=== PATIENT | male | born 1945 | race Caucasian/White ===

== ENCOUNTER → 2016-02-16 | Outpatient (CLI) | payer MEDICARE, OTHER | LOC: VM.DI 08:39 | PROVIDERS: ATTEND Internal Medicine | DX: T38.0X1A Poisoning by glucocorticoids and synthetic analogues, accidental (unintentional), initial encounter (principal); M81.8 Other osteoporosis without current pathological fracture; M81.0 Age-related osteoporosis without current pathological fracture | CPT/HCPCS: 77080 ==

== ENCOUNTER 2019-08-15 06:32 | Day surgery (SDC) | payer MEDICARE, OTHER ==
[2019-08-15] MEDS ORDERED: Lactated Ringers 1,000 ML IV SCH (07:00)
[2019-08-15] MEDS ORDERED: Propofol 200 MG/20 ML SDV ONE ×2 (07:59→09:21)
[2019-08-15] MEDS ORDERED: fentaNYL 100 MCG/2 ML SDV ONE (07:59)
[2019-08-15 10:02] VITALS: BP 132/72; PULSE 65
--- NOTE | 2019-08-15 14:11 | OR ---
DATE OF SURGERY: 08/15/2019. REFERRING PROVIDER: Brenna Monge DO PRE-OPERATIVE DIAGNOSES: History of ulcerative colitis, which sounds to be just proctitis before. Last colonoscopy was 07/2013. Does not look like there is any history of dysplasia. Last flare up of colitis was fall 2018. He is on chronic oral prednisone for this, as well as his ankylosing spondylitis. POST-OPERATIVE DIAGNOSES: 1. Four small polyps removed all using cold forceps. a. 2 mm polyp x3 at 45 cm. b. 2 mm rectal polyp. 2. Normal-appearing colonic mucosa. Random biopsies taken from: a. Four bites from the right colon. b. Four bites from transverse colon. c. Six bites from left colon. d. Two bites from rectal mucosa. 3. Mild left-sided diverticulosis. 4. Floppy redundant colon. PROCEDURE: Colonoscopy with polypectomy x4 using cold forceps. Random biopsies taken from each of the colonic segments as noted above. SURGEON: Brando Chong M.D. ANESTHESIA: Monitored anesthesia care. BOWEL PREP: Fair to good. Otoniel is a 74-year-old male who was brought to the endoscopy suite after discussing risks and benefits of the procedure. Informed consent was obtained for conscious sedation and colonoscopy with or without biopsy and/or polypectomy. We also discussed possibility of missed lesions. Pre-procedure exam was unremarkable. IV, oxygen, and monitors were placed. The patient was placed in the left lateral decubitus position. Sedation was administered and a digital rectal exam was performed and unremarkable, except for weak anal sphincter. Colonoscope was passed into the rectum and slowly advanced all the way to the cecum. The patient did have floppy redundant colon. Cecum was viewed and photographed. Colonoscope was slowly withdrawn and mucosa was closely observed in direct circumferential manner. Colonic mucosa was normal in appearance without any evidence for gross colitis. Random biopsies were taken from each segment as noted above. Otherwise, the ascending colon was unremarkable. The transverse colon was unremarkable. The descending colon and sigmoid colon revealed some mild diverticulosis. The sigmoid colon revealed 2 mm polyp x3 at 45 cm, all removed using cold forceps. Rectal mucosa did reveal 2 mm polyp at 10 to 12 cm. Retroflexion was performed. Rectal mucosa unremarkable. Scope was removed. The patient tolerated the procedure well. The patient was monitored until that baseline status. Discharge instructions were reviewed and the patient was discharged in good condition. COMPLICATIONS: None. TOTAL TIME: 30 minutes. ESTIMATED BLOOD LOSS: About 2 mL. RECOMMENDATIONS/FOLLOW-UP: We will await results of path report to determine ideal followup interval. I would like to kindly thank Brenna Monge for this referral. DMB: 08/15/2019 10:18:01 MODL: 08/15/2019 13:36:08 /[id number]
== END 2019-08-15 13:00 | disposition home or self-care (01) ==
LOC: VM.SDS 06:32
PROVIDERS: ATTEND Family Medicine
DX: Z12.11 Encounter for screening for malignant neoplasm of colon (principal); K62.1 Rectal polyp; K63.5 Polyp of colon; K57.30 Diverticulosis of large intestine without perforation or abscess without bleeding; M45.9 Ankylosing spondylitis of unspecified sites in spine; E78.5 Hyperlipidemia, unspecified; I10 Essential (primary) hypertension; D50.9 Iron deficiency anemia, unspecified; M81.0 Age-related osteoporosis without current pathological fracture; E09.9 Drug or chemical induced diabetes mellitus without complications; N40.0 Benign prostatic hyperplasia without lower urinary tract symptoms; T38.0X5A Adverse effect of glucocorticoids and synthetic analogues, initial encounter; Z11.59 Encounter for screening for other viral diseases; Z79.899 Other long term (current) drug therapy; Z79.52 Long term (current) use of systemic steroids; Z88.1 Allergy status to other antibiotic agents; Z88.8 Allergy status to other drugs, medicaments and biological substances; Z87.81 Personal history of (healed) traumatic fracture; Z87.19 Personal history of other diseases of the digestive system; Z86.718 Personal history of other venous thrombosis and embolism; Z98.890 Other specified postprocedural states
CPT/HCPCS: 00811; 88305; J2704; J3010; J7120; U0002

== ENCOUNTER 2020-07-23 13:39 | Inpatient (IN) | payer MEDICARE, OTHER ==
[2020-07-23] MEDS ORDERED: Polyethylene Glycol 3350 Powder 17 GM Packet PO PRN (15:27)
[2020-07-23] MEDS ORDERED: Non-Formulary Medication 1 Each (Naloxone Hcl [Narcan] 4 MG Spray) NAS PRN (15:27)
[2020-07-23] MEDS ORDERED: oxyCODONE 5 MG Tab PO PRN (15:27)
[2020-07-23] MEDS ORDERED: Acetaminophen 325 MG Tab PO SCH (15:30)
[2020-07-23] MEDS: Acetaminophen 325 MG Tab PO SCH (18:11)
[2020-07-23] MEDS: traMADol 50 MG Tab PO SCH (18:12)
[2020-07-23] MEDS: INDOMETHACIN 75 MG PO SCH (18:15)
--- NOTE | 2020-07-23 19:28 | HP ---
CHIEF COMPLAINT: Bilateral knee replacements on 07/20/2020. HISTORY OF PRESENT ILLNESS: This is a 75-year-old male with known underlying steroid-dependent ankylosing spondylitis and ulcerative colitis who had pain in his knees and legs for many months. He began walking more in February. He had been working hard on preoperative exercises and he had an excellent postoperative course. He had a lot of leg pain and muscle aches, but it is finally better today. He has been on scheduled tramadol 4 times a day and it is working. He does not think he has taken any p.r.n. oxycodone. He has used narcotics in the past for some of his back surgeries. The patient did have to use a suppository for bowel movement today, but attributes that to not eating much before surgery. He has not had any cough. No shortness of breath. No chest pain. Postoperative discharging hemoglobin was 11.5. His white count was up to 15.5. He was supposed to get some Solu-Medrol for stress doses of steroids at surgery. Otherwise, the patient has not been vaccinated for COVID, but does not believe he has been ill with it. ALLERGIES: Levaquin, tendon rupture. Statins, muscle aches. MEDICATIONS: Medication list is reviewed. He is on Eliquis 2.5 mg twice daily for DVT prophylaxis with a stop date of 08/01/2020. He is on the tramadol 50 mg every 6 hours for 30 doses, stop date 07/31/2020, but discussed will likely wean down to 3 times a day and twice a day. He is on oxycodone 5 to 10 mg every 4 hours as needed for pain, Prilosec 20 mg daily, Narcan if needed. Tylenol 650 every 6 hours for 5 days, stop date 07/28/2020, will likely change it to p.r.n. then. MiraLAX as needed for constipation. Prednisone 12.5 mg daily, recently discharged from prior to surgery. Lotensin 10 mg daily, Indocin 75 mg twice daily, Prolia every 6 months, vitamin D, calcium carbonate, and magnesium oxide 500 daily. At one point, Celebrex was ordered, but I suspect due to him being on Indocin, this was discontinued. PAST MEDICAL HISTORY: Includes: 1. Ankylosing spondylitis. He took immunosuppressive medications, but had recurrent infections and Arava causes diarrhea. 2. He has history of kidney stones. 3. He has had chronic back pain, but previous lumbar fusions needed for burst fractures with chronic pain syndrome and prolonged opioid use, but weaned off. At one point was on Cymbalta. 4. DVT associated with PICC line in the past for IV antibiotics. 5. Hyperlipidemia. 6. Essential hypertension. 7. Hypertriglyceridemia. 8. Prediabetes. 9. 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 10.Osteoporosis. 11.Obesity. 12.Osteoarthritis. 13.Sleep disorder. 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 PAST SURGICAL HISTORY: He has had those multiple back surgeries. He has had cataract surgery, wrist fusion, TURP, tendon repairs in his left hand, Achilles tendon surgery bilaterally for tendon rupture, kidney stone surgeries, shoulder repair, right clavicle partial resection for infections in 2012, mass excision in the axillary area, left nephrostomy tube placement with extracorporeal shockwave lithotripsy, even thoracic spine fusions, colonoscopies. SOCIAL HISTORY: The patient is . He lives independently at home. He does have a daughter traveling back to help him with his recovery. He spent time traveling the country in his RV this winter. He is a nonsmoker, nondrinker. FAMILY HISTORY: Both parents are . Dad had a heart attack. REVIEW OF SYSTEMS: General: No weight changes. HEENT: No trouble swallowing. Cardiac: No chest pain. No palpitations. Respiratory: No cough, no shortness of breath. Abdomen: No nausea, vomiting, or diarrhea. Did take some medications to get bowels moving, but attributes this to recent surgery. Otherwise, all systems reviewed and found to be negative unless otherwise stated. PHYSICAL EXAMINATION: Vital Signs: His weight 82.3 kg, temp 98.3, pulse 84, blood pressure 136/59, respiratory rate 16, O2 of 97% on room air. General: He is in no acute distress. Heart: Regular rate and rhythm. S1, S2 without murmur. Lungs: Lung sounds are clear to auscultation bilaterally without crackles or wheezes. Abdomen: Mildly distended, but positive bowel sounds. Soft, nontender. Extremities: Warm and dry. No edema. He has significant bruising on his shins and calves, but no calf tenderness. Knee excisions, I did not fully take down his wounds, but you could see that he has good range of motion for his stage of recovery and no joint effusion. Mental Status: Alert and orientated x3. ASSESSMENT: 1. Postoperative from bilateral knee replacement, 07/20/2020. 2. Underlying ankylosing spondylitis and ulcerative colitis, steroid- dependent. 3. Steroid-induced osteoporosis. 4. History of benign prostatic hyperplasia with previous TURP. 5. Essential hypertension. 6. Hyperlipidemia. 7. Steroid-induced diabetes, but now more prediabetes. We will check lab work tomorrow. No routine blood sugars planned. 8. Obesity. PLAN: The patient will be admitted for swing bed cares. He is code level 1. We will continue pain medications and reassess in the next 1 to 2 days for further tapering. We will get lab work tomorrow. We will finish the 9 more days of Eliquis. We will get him up and working with therapies and staple removal in 2 weeks postop. However, the patient will likely be discharged home by then. MKA: 07/23/2020 15:38:05 MODL: 07/23/2020 19:18:44 /[id number]
[2020-07-23] MEDS: Apixaban 2.5 MG Tab PO SCH (19:31)
[2020-07-23] MEDS ORDERED: Non-Formulary Medication 1 Each (Celecoxib [Celecoxib] 200 MG Capsule) PO SCH (20:00)
[2020-07-24] MEDS: traMADol 50 MG Tab PO SCH ×4 (00:14→19:51)
[2020-07-24] MEDS: Acetaminophen 325 MG Tab PO SCH ×5 (00:18→23:19)
[2020-07-24] MEDS: Omeprazole 20 MG Cap.CR PO SCH (06:32)
[2020-07-24 07:25] LABS: ANION GAP 7.3 mmol/L (5-15); CHLORIDE,CL 104 mmol/L (98-107); SODIUM,NA 140 mmol/L (136-145)
--- OUTSIDE RECORDS SUMMARY | 2020-07-24 08:06 | XMSREPORT ---
:1945 Author Organization [facility] s Address [address] [place] [address] Care Team Providers Name Role Phone DO Saleem Primary Care Provider DO Saleem Attributed Provider Reason for Visit Reason Comments Auth/Cert (Routine) Status Reason Specialty Diagnoses / Referred By Referred To Procedures Contact Contact Continuity of Diagnoses Bilateral primary osteoarthritis of knee [place], [facility] Procedures ARTHROPLASTY KNEE [facility] COMPARTMENTS WWO EZEQUIEL Aguilar MD [address] [place] [address] Encounter Details Date Type Department Care Team Description 07/20/2020 - [facility] Jeff Sutherland Ankylosin g 07/23/[address] spondylitis ([facility]) [address] [place] [address] [place] [address] [place] [address] [phone] Allergies Active Allergy Reactions Severity Noted Date Comments Levaquin Rash, Unknown/Not Verified 02/13/2012 R uptured tendons per patient. Hmg-Coa-R Inhibitors Statin Contraindication - 017 Intolerance Simvastatin Statin Contraindication - 04/02/2014 Intolerance documented as of this encounter (statuses as of 07/23/2020) Medications Medication Sig Dispensed Refills Start Date End Date Status magnesium oxide Take 500 mg by mouth 0 Active 500 MG TABS tablet 1 time per day. vitamin D3, Take 2,000 Units by 0 Active cholecalciferol, mouth 1 time per 1000 UNITS tablet day. calcium carbonate Take 1,200 mg by 0 Active 600 mg tablet mouth 1 time per day. denosumab (PROLIA) Inject 1 mL (60 mg) 1 mL 1 07/30/2019 Active 60 MG/ML subcutaneously Every 1 subcutaneous 6 months solutionIndication s: Senile osteoporosis predniSONE 2.5 mg Take 1 tablet (2.5 90 tablet 4 07/13/2020 Active tabletIndications: mg) by mouth 1 time Ulcerative colitis per day Take in with complication, addition to the 10 unspecified mg dose to equal location (HCC) 12.5 mg benazepril Take 1 tablet (10 90 tablet 3 07/13/2020 Active (LOTENSIN) 10 mg mg) by mouth 1 time tabletIndications: per day Essential hypertension indomethacin cr TAKE 1 CAPSULE BY 180 capsule 3 07/13/2020 Active (INDOCIN CR) 75 MG MOUTH TWICE A DAY capsuleIndications WITH MEALS : Ankylosing spondylitis, unspecified site of spine (HCC) Additional Information Patient taking differently: 75 mg Oral Two times a day with meals, TAKE 1 CAPSULE BY MOUTH TWICE A DAY WITH MEALS, Reported on 07/20/2020 predniSONE 10 mg TAKE 1 TABLET BY 90 tablet 3 07/13/2020 Active tabletIndications: MOUTH ONCE DAILY Spondyloarthropathy EVERY MORNING WITH FOOD Additional Information Patient taking differently: 10 mg Oral DAILY, TAKE 1 TABLET BY MOUTH ONCE DAILY EVERY MORNING WITH FOOD, Reported on 07/20/2020 oxyCODONE (OXY-IR) 5 mg Take 1-2 tablets 30 tablet 0 1 Active tablet (immediate (5-10 mg) by mouth release)Indications: Status Every 4 hours as post total bilateral knee needed for moderate replacement pain or severe pain for up to 30 doses traMADol (ULTRAM) 50 mg Take 1 tablet (50 30 tablet 0 07/24/19 21 Active tabletIndications: Status mg) by mouth Every 021 post total bilateral knee 6 hours for 30 replacement doses celecoxib (CELEBREX) 200 mg Take 1 capsule (200 20 capsule 0 0 07/23/2020 Active capsuleIndications: Status mg) by mouth 2 021 post total bilateral knee times a day for 20 replacement doses nalOXone (NARCAN) 4 MG/0.1ML [place] 1 spray (4 0.2 mL 0 07/07 Active nasal sprayIndications: mg) into one 022 Status post total bilateral nostril 1 time; may knee replacement repeat in opposite nostril in 2 to 3 minutes if person does not respond. omeprazole (PRILOSEC) 20 mg Take 1 capsule (20 35 capsule 0 Active capsuleIndications: Status mg) by mouth 1 time 021 post total bilateral knee a day in the replacement morning apixaban (ELIQUIS) 2.5 MG Take 1 tablet (2.5 18 tablet 0 07/23 Active tabletIndications: mg) by mouth 2 021 Prophylaxis of DVT in times a day for 9 Orthopedic Surgery days Indications: Prophylaxis of Deep Vein Thrombosis in Orthopedic Surgery acetaminophen (TYLENOL) 325 Take 2 tablets (650 40 tablet 0 Active mg tabletIndications: Status mg) by mouth Every 021 post total bilateral knee 6 hours for 5 days replacement polyethylene glycol Take 1 packet by 30 packet 0 07/23/2020 Active (MIRALAX) 17 g mouth 1 time a day 021 packetIndications: Status as needed for post total bilateral knee constipation replacement Dissolve in 4 to 8 ounces of water, juice, soda, coffee, tea. 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 Encounter for long-term (current) use of other high-ri sk medications 12/22/2014 Bilateral knee pain 12/22/2014 Overview: R knee drained x 2 osteoarthritis presen t, synvisc helps last given in 09/07/15, R knee 60 ml removed 10/23 and got synvisc again Primary osteoarthritis involving multiple joints 12/22 Chronic pain syndrome 12/22/2014 Thoracic spine fracture 09/16/2014 Hypertriglyceridemia 08/07/2014 Post-traumatic arthritis of left wrist 04/10/2014 Obesity 01/07/2014 Overview: Trial of phentermine 01/19, no help so s topped 03/23 Sleep disorder 01/07/2014 Overview: saw sleep clinic, intrinsic disorder wit h frequent arousals and snoring 12/20. Trial of Ativan at . Iron deficiency anemia 08/19/2013 Overview: egd normal 07/20, c-scope quiescent IBD Senile osteoporosis 05/06/2013 Overview: T -2.5 at the hip and 0.8 at the wrist, spine can't be assessed due to surgery. He is on prolia for Osteoporosis since 05/19 2. Improvement in bone density compared to the 2007 baseline. Stable bone density compared to the most recent prior study from 2014. Dexa 05/25 showed T -1.3 at the hips but -1.9 at the femoral neck. Increased left and stable right hip densities. 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 Stopped Januvia due to cost 10/22 Hyperlipemia 01/31/2013 Overview: mild and could not tolerate statins due to myalgia. Will try Zocor again in 01/19, still myalgia pt prefers not to take meds for cholesterol Hypertension 01/31/2013 Chronic back pain 01/31/2013 Overview: S/p lumbar fusion in 10/19 on a pain cont ract signed 01/18, lumbar surgery again for fracture in 03/22. Tried cymbalta for mood disorder but stopped in 04/19. 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 Off immunosuppressants for Ankylosing spondylitis other than prednisone during that time. DVT of upper extremity (deep vein thrombosis) 11/10/19 12 Overview: Probably Picc lines related completed co umadin Closed fracture of clavicle 12/02/2010 Right arm pain 09/08/2010 Localized osteoarthritis of hand 11/25/2008 Ankylosing spondylitis 04/01/2002 Overview: Took mtx in the past caused mental probl ems chronically on steroids like above 10 mg per day. 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 Flare increased steroids 06/23, last scop e 08/25 biopsies no diagnostic abnormalities, hyperplastic polyp Calculus of kidney Overview: Never had a gout attack but on allopurin ol to prevent kidney stones although states stones were calcium stones but was drinking more pop at that time Steroid-induced osteoporosis Overview: 1. Osteoporosis. T -2.8 in the hip, sta rted prolia 2011, took fosamax prior 2. Improvement in bone density compared to the 2007 baseline. Stable bone density compared to the 2009 exam. Had a clavicle fracture, and spinal frac tures, rib fractures (fractures starting in ) T -2.7 in 05/21 improved density continue prolia T9 fracture and thoracic fusion surgery in 09/20 discussed forteo but he declines prefers to stay with prolia documented as of this encounter (statuses as of 07/23/2020) Resolved Problems Problem Noted Date Resolved Date Hematoma of neck 03/07/2012 12/24/2014 care home current use of anticoagulant therapy 11/10/2011 04/04/2012 Osteoarthritis of spine 09/15/2010 04/04/2012 BPH w/o urinary obs/LUTS 11/16/2009 04/04/2012 Pure hypercholesterolemia 07/13/2007 02/03/2013 Backache 02/10/2003 02/03/2013 Arthropathy 04/01/2002 02/03/2013 Essential hypertension, benign 04/01/2002 3 Hypertrophy (benign) of prostate 04/01/2002 013 documented as of this encounter (statuses as of 07/23/2020) Immunizations Name Administration Dates Next Due Pneumococcal Conj PCV13 08/07/2014 Pneumococcal Polysaccharide PPSV23 12/30/2009 Td(adult)preservative free 12/30/2009 Zoster Live(Zostavax) 01/12/2010 documented as of this encounter Social History Tobacco Use Types Packs/Day Years Used Date Never Smoker Smokeless Tobacco: Never Used Alcohol Use Standard Drinks/Week Comments No 0 (1 standard drink = 0.6 oz pure alcoho l) Alcohol Habits Answer Date Recorded How often do you have a drink containing alcohol? Never 07/20/2020 How many drinks containing alcohol do you have on a typical Not asked day when you are drinking? How often do you have six or more drinks on one occasion? [place] 07/20/2020 Sex Assigned at Date Recorded Male 06/11/2020 3:17 PM CDT documented as of this encounter Last Filed Vital Signs Vital Sign Reading Time Taken Comments Blood Pressure 122/55 07/23/2020 7:50 AM CDT Pulse 82 07/23/2020 7:50 AM CDT Temperature 36.8 C (98.2 F) 07/23/2020 7:50 AM CDT Respiratory Rate 16 07/23/2020 7:50 AM CDT Oxygen Saturation 96% 07/23/2020 7:50 AM CDT Inhaled Oxygen Concentration - - Weight 82.3 kg (181 lb 7 oz) 07/20/2020 5:54 AM CDT Height 166.4 cm (5' 5.51") 07/20/2020 5:54 AM CDT Body Mass Index 29.72 07/20/2020 5:54 AM CDT documented in this encounter Functional Status Functional Status Response Date of Assessment Is the person deaf or does he/she have serious difficulty No 07/31/2017 hearing? Is this person blind or does he/she have difficulty No 07/31/2017 seeing even when wearing glasses? Do you have difficulty with walking, balance, climbing No 10/29/2018 stairs, or had a fall in the last 3 months? Does the patient have difficulty dressing or bathing? No 07/31/2017 Because of a physical, mental, or emotional condition; No 07/31/2017 does this person have difficulty doing errands alone such as visiting a doctor's office or shopping? Cognitive Status Response Date of Assessment Because of a physical, mental, or emotional condition; No 07/31/2017 does this person have serious difficulty concentrating, remembering, or making decisions? documented as of this encounter Discharge Summaries Not on filedocumented in this encounter Medications at Time of Discharge Medication Sig Dispensed Refills Start Date End Date oxyCODONE (OXY-IR) 5 mg Take 1-2 tablets 30 tablet 0 2020 tablet (immediate (5-10 mg) by mouth release)Indications: Every 4 hours as Status post total needed for moderate bilateral knee pain or severe pain replacement for up to 30 doses traMADol (ULTRAM) 50 mg Take 1 tablet (50 30 tablet 0 07/23 tabletIndications: Status mg) by mouth Every 6 1 post total bilateral knee hours for 30 doses replacement celecoxib (CELEBREX) 200 Take 1 capsule (200 20 capsule 0 mg capsuleIndications: mg) by mouth 2 times 1 Status post total a day for 20 doses bilateral knee replacement apixaban (ELIQUIS) 2.5 MG Take 1 tablet (2.5 18 tablet 0 tabletIndications: mg) by mouth 2 times 1 Prophylaxis of DVT in a day for 9 days Orthopedic Surgery Indications: Prophylaxis of Deep Vein Thrombosis in Orthopedic Surgery acetaminophen (TYLENOL) Take 2 tablets (650 40 tablet 0 325 mg tabletIndications: mg) by mouth Every 6 1 Status post total hours for 5 days bilateral knee replacement polyethylene glycol Take 1 packet by 30 packet 0 07/23/2020 (MIRALAX) 17 g mouth 1 time a day 1 packetIndications: Status as needed for post total bilateral knee constipation replacement Dissolve in 4 to 8 ounces of water, juice, soda, coffee, tea. predniSONE 2.5 mg Take 1 tablet (2.5 90 tablet 4 07/13/2020 tabletIndications: mg) by mouth 1 time Ulcerative colitis with per day Take in complication, unspecified addition to the 10 location (HCC) mg dose to equal 12.5 mg benazepril (LOTENSIN) 10 Take 1 tablet (10 90 tablet 3 08/2020 mg tabletIndications: mg) by mouth 1 time Essential hypertension per day indomethacin cr (INDOCIN TAKE 1 CAPSULE BY 180 capsule 3 08/2020 CR) 75 MG MOUTH TWICE A DAY capsuleIndications: WITH MEALS Ankylosing spondylitis, unspecified site of spine (HCC) predniSONE 10 mg TAKE 1 TABLET BY 90 tablet 3 07/13/2020 tabletIndications: MOUTH ONCE DAILY Spondyloarthropathy EVERY MORNING WITH FOOD denosumab (PROLIA) 60 Inject 1 mL (60 mg) 1 mL 1 07/29 MG/ML subcutaneous subcutaneously Every 1 solutionIndications: 6 months Senile osteoporosis vitamin D3, Take 2,000 Units by 0 cholecalciferol, 1000 mouth 1 time per UNITS tablet day. calcium carbonate 600 mg Take 1,200 mg by 0 tablet mouth 1 time per day. magnesium oxide 500 MG Take 500 mg by mouth 0 TABS tablet 1 time per day. nalOXone (NARCAN) 4 [place] 1 spray (4 mg) 0.2 mL 0 2020 MG/0.1ML nasal into one nostril 1 2 sprayIndications: Status time; may repeat in post total bilateral knee opposite nostril in replacement 2 to 3 minutes if person does not respond. omeprazole (PRILOSEC) 20 Take 1 capsule (20 35 capsule 0 mg capsuleIndications: mg) by mouth 1 time 1 Status post total a day in the morning bilateral knee replacement documented as of this encounter Progress Notes Jojo Dc PA - 07/23/2020 10:49 AM CDT Ortho Progress Note Otoniel Moncada is a 75yr male here for 3 Days Post-Op, Procedure(s): BILATERAL TOTAL KNEE REPLACEMENT. Patient of BP 122/55 | Pulse 82 | Temp 98.2 F (36.8 C) | Resp 16 | Ht 1.664 m (5' 5.51") | Wt 82.3 kg (181 lb 7 oz) | SpO2 96% | BMI 29.72 kg/m Maximum Temperatures (last 24 hours) Temperature Maximum Max Temp 98.7 F (37.1 C) { Lab Results Component Value Date HEMOGLOBIN 11.8 (L) 07/21/2020 Patient doing ok, complains of mild pain. The patient denies nausea. The wound has No drainage. Compartments soft and non-tender. Distal NV intact. Impression: Procedure(s): BILATERAL TOTAL KNEE REPLACEMENT Past Medical History: Diagnosis Date Ankylosing spondylitis (HCC) Arthritis degenerative Back pain BPH (benign prostatic hypertrophy) without obstruction Chronic back pain Dermatitis RT upper chest DVT (deep venous thrombosis) (HCC) upper extremity, under arm Fracture, clavicle right, nonunion Hematoma of neck Hyperlipidemia Hypertension benign essential Iron deficiency anemia Kidney stones L5 vertebral fracture (HCC) Leg pain, bilateral Osteoporosis steroid induced S/P lumbar fusion S/P TURP Spondyloarthropathy Steroid-induced diabetes (HCC) patient denies Ulcerative proctitis (HCC) chronic Plan: Doing well with Physical and Occupational Therapy today. Continue with Care Plan. Plan swing bed in [place] today. Jojo reynoso PA - 07/22/2020 8:58 AM CDT Ortho Progress Note Otoniel Moncada is a 75yr male here for 2 Days Post-Op, Procedure(s): BILATERAL TOTAL KNEE REPLACEMENT. Patient of BP 124/63 | Pulse 77 | Temp 98.5 F (36.9 C) | Resp 16 | Ht 1.664 m (5' 5.51") | Wt 82.3 kg (181 lb 7 oz) | SpO2 93% | BMI 29.72 kg/m Maximum Temperatures (last 24 hours) Temperature Maximum Max Temp 99 F (37.2 C) { Lab Results Component Value Date HEMOGLOBIN 11.8 (L) 07/21/2020 Patient doing ok, complains of mild pain. The patient denies nausea. The wound has No drainage. Compartments soft and non-tender. Distal NV intact. Impression: Procedure(s): BILATERAL TOTAL KNEE REPLACEMENT Past Medical History: Diagnosis Date Ankylosing spondylitis (HCC) Arthritis degenerative Back pain BPH (benign prostatic hypertrophy) without obstruction Chronic back pain Dermatitis RT upper chest DVT (deep venous thrombosis) (HCC) upper extremity, under arm Fracture, clavicle right, nonunion Hematoma of neck Hyperlipidemia Hypertension benign essential Iron deficiency anemia Kidney stones L5 vertebral fracture (HCC) Leg pain, bilateral Osteoporosis steroid induced S/P lumbar fusion S/P TURP Spondyloarthropathy Steroid-induced diabetes (HCC) patient denies Ulcerative proctitis (HCC) chronic Plan: Will continue with Physical and Occupational Therapy today. Continue with Care Plan. Davide Mueller MD - 07/22/2020 8:35 AM CDT Hospitalist Consult Note Assessment / Plan Active Problems: Ankylosing spondylitis (HCC) Ulcerative (chronic) proctitis (HCC Steroid-induced osteoporosis Closed fracture of clavicle DVT of upper extremity (deep vein thrombosis) (HCC) S/P TURP Arthritis of knee, left S/P lumbar fusion Hyperlipemia Hypertension Chronic back pain Steroid-induced diabetes (HCC) Senile osteoporosis Iron deficiency anemia Obesity Sleep disorder Hypertriglyceridemia Spondyloarthropathy Bilateral knee pain Chronic pain syndrome #SP bilateral total knee arthroplasty - Pain control, scheudled tylenol, tramadol, and prn's - Bowel reg prn - Continue home Prednisone - IS #Ankylosing spondylitis (HCC)- Continue scheduled NSAID #Ulcerative (chronic) proctitis (HCC)- Resume home prednisone dosing Chronic medical conditions: #Hyperlipemia- Stable #Hypertension- Continue home benazapril #Chronic back pain- Stable #Prediabetes- last A1c 6.0. Stable #BPH- Monitor UOP #Obesity Code status: Full DVT ppx: Eliquis per Ortho, SCD's Diet: ADAT Disposition: Will keep today for pain control and therapy. DC tomorrow to [place] swing bed. Hisdaughter will pick him up. Reason for Consult Post operative medical management HPI / History / ROS Patient is a 75 yo male with a PMH of UC on chronic prednisone, ankylosing spondylitis, OA, HTN, HLD, UE dvt secondary to trauma of right clavicle 10 years ago, not on anticoags. He was admitted on 07/20 for bilateral TKA due to pain and OA. Doing well today. No new complains. Pain manageable and doing well with therapy. History Patient Active Problem List Diagnosis Ankylosing spondylitis (HCC) Ulcerative (chronic) proctitis (HCC) Calculus of kidney Localized osteoarthritis of hand Right arm pain Steroid-induced osteoporosis Closed fracture of clavicle DVT of upper extremity (deep vein thrombosis) (HCC) Nonunion of clavicle fracture S/P TURP Arthritis of knee, left S/P lumbar fusion Hyperlipemia Hypertension Chronic back pain Steroid-induced diabetes (HCC) L5 vertebral fracture (HCC) Senile osteoporosis Iron deficiency anemia Obesity Sleep disorder Post-traumatic arthritis of left wrist Hypertriglyceridemia Thoracic spine fracture (HCC) Spondyloarthropathy Encounter for long-term (current) use of other high-risk medications Bilateral knee pain Primary osteoarthritis involving multiple joints Chronic pain syndrome Ulnar neuropathy at elbow, right Rupture of extensor tendon of left hand Cubital tunnel syndrome, right Current Facility-Administered Medications Medication Dose Route Frequency apixaban (ELIQUIS) tablet 2.5 mg 2.5 mg Oral 2 times a day sodium chloride 0.9% flush (adult) 10 mL 10 mL IV 2 times a day and prn acetaminophen (TYLENOL) tablet 650 mg 650 mg Oral Every 6 hours traMADol (ULTRAM) tablet 50 mg 50 mg Oral Every 6 hours oxyCODONE (OXY-IR) tablet 5-10 mg 5-10 mg Oral Every 4 hours prn fentaNYL 100 mcg/2 mL preservative free injection solution 50 mcg 50 mcg IV Every 30 minutes prn ketorolac (TORADOL) intravenous injection 15 mg 15 mg IV Every 6 hours prn celecoxib (celeBREX) capsule 200 mg 200 mg Oral 2 times a day nalOXone (NARCAN) injection solution (vial) 0.4 mg 0.4 mg Injection Every 2 minutes prn nalOXone (NARCAN) injection solution (vial) 0.2 mg 0.2 mg Injection Every 2 minutes prn senna-docusate sodium (SENOKOT-S;PERICOLACE) tablet 1 tablet 1 tablet Oral 2 times a day polyethylene glycol (MIRALAX) packet 1 packet 1 packet Oral Daily magnesium hydroxide (MILK OF MAGNESIA) oral suspension 30 mL 30 mL Oral 2 times a day prn bisacodyl (DULCOLAX) enteric coated tablet 5 mg 5 mg Oral 2 times a day prn bisacodyl (DULCOLAX) suppository 10 mg 10 mg Rectal 1 time a day prn ondansetron (ZOFRAN) injection solution 4 mg 4 mg IV Every 4 hours prn benzocaine-menthol (CEPACOL w/ BENZOCAINE) lozenge 1 lozenge 1 lozenge Mouth/Throat Every 4 hours prn benazepril (LOTENSIN) tablet 10 mg 10 mg Oral daily magnesium oxide tablet 500 mg 500 mg Oral daily predniSONE tablet 12.5 mg 12.5 mg Oral Daily Allergies Allergen Reactions Levaquin Rash and Unknown/Not Verified Ruptured tendons per patient. Statins [Hmg-Coa-R Inhibitors] Statin Contraindication - Intolerance Zocor [Simvastatin] Statin Contraindication - Intolerance Past Medical History: Diagnosis Date Ankylosing spondylitis (HCC) Arthritis degenerative Back pain BPH (benign prostatic hypertrophy) without obstruction Chronic back pain Dermatitis RT upper chest DVT (deep venous thrombosis) (HCC) upper extremity, under arm Fracture, clavicle right, nonunion Hematoma of neck Hyperlipidemia Hypertension benign essential Iron deficiency anemia Kidney stones L5 vertebral fracture ([facility]) Leg pain, bilateral Osteoporosis steroid induced S/P lumbar fusion S/P TURP 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 Past Surgical History: Procedure Laterality Date BACK SURGERY CARPAL TUNNEL Left 05/06/2016 Procedure: LEFT CARPAL TUNNEL RELEASE, LEFT ULNAR TUNNEL RELEASE;; Surgeon: Herberth Woody MD CATARACT EXTRACTION Bilateral COLONOSCOPY couple of them CYSTOSCOPY WITH STENT Left 2003 ureteroscopy, lithotripsy and left stent, ESWL DEBRIDEMENT PROCEDURE 02/17/2012 LEFT FOOT I&D W/FOREIGN BODY EXCISION; Surgeon: Luis Monge DPM DEBRIDEMENT PROCEDURE 04/26/2012 RIGHT SHOULDER INCISION &DRAINAGE ; Surgeon: Benji Ellison MD DEBRIDEMENT PROCEDURE Right 12/06/2012 Procedure: RIGHT SHOULDER IRRIGATION & DEBRIDEMENT,;; Surgeon: Benji Ellison MD EXTRACORPOREAL SHOCK WAVE LITHOTRIPSY Right with nephrostomy tube placement EXTRACORPOREAL SHOCK WAVE LITHOTRIPSY Right , FUSION LUMBAR THORACIC SPINE N/A 10/18/2012 Procedure: L1-L2, L3-L4 TRANSFORAMINAL LUMBAR INTERBODY FUSION W/ T12-L5 PEDICLE SCREW FIXATION;; Surgeon: Brennan Cash MD FUSION LUMBAR THORACIC SPINE N/A 03/11/2013 Procedure: OPEN L5 TO ILEUM STABILIZATION ;; Surgeon: Brennan Cash MD FUSION LUMBAR THORACIC SPINE N/A 09/17/2014 Procedure: T6-T12 THORACIC FUSION WITH O ARM;; Surgeon: Brennan Cash MD IR NEPHROSTOMY TUBE PLACEMENT RIGHT Right 2003 x 2 nephrostolithotomy MASS EXCISION Left 09/30/2013 Procedure: LEFT AXILLARY MASS EXCISION;; Surgeon: Rogelio Chan MD SHOULDER REPAIR 04/19/2012 RIGHT CLAVICLE PARTIAL RESECTION ; Surgeon: Benji Ellison MD SHOULDER REPAIR Right 01/11/2013 Procedure: RIGHT SHOULDER ANTIBIOTIC BEADS REMOVAL;; Surgeon: Benji Ellison MD SPINE SURGERY 10/19 lumbar fusion SURGERY 1969 spine and tailbone fusion SURGERY 09/2010 bilateral primary repair of achilles tendon with flexor tendons with flexor hallucis longus tendon transfer and tenodesis of the flexor digitorum longus SURGERY 1975 kidney stones TENDON REPAIR TRANSFER Left 08/01/2017 Procedure: I;; Surgeon: Herberth Woody MD TOTAL KNEE BILATERAL Bilateral 07/20/2020 Procedure: BILATERAL TOTAL KNEE REPLACEMENT;; Surgeon: Jeff Sutherland MD TURP LASER ASSISTED 2005 WRIST FUSION Left 08/01/2017 Procedure: LEFT WRIST FUSION W/ PROXIMAL ROW CARPECTOMY AND AUTOLOGOUS BONE GRAFT; RECONSTRUCTION OF LEFT HAND EXTENSOR TENDONS USING GRACILIS TENDON ALLOGRAFT;; Surgeon: Herberth Woody MD YAG CAPSULOTOMY - OS - LEFT EYE Left 10/25/2018 Dr Shamar Monge Family History Problem Relation Age of Onset Other Mother brain tumor Arthritis Mother Not otherwise listed - Cancer Mother Heart Attack Father Arthritis Father Heart Disease Father Hypertension Father Cataracts Neg Hx Glaucoma Neg Hx Macular Degeneration Neg Hx Anesth Problems Neg Hx Social History Socioeconomic History Marital status: Spouse name: Not on file Number of children: Not on file Years of education: Not on file Highest education level: Not on file Tobacco Use Smoking status: Never Smoker Smokeless tobacco: Never Used Substance and Sexual Activity Alcohol use: No Alcohol/week: 0.0 standard drinks Drug use: No Social Determinants of Health Physical Activity: Days of Exercise per Week: Minutes of Exercise per Session: Stress: Feeling of Stress : Social Connections: Frequency of Communication with Friends and Family: Frequency of Social Gatherings with Friends and Family: Attends Congregational Services: Active Member of Clubs or Organizations: Attends Club or Organization Meetings: Marital Status: Intimate Partner Violence: Fear of Current or Ex-Partner: Emotionally Abused: Physically Abused: Sexually Abused: Financial Resource Strain: Difficulty of Paying Living Expenses: Food Insecurity: Worried About Running Out of Food in the Last Year: Ran Out of Food in the Last Year: Transportation Needs: Lack of Transportation (Medical): Lack of Transportation (Non-Medical): Alcohol Use: Not At Risk Frequency of Alcohol Consumption: Never Average Number of Drinks: Not on file Frequency of Binge Drinking: Never Review of Systems Review of Systems Respiratory: Negative for apnea. Cardiovascular: Negative for chest pain. Gastrointestinal: Negative for abdominal pain. Physical / Results Current Vital Signs Vitals: 07/22/20 0714 BP: 124/63 Pulse: 77 Resp: 16 Temp: 98.5 F (36.9 C) SpO2: 93% Pain Ratin Physical Exam Constitutional: General: He is not in acute distress. HENT: Head: Normocephalic. Eyes: Pupils: Pupils are equal, round, and reactive to light. Cardiovascular: Rate and Rhythm: Normal rate and regular rhythm. Pulmonary: Effort: Pulmonary effort is normal. Breath sounds: Normal breath sounds. Abdominal: General: There is distension. Palpations: Abdomen is soft. Hernia: A hernia is present. Musculoskeletal: Comments: Bilateral césar wraps in place Neurological: General: No focal deficit present. Mental Status: He is alert. Psychiatric: Mood and Affect: Mood normal. Labs: Results for OTONIEL MONCADA ( ) as of 07/21/2020 11:18 Ref. Range 07/21/2020 05:31 WBC Latest Ref Range: 4.0 - 11.0 K/uL 15.5 (H) RBC Latest Ref Range: 4.40 - 5.80 M/uL 3.54 (L) Hemoglobin Latest Ref Range: 13.5 - 17.5 g/dL 11.8 (L) Hematocrit Latest Ref Range: 40.0 - 50.0 % 36.4 (L) MCV Latest Ref Range: 80.0 - 98.0 fL 102.8 (H) MCH Latest Ref Range: 25.5 - 34.0 pg 33.3 MCHC Latest Ref Range: 31.5 - 36.5 g/dL 32.4 RDW-CV Latest Ref Range: 11.5 - 15.5 % 13.8 RDW-SD Latest Ref Range: 35.5 - 50.0 fl 50.2 (H) Platelet Count Latest Ref Range: 140 - 400 K/uL 266 MPV Latest Ref Range: 8.5 - 12.0 fL 10.0 Seg Neut Absolute Latest Ref Range: 1.8 - 8.0 K/uL 12.3 (H) Lymphocytes Absolute Latest Ref Range: 0.8 - 4.1 K/uL 2.0 Monocytes Absolute Latest Ref Range: 0.0 - 1.0 K/uL 1.2 (H) Eosinophils Absolute Latest Ref Range: 0.0 - 0.7 K/uL 0.0 Basophil Absolute Latest Ref Range: 0.0 - 0.2 K/uL 0.0 Neutrophils Percent Latest Units: % 78.8 Neutrophils Abs. (Segs and Bands) Latest Units: /uL 12,300 Lymphocytes Percent Latest Units: % 12.6 Monocytes Percent Latest Units: % 8.0 Eosinophils Percent Latest Units: % 0.0 Basophil Percent Latest Units: % 0.1 Glucose Latest Ref Range: 70 - 100 mg/dL 145 (H) Sodium Latest Ref Range: 135 - 145 meq/L 135 Potassium Latest Ref Range: 3.5 - 5.3 meq/L 3.8 Chloride Latest Ref Range: 99 - 110 meq/L 103 CO2 Latest Ref Range: 20 - 29 meq/L 24 Anion Gap with K Latest Ref Range: 6 - 20 meq/L 12 BUN Latest Ref Range: 6 - 22 mg/dL 15 Creatinine Latest Ref Range: 0.80 - 1.30 mg/dL 0.79 (L) BUN/Creatinine Ratio Latest Ref Range: 10.0 - 25.0 19.0 Calcium Latest Ref Range: 8.5 - 10.5 mg/dL 8.2 (L) Corrected Calcium Latest Ref Range: 8.5 - 10.5 mg/dL 8.8 Phosphorus Latest Ref Range: 2.5 - 4.5 mg/dL 2.6 Albumin Latest Ref Range: 3.5 - 5.0 g/dL 3.3 (L) eGFR Latest Ref Range: >=60 mL/min/1.73m2 >90 eGFR Non- Latest Ref Range: >=60 mL/min/1.73m2 >90 Davide Medrano DO Orthopedic Surgery PGY1 Associated attestation - Ricardo Singh MD - 07/22/2020 12:41 PM CDT I discussed the patient with the resident and personally interviewed and examined the patient. 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 Closed fracture of clavicle DVT of upper extremity (deep vein thrombosis) (HCC) S/P TURP Arthritis of knee, left S/P lumbar fusion Hyperlipemia Hypertension Chronic back pain Steroid-induced diabetes (HCC) Senile osteoporosis Iron deficiency anemia Obesity Sleep disorder Hypertriglyceridemia Spondyloarthropathy Bilateral knee pain Chronic pain syndrome #POD1 bilateral total knee arthroplasty - Pain control, scheudled tylenol, tramadol, and prn's - Bowel reg - Continue home Prednisone - IS #Ankylosing spondylitis (HCC)- Continue scheduled NSAID #Ulcerative (chronic) proctitis (HCC)- Extra dose of steroid today and then resume home dosing Chronic medical conditions: #Hyperlipemia- Stable #Hypertension- Resume home benazapril #Chronic back pain- Stable #Prediabetes- last A1c 6.0. Stable #BPH- Monitor UOP #Obesity Code status: Full DVT ppx: Eliquis per Ortho, SCD's Diet: ADAT Disposition: PT/OT today. Will DC once ready to [place] [facility]. Reason for Consult Post operative medical management HPI / History / ROS Patient is a 75 yo male with a PMH of UC on chronic prednisone, ankylosing spondylitis, OA, HTN, HLD, UE dvt secondary to trauma of right clavicle 10 years ago, not on anticoags. He was admitted on 07/20 for bilateral TKA due to pain and OA. Doing well today. No new complains. Pain well controlled. History Patient Active Problem List Diagnosis Ankylosing spondylitis (HCC) Ulcerative (chronic) proctitis (HCC) Calculus of kidney Localized osteoarthritis of hand Right arm pain Steroid-induced osteoporosis Closed fracture of clavicle DVT of upper extremity (deep vein thrombosis) (HCC) Nonunion of clavicle fracture S/P TURP Arthritis of knee, left S/P lumbar fusion Hyperlipemia Hypertension Chronic back pain Steroid-induced diabetes (HCC) L5 vertebral fracture (HCC) Senile osteoporosis Iron deficiency anemia Obesity Sleep disorder Post-traumatic arthritis of left wrist Hypertriglyceridemia Thoracic spine fracture (HCC) Spondyloarthropathy Encounter for long-term (current) use of other high-risk medications Bilateral knee pain Primary osteoarthritis involving multiple joints Chronic pain syndrome Ulnar neuropathy at elbow, right Rupture of extensor tendon of left hand Cubital tunnel syndrome, right Current Facility-Administered Medications Medication Dose Route Frequency apixaban (ELIQUIS) tablet 2.5 mg 2.5 mg Oral 2 times a day sodium chloride 0.9% flush (adult) 10 mL 10 mL IV 2 times a day and prn acetaminophen (TYLENOL) tablet 650 mg 650 mg Oral Every 6 hours traMADol (ULTRAM) tablet 50 mg 50 mg Oral Every 6 hours oxyCODONE (OXY-IR) tablet 5-10 mg 5-10 mg Oral Every 4 hours prn fentaNYL 100 mcg/2 mL preservative free injection solution 50 mcg 50 mcg IV Every 30 minutes prn ketorolac (TORADOL) intravenous injection 15 mg 15 mg IV Every 6 hours prn celecoxib (celeBREX) capsule 200 mg 200 mg Oral 2 times a day nalOXone (NARCAN) injection solution (vial) 0.4 mg 0.4 mg Injection Every 2 minutes prn nalOXone (NARCAN) injection solution (vial) 0.2 mg 0.2 mg Injection Every 2 minutes prn senna-docusate sodium (SENOKOT-S;PERICOLACE) tablet 1 tablet 1 tablet Oral 2 times a day polyethylene glycol (MIRALAX) packet 1 packet 1 packet Oral Daily magnesium hydroxide (MILK OF MAGNESIA) oral suspension 30 mL 30 mL Oral 2 times a day prn bisacodyl (DULCOLAX) enteric coated tablet 5 mg 5 mg Oral 2 times a day prn bisacodyl (DULCOLAX) suppository 10 mg 10 mg Rectal 1 time a day prn ondansetron (ZOFRAN) injection solution 4 mg 4 mg IV Every 4 hours prn benzocaine-menthol (CEPACOL w/ BENZOCAINE) lozenge 1 lozenge 1 lozenge Mouth/Throat Every 4 hours prn benazepril (LOTENSIN) tablet 10 mg 10 mg Oral daily magnesium oxide tablet 500 mg 500 mg Oral daily predniSONE tablet 12.5 mg 12.5 mg Oral Daily Allergies Allergen Reactions Levaquin Rash and Unknown/Not Verified Ruptured tendons per patient. Statins [Hmg-Coa-R Inhibitors] Statin Contraindication - Intolerance Zocor [Simvastatin] Statin Contraindication - Intolerance Past Medical History: Diagnosis Date Ankylosing spondylitis (HCC) Arthritis degenerative Back pain BPH (benign prostatic hypertrophy) without obstruction Chronic back pain Dermatitis RT upper chest DVT (deep venous thrombosis) (HCC) upper extremity, under arm Fracture, clavicle right, nonunion Hematoma of neck Hyperlipidemia Hypertension benign essential Iron deficiency anemia Kidney stones L5 vertebral fracture (HCC) Leg pain, bilateral Osteoporosis steroid induced S/P lumbar fusion S/P TURP Spondyloarthropathy Steroid-induced diabetes (HCC) patient denies Ulcerative proctitis (HCC) chronic Past Surgical History: Procedure Laterality Date BACK SURGERY CARPAL TUNNEL Left 05/06/2016 Procedure: LEFT CARPAL TUNNEL RELEASE, LEFT ULNAR TUNNEL RELEASE;; Surgeon: Herberth Woody MD CATARACT EXTRACTION Bilateral COLONOSCOPY couple of them CYSTOSCOPY WITH STENT Left 2003 ureteroscopy, lithotripsy and left stent, ESWL DEBRIDEMENT PROCEDURE 02/17/2012 LEFT FOOT I&D W/FOREIGN BODY EXCISION; Surgeon: Luis Monge DPM DEBRIDEMENT PROCEDURE 04/26/2012 RIGHT SHOULDER INCISION &DRAINAGE ; Surgeon: Benji Ellison MD DEBRIDEMENT PROCEDURE Right 12/06/2012 Procedure: RIGHT SHOULDER IRRIGATION & DEBRIDEMENT,;; Surgeon: Benji Ellison MD EXTRACORPOREAL SHOCK WAVE LITHOTRIPSY Right -2005 with nephrostomy tube placement EXTRACORPOREAL SHOCK WAVE LITHOTRIPSY Right , FUSION LUMBAR THORACIC SPINE N/A 10/18/2012 Procedure: L1-L2, L3-L4 TRANSFORAMINAL LUMBAR INTERBODY FUSION W/ T12-L5 PEDICLE SCREW FIXATION;; Surgeon: Brennan Cash MD FUSION LUMBAR THORACIC SPINE N/A 03/11/2013 Procedure: OPEN L5 TO ILEUM STABILIZATION ;; Surgeon: Brennan Cash MD FUSION LUMBAR THORACIC SPINE N/A 09/17/2014 Procedure: T6-T12 THORACIC FUSION WITH O ARM;; Surgeon: Brennan Cash MD IR NEPHROSTOMY TUBE PLACEMENT RIGHT Right 2003 x 2 nephrostolithotomy MASS EXCISION Left 09/30/2013 Procedure: LEFT AXILLARY MASS EXCISION;; Surgeon: Rogelio Chan MD SHOULDER REPAIR 04/19/2012 RIGHT CLAVICLE PARTIAL RESECTION ; Surgeon: Benji Ellison MD SHOULDER REPAIR Right 01/11/2013 Procedure: RIGHT SHOULDER ANTIBIOTIC BEADS REMOVAL;; Surgeon: Benji Ellison MD SPINE SURGERY 10/19 lumbar fusion SURGERY 1970 spine and tailbone fusion SURGERY 09/2010 bilateral primary repair of achilles tendon with flexor tendons with flexor hallucis longus tendon transfer and tenodesis of the flexor digitorum longus SURGERY 1975 kidney stones TENDON REPAIR TRANSFER Left 08/01/2017 Procedure: I;; Surgeon: Herberth Woody MD TOTAL KNEE BILATERAL Bilateral 07/20/2020 Procedure: BILATERAL TOTAL KNEE REPLACEMENT;; Surgeon: Jeff Sutherland MD TURP LASER ASSISTED 2005 WRIST FUSION Left 08/01/2017 Procedure: LEFT WRIST FUSION W/ PROXIMAL ROW CARPECTOMY AND AUTOLOGOUS BONE GRAFT; RECONSTRUCTION OF LEFT HAND EXTENSOR TENDONS USING GRACILIS TENDON ALLOGRAFT;; Surgeon: Herberth Woody MD YAG CAPSULOTOMY - OS - LEFT EYE Left 10/25/2018 Dr Shamar Monge Family History Problem Relation Age of Onset Other Mother brain tumor Arthritis Mother Not otherwise listed - Cancer Mother Heart Attack Father Arthritis Father Heart Disease Father Hypertension Father Cataracts Neg Hx Glaucoma Neg Hx Macular Degeneration Neg Hx Anesth Problems Neg Hx Social History Socioeconomic History Marital status: Spouse name: Not on file Number of children: Not on file Years of education: Not on file Highest education level: Not on file Tobacco Use Smoking status: Never Smoker Smokeless tobacco: Never Used Substance and Sexual Activity Alcohol use: No Alcohol/week: 0.0 standard drinks Drug use: No Social Determinants of Health Physical Activity: Days of Exercise per Week: Minutes of Exercise per Session: Stress: Feeling of Stress : Social Connections: Frequency of Communication with Friends and Family: Frequency of Social Gatherings with Friends and Family: Attends Congregational Services: Active Member of Clubs or Organizations: Attends Club or Organization Meetings: Marital Status: Intimate Partner Violence: Fear of Current or Ex-Partner: Emotionally Abused: Physically Abused: Sexually Abused: Financial Resource Strain: Difficulty of Paying Living Expenses: Food Insecurity: Worried About Running Out of Food in the Last Year: Ran Out of Food in the Last Year: Transportation Needs: Lack of Transportation (Medical): Lack of Transportation (Non-Medical): Alcohol Use: Not At Risk Frequency of Alcohol Consumption: Never Average Number of Drinks: Not on file Frequency of Binge Drinking: Never Review of Systems Review of Systems Respiratory: Negative for apnea. Cardiovascular: Negative for chest pain. Gastrointestinal: Negative for abdominal pain. Physical / Results Current Vital Signs Temp: 97.3 F (36.3 C) BP: 159/96 Weight: 82.3 kg (181 lb 7 oz) SpO2: 97 % Resp: 14 Pulse: 79 Current BMI (>50 = increased risk): 29.72 O2 Device: NC - no humidity O2 Flow Rate (L/min): 2 l/min Pain Ratin Physical Exam Constitutional: General: He is not in acute distress. HENT: Head: Normocephalic. Eyes: Pupils: Pupils are equal, round, and reactive to light. Cardiovascular: Rate and Rhythm: Normal rate and regular rhythm. Pulmonary: Effort: Pulmonary effort is normal. Breath sounds: Normal breath sounds. Abdominal: General: There is distension. Palpations: Abdomen is soft. Hernia: A hernia is present. Musculoskeletal: Comments: Bilateral césar wraps in place Neurological: General: No focal deficit present. Mental Status: He is alert. Psychiatric: Mood and Affect: Mood normal. Labs: Results for OTONIEL MONCADA ( ) as of 07/21/2020 11:18 Ref. Range 07/21/2020 05:31 WBC Latest Ref Range: 4.0 - 11.0 K/uL 15.5 (H) RBC Latest Ref Range: 4.40 - 5.80 M/uL 3.54 (L) Hemoglobin Latest Ref Range: 13.5 - 17.5 g/dL 11.8 (L) Hematocrit Latest Ref Range: 40.0 - 50.0 % 36.4 (L) MCV Latest Ref Range: 80.0 - 98.0 fL 102.8 (H) MCH Latest Ref Range: 25.5 - 34.0 pg 33.3 MCHC Latest Ref Range: 31.5 - 36.5 g/dL 32.4 RDW-CV Latest Ref Range: 11.5 - 15.5 % 13.8 RDW-SD Latest Ref Range: 35.5 - 50.0 fl 50.2 (H) Platelet Count Latest Ref Range: 140 - 400 K/uL 266 MPV Latest Ref Range: 8.5 - 12.0 fL 10.0 Seg Neut Absolute Latest Ref Range: 1.8 - 8.0 K/uL 12.3 (H) Lymphocytes Absolute Latest Ref Range: 0.8 - 4.1 K/uL 2.0 Monocytes Absolute Latest Ref Range: 0.0 - 1.0 K/uL 1.2 (H) Eosinophils Absolute Latest Ref Range: 0.0 - 0.7 K/uL 0.0 Basophil Absolute Latest Ref Range: 0.0 - 0.2 K/uL 0.0 Neutrophils Percent Latest Units: % 78.8 Neutrophils Abs. (Segs and Bands) Latest Units: /uL 12,300 Lymphocytes Percent Latest Units: % 12.6 Monocytes Percent Latest Units: % 8.0 Eosinophils Percent Latest Units: % 0.0 Basophil Percent Latest Units: % 0.1 Glucose Latest Ref Range: 70 - 100 mg/dL 145 (H) Sodium Latest Ref Range: 135 - 145 meq/L 135 Potassium Latest Ref Range: 3.5 - 5.3 meq/L 3.8 Chloride Latest Ref Range: 99 - 110 meq/L 103 CO2 Latest Ref Range: 20 - 29 meq/L 24 Anion Gap with K Latest Ref Range: 6 - 20 meq/L 12 BUN Latest Ref Range: 6 - 22 mg/dL 15 Creatinine Latest Ref Range: 0.80 - 1.30 mg/dL 0.79 (L) BUN/Creatinine Ratio Latest Ref Range: 10.0 - 25.0 19.0 Calcium Latest Ref Range: 8.5 - 10.5 mg/dL 8.2 (L) Corrected Calcium Latest Ref Range: 8.5 - 10.5 mg/dL 8.8 Phosphorus Latest Ref Range: 2.5 - 4.5 mg/dL 2.6 Albumin Latest Ref Range: 3.5 - 5.0 g/dL 3.3 (L) eGFR Latest Ref Range: >=60 mL/min/1.73m2 >90 eGFR Non- Latest Ref Range: >=60 mL/min/1.73m2 >90 Davide Medrano DO Orthopedic Surgery PGY1 Associated attestation - Ricardo Singh MD - 07/22/2020 12:42 PM CDT I discussed the patient with the resident and personally interviewed and examined the patient. I verified in the medical record all resident documentation/findings, including history, physical exam, and medical decision making, and I agree with the resident's documentation.Jojo cD PA - 07/21/2020 7:50 AM CDT Ortho Progress Note Otoniel Moncada is a 75yr male here for 1 Day Post-Op, Procedure(s): BILATERAL TOTAL KNEE REPLACEMENT. Patient of BP 129/75 | Pulse 67 | Temp 98.3 F (36.8 C) | Resp 16 | Ht 1.664 m (5' 5.51") | Wt 82.3 kg (181 lb 7 oz) | SpO2 95% | BMI 29.72 kg/m Maximum Temperatures (last 24 hours) Temperature Maximum Max Temp 98.7 F (37.1 C) { Lab Results Component Value Date HEMOGLOBIN 11.8 (L) 07/21/2020 Patient doing ok, complains of mild pain. The patient denies nausea. The wound has No drainage. Compartments soft and non-tender. Distal NV intact. Impression: Procedure(s): BILATERAL TOTAL KNEE REPLACEMENT Past Medical History: Diagnosis Date Ankylosing spondylitis (HCC) Arthritis degenerative Back pain BPH (benign prostatic hypertrophy) without obstruction Chronic back pain Dermatitis RT upper chest DVT (deep venous thrombosis) (HCC) upper extremity, under arm Fracture, clavicle right, nonunion Hematoma of neck Hyperlipidemia Hypertension benign essential Iron deficiency anemia Kidney stones L5 vertebral fracture (HCC) Leg pain, bilateral Osteoporosis steroid induced S/P lumbar fusion S/P TURP Spondyloarthropathy Steroid-induced diabetes (HCC) patient denies Ulcerative proctitis (HCC) chronic Plan: Will continue with Physical and Occupational Therapy today. Continue with Care Plan. [facility] bed at discharge. Jeff Wells MD - 07/20/2020 6:45 AM CDT H&P Updates and Indication for Care/Procedure: I have examined the patient, reviewed the H&P and no changes to the patient's condition. I have explained the risks, including risk of COVID-19 exposure, benefits, indications, and alternatives for the procedure, answered questions and obtained the appropriate consent to proceed. Varinder Grossman RPh - 07/20/2020 6:06 AM CDT 07/20/2020 6:06 AM CDT - Patient was seen by pharmacy. HOME MEDICATIONS have been reconciled and updated to match the patient's home usage. Medications added: None Medications removed: None Medications changed: None Prior to Admission Medications Prescriptions Last Dose Informant Patient Reported? Taking? benazepril (LOTENSIN) 10 mg tablet 07/19/2020 at 0600 No Yes Sig: Take 1 tablet (10 mg) by mouth 1 time per day calcium carbonate 600 mg tablet 07/10/2020 Self Yes Yes Sig: Take 1,200 mg by mouth 1 time per day. denosumab (PROLIA) 60 MG/ML subcutaneous solution 03/09/2020 No Yes Sig: Inject 1 mL (60 mg) subcutaneously Every 6 months indomethacin cr (INDOCIN CR) 75 MG capsule 07/13/2020 No Yes Sig: TAKE 1 CAPSULE BY MOUTH TWICE A DAY WITH MEALS Patient taking differently: Take 75 mg by mouth 2 times a day with meals TAKE 1 CAPSULE BY MOUTH TWICE A DAY WITH MEALS magnesium oxide 500 MG TABS tablet 07/10/2020 Self Yes Yes Sig: Take 500 mg by mouth 1 time per day. predniSONE 10 mg tablet 07/20/2020 at am No Yes Sig: TAKE 1 TABLET BY MOUTH ONCE DAILY EVERY MORNING WITH FOOD Patient taking differently: Take 10 mg by mouth 1 time per day TAKE 1 TABLET BY MOUTH ONCE DAILY EVERY MORNING WITH FOOD predniSONE 2.5 mg tablet 07/20/2020 at am No Yes Sig: Take 1 tablet (2.5 mg) by mouth 1 time per day Take in addition to the 10 mg dose to equal 12.5mg vitamin D3, cholecalciferol, 1000 UNITS tablet 07/10/2020 Self Yes Yes Sig: Take 2,000 Units by mouth 1 time per day. 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 Closed fracture of clavicle DVT of upper extremity (deep vein thrombosis) (HCC) S/P TURP Arthritis of knee, left S/P lumbar fusion Hyperlipemia Hypertension Chronic back pain Steroid-induced diabetes (HCC) Senile osteoporosis Iron deficiency anemia Obesity Sleep disorder Hypertriglyceridemia Spondyloarthropathy Bilateral knee pain Chronic pain syndrome #POD1 bilateral total knee arthroplasty - Pain control, scheudled tylenol, tramadol, and prn's - Bowel reg - Dose of prednisone tonight, then resume regular dosing - IS #Ankylosing spondylitis (HCC)- Continue scheduled NSAID #Ulcerative (chronic) proctitis (HCC)- Extra dose of steroid today and then resume home dosing Chronic medical conditions: #Hyperlipemia- Stable #Hypertension- Resume home benazapril #Chronic back pain- Stable #Prediabetes- last A1c 6.0. Stable #BPH- Monitor UOP #Obesity Code status: Full DVT ppx: Eliquis per Ortho, SCD's Diet: ADAT Disposition: PT/OT today. Reason for Consult Post operative medical management HPI / History / ROS Patient is a 75 yo male with a PMH of UC on chronic prednisone, ankylosing spondylitis, OA, HTN, HLD, UE dvt secondary to trauma of right clavicle 10 years ago, not on anticoags. He was admitted on 07/20 for bilateral TKA due to pain and OA. History Patient Active Problem List Diagnosis Ankylosing spondylitis (HCC) Ulcerative (chronic) proctitis (HCC) Calculus of kidney Localized osteoarthritis of hand Right arm pain Steroid-induced osteoporosis Closed fracture of clavicle DVT of upper extremity (deep vein thrombosis) (HCC) Nonunion of clavicle fracture S/P TURP Arthritis of knee, left S/P lumbar fusion Hyperlipemia Hypertension Chronic back pain Steroid-induced diabetes (HCC) L5 vertebral fracture (HCC) Senile osteoporosis Iron deficiency anemia Obesity Sleep disorder Post-traumatic arthritis of left wrist Hypertriglyceridemia Thoracic spine fracture (HCC) Spondyloarthropathy Encounter for long-term (current) use of other high-risk medications Bilateral knee pain Primary osteoarthritis involving multiple joints Chronic pain syndrome Ulnar neuropathy at elbow, right Rupture of extensor tendon of left hand Cubital tunnel syndrome, right Current Facility-Administered Medications Medication Dose Route Frequency [START ON 07/21/2020] apixaban (ELIQUIS) tablet 2.5 mg 2.5 mg Oral 2 times a day sodium chloride 0.9% flush (adult) 10 mL 10 mL IV 2 times a day and prn sodium chloride 0.9% IV solution IV Continuous acetaminophen (TYLENOL) tablet 650 mg 650 mg Oral Every 6 hours traMADol (ULTRAM) tablet 50 mg 50 mg Oral Every 6 hours oxyCODONE (OXY-IR) tablet 5-10 mg 5-10 mg Oral Every 4 hours prn fentaNYL 100 mcg/2 mL preservative free injection solution 50 mcg 50 mcg IV Every 30 minutes prn ketorolac (TORADOL) intravenous injection 15 mg 15 mg IV Every 6 hours prn [START ON 07/21/2020] celecoxib (celeBREX) capsule 200 mg 200 mg Oral 2 times a day nalOXone (NARCAN) injection solution (vial) 0.4 mg 0.4 mg Injection Every 2 minutes prn nalOXone (NARCAN) injection solution (vial) 0.2 mg 0.2 mg Injection Every 2 minutes prn senna-docusate sodium (SENOKOT-S;PERICOLACE) tablet 1 tablet 1 tablet Oral 2 times a day [START ON 07/21/2020] polyethylene glycol (MIRALAX) packet 1 packet 1 packet Oral Daily magnesium hydroxide (MILK OF MAGNESIA) oral suspension 30 mL 30 mL Oral 2 times a day prn bisacodyl (DULCOLAX) enteric coated tablet 5 mg 5 mg Oral 2 times a day prn bisacodyl (DULCOLAX) suppository 10 mg 10 mg Rectal 1 time a day prn ondansetron (ZOFRAN) injection solution 4 mg 4 mg IV Every 4 hours prn benzocaine-menthol (CEPACOL w/ BENZOCAINE) lozenge 1 lozenge 1 lozenge Mouth/Throat Every 4 hours prn ceFAZolin (ANCEF) 2000 mg/20 mL sterile water IV syringe 2,000 mg IV Every 8 hours [START ON 07/21/2020] benazepril (LOTENSIN) tablet 10 mg 10 mg Oral daily [START ON 07/21/2020] magnesium oxide tablet 500 mg 500 mg Oral daily predniSONE tablet 12.5 mg 12.5 mg Oral Daily Allergies Allergen Reactions Levaquin Rash and Unknown/Not Verified Ruptured tendons per patient. Statins [Hmg-Coa-R Inhibitors] Statin Contraindication - Intolerance Zocor [Simvastatin] Statin Contraindication - Intolerance Past Medical History: Diagnosis Date Ankylosing spondylitis (HCC) Arthritis degenerative Back pain BPH (benign prostatic hypertrophy) without obstruction Chronic back pain Dermatitis RT upper chest DVT (deep venous thrombosis) (HCC) upper extremity, under arm Fracture, clavicle right, nonunion Hematoma of neck Hyperlipidemia Hypertension benign essential Iron deficiency anemia Kidney stones L5 vertebral fracture ([facility]) Leg pain, bilateral Osteoporosis steroid induced S/P lumbar fusion S/P TURP 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 Past Surgical History: Procedure Laterality Date BACK SURGERY CARPAL TUNNEL Left 05/06/2016 Procedure: LEFT CARPAL TUNNEL RELEASE, LEFT ULNAR TUNNEL RELEASE;; Surgeon: Herberth Woody MD CATARACT EXTRACTION Bilateral COLONOSCOPY couple of them CYSTOSCOPY WITH STENT Left 2003 ureteroscopy, lithotripsy and left stent, ESWL DEBRIDEMENT PROCEDURE 02/17/2012 LEFT FOOT I&D W/FOREIGN BODY EXCISION; Surgeon: Luis Monge DPM DEBRIDEMENT PROCEDURE 04/26/2012 RIGHT SHOULDER INCISION &DRAINAGE ; Surgeon: Benji Ellison MD DEBRIDEMENT PROCEDURE Right 12/06/2012 Procedure: RIGHT SHOULDER IRRIGATION & DEBRIDEMENT,;; Surgeon: Benji Ellison MD EXTRACORPOREAL SHOCK WAVE LITHOTRIPSY Right with nephrostomy tube placement EXTRACORPOREAL SHOCK WAVE LITHOTRIPSY Right , FUSION LUMBAR THORACIC SPINE N/A 10/18/2012 Procedure: L1-L2, L3-L4 TRANSFORAMINAL LUMBAR INTERBODY FUSION W/ T12-L5 PEDICLE SCREW FIXATION;; Surgeon: Brennan Cash MD FUSION LUMBAR THORACIC SPINE N/A 03/11/2013 Procedure: OPEN L5 TO ILEUM STABILIZATION ;; Surgeon: Brennan Cash MD FUSION LUMBAR THORACIC SPINE N/A 09/17/2014 Procedure: T6-T12 THORACIC FUSION WITH O ARM;; Surgeon: Brennan Cash MD IR NEPHROSTOMY TUBE PLACEMENT RIGHT Right 2004 x 2 nephrostolithotomy MASS EXCISION Left 09/30/2013 Procedure: LEFT AXILLARY MASS EXCISION;; Surgeon: Rogelio Chan MD SHOULDER REPAIR 04/19/2012 RIGHT CLAVICLE PARTIAL RESECTION ; Surgeon: Benji Ellison MD SHOULDER REPAIR Right 01/11/2013 Procedure: RIGHT SHOULDER ANTIBIOTIC BEADS REMOVAL;; Surgeon: Benji Ellison MD SPINE SURGERY 10/19 lumbar fusion SURGERY 1969 spine and tailbone fusion SURGERY 09/2010 bilateral primary repair of achilles tendon with flexor tendons with flexor hallucis longus tendon transfer and tenodesis of the flexor digitorum longus SURGERY 1975 kidney stones TENDON REPAIR TRANSFER Left 08/01/2017 Procedure: I;; Surgeon: Herberth Woody MD TURP LASER ASSISTED 2004 WRIST FUSION Left 08/01/2017 Procedure: LEFT WRIST FUSION W/ PROXIMAL ROW CARPECTOMY AND AUTOLOGOUS BONE GRAFT; RECONSTRUCTION OF LEFT HAND EXTENSOR TENDONS USING GRACILIS TENDON ALLOGRAFT;; Surgeon: Herberth Woody MD YAG CAPSULOTOMY - OS - LEFT EYE Left 10/25/2018 Dr Shamar Monge Family History Problem Relation Age of Onset Other Mother brain tumor Arthritis Mother Not otherwise listed - Cancer Mother Heart Attack Father Arthritis Father Heart Disease Father Hypertension Father Cataracts Neg Hx Glaucoma Neg Hx Macular Degeneration Neg Hx Anesth Problems Neg Hx Social History Socioeconomic History Marital status: Spouse name: Not on file Number of children: Not on file Years of education: Not on file Highest education level: Not on file Tobacco Use Smoking status: Never Smoker Smokeless tobacco: Never Used Substance and Sexual Activity Alcohol use: No Alcohol/week: 0.0 standard drinks Drug use: No Social Determinants of Health Physical Activity: Days of Exercise per Week: Minutes of Exercise per Session: Stress: Feeling of Stress : Social Connections: Frequency of Communication with Friends and Family: Frequency of Social Gatherings with Friends and Family: Attends Congregational Services: Active Member of Clubs or Organizations: Attends Club or Organization Meetings: Marital Status: Intimate Partner Violence: Fear of Current or Ex-Partner: Emotionally Abused: Physically Abused: Sexually Abused: Financial Resource Strain: Difficulty of Paying Living Expenses: Food Insecurity: Worried About Running Out of Food in the Last Year: Ran Out of Food in the Last Year: Transportation Needs: Lack of Transportation (Medical): Lack of Transportation (Non-Medical): Alcohol Use: Not At Risk Frequency of Alcohol Consumption: Never Average Number of Drinks: Not on file Frequency of Binge Drinking: Never Review of Systems Review of Systems Respiratory: Negative for apnea. Cardiovascular: Negative for chest pain. Gastrointestinal: Negative for abdominal pain. Physical / Results Current Vital Signs Temp: 97.3 F (36.3 C) BP: 159/96 Weight: 82.3 kg (181 lb 7 oz) SpO2: 97 % Resp: 14 Pulse: 79 Current BMI (>50 = increased risk): 29.72 O2 Device: NC - no humidity O2 Flow Rate (L/min): 2 l/min Pain Ratin Physical Exam Constitutional: General: He is not in acute distress. HENT: Head: Normocephalic. Eyes: Pupils: Pupils are equal, round, and reactive to light. Cardiovascular: Rate and Rhythm: Normal rate and regular rhythm. Pulmonary: Effort: Pulmonary effort is normal. Breath sounds: Normal breath sounds. Abdominal: General: There is distension. Palpations: Abdomen is soft. Hernia: A hernia is present. Musculoskeletal: Comments: Bilateral césar wraps in place Neurological: General: No focal deficit present. Mental Status: He is alert. Psychiatric: Mood and Affect: Mood normal. Davide Medrano DO Orthopedic Surgery PGY1 Associated attestation - Ricardo Singh MD - 07/20/2020 1:28 PM CDT I discussed the patient with the resident and personally interviewed and examined the patient. I verified in the medical record all resident documentation/findings, including history, physical exam, and medical decision making, and I agree with the resident's documentation.documented in this encounter Miscellaneous Notes Clinical Team - Jazmyn Negron RN - 07/23/2020 12:26 PM CDT Patient discharged to [place] swing bed this morning via private vehicle. IV removed; catheter intact and no complications. Dressing changed to bilateral knees per AVS order. Discharge instructionsand summary sent with patient and daughter with instructions to give to nurses at [facility]. Glasses and other personal items sent home with pt. Report given to SHAWN Gaona, at [place]; all questions answered and call back number given if any questions arise. hysical Therapy - Yuliana Minaya, PT - 07/23/2020 8:42 AM CDT Physical Therapy Orthopedic TKA Treatment Note Date: 07/22/2020 Assessment/Recommendations: Patient tolerated exercise and ambulation well. He is going sit to standand stand to sit on raised bed with fww and contact to stand by assist. Patient walked 250 ft with fww and contact guard to standby assist with a steady, emerging reciprocating gait pattern and recliner follow. Patient lives alone and would benefit from continues therapies prior to discharge home independently. Subjective: Alert and Oriented. Objective: Gait belt donned for all out of bed activities. Lab Results Component Value Date HEMOGLOBIN 11.8 (L) 07/21/2020 Supine to/from sit: Patient goes supine to sit and sit to supine with stand by assist. Sit to/from stand: Patient is going sit to stand and stand to sit on raised bed with fww and contact to stand by assist. Sitting Balance: Good. Standing Balance: Good. Gait: Patient walked 250 ft x 2 with fww and contact guard to standby assist with a steady, emerging reciprocating gait pattern and recliner follow. Upon completion of treatment, patient returned to bed with cold packs applied to anterior-posterior aspect of bilateral knees. Stairs: Up/down 3 four inch and 2 six inch stairs with 1 handrail and body turned toward rail, contact guard assist. ROM: AAROM right knee 4-100 degrees, left knee 0-95 degrees Exercises: Completes seated heelslides (polishing the floor), LAQ independent, knee flexion and extension stretching both seated and supine. Patient reports completing other supine exercises independently priorto PT session. Pain: (0-10 scale) At rest: 3 With Activity: 6 Equipment: Patient indicates all needed assistive devices obtained prior to hospitalization or will obtain on their own. Assessment: Patient demonstrates safety with mobility, applying precautions as indicated. Goals: Acute PT goals met. Plan is swing bed in [place] for continued therapies prior to discharge home independently. Plan: Patient will be discharged to swing bed in [place] for continued therapies. . Time Treatment Occurred: 804 Gait: 15 minutes Therapeutic Exercise: 15 minutes Therapeutic Activity: 0 minutes TOTAL TIMED CODES: 30 minutes TREATMENT TOTAL TIME: 30 minutes are Planning - Gissell Garcia RN - 07/23/2020 3:59 AM CDT Problem: ACUTE PAIN Goal: CLIENT SATISFACTION: PAIN MANAGEMENT Description: DEFINITION: Extent of positive perception of nursing care to relieve pain. 1=Not at all satisfied, 2=Somewhat satisfied, 3=Moderately satisfied, 4=Very satisfied, 5=Completely satisfied. Outcome: NOC Rating 5 Flowsheets (Taken 07/23/2020 861) Initial Score: 4 Target Score: 5 Plan of care reviewed with: Patient Patient specific goal for the day: Pain will be well controlled with PO pain medications. Patient specific goal for the stay: Patient will rate pain less than 5/10 with oral analgesics Achieve goal for stay: By discharge Note: Pain was well controlled with scheduled Tylenol and Tramadol. Ice pack over both knees. CMS intact. Dressing CDI. Still on césar wraps. Problem: IMPAIRED PHYSICAL MOBILITY Goal: MOBILITY Description: DEFINITION: Ability to move purposefully in own environment independently with or without assistive device. 1=Severely compromised / Total assistance: Performs less than 25% of activity; 2=Substantially compromised / Maximal assistance: Performs 25-49% of activity; 3=Moderately compromised / Moderate assistance: Performs 50-74% of activity; 4=Mildly compromised / Modified independence: Needs assistive device, supervision, minimal contact,or safety is a concern; 5=Not compromised / Complete independence. Outcome: NOC Rating 4 Flowsheets (Taken 07/23/2020 0358) Initial Score: 4 Target Score: 4 Plan of care reviewed with: Patient Patient specific goal for the day: Patient will transfer safely with staff this shift Patient specific goal for the stay: Meet criteria for safe discharge Achieve goal for stay: By discharge Note: Patient is up with walker, SBA and GB. Tolerated bed mobility and ambulated well. For discharge to swing bed in noon. PT / OT on board. linical Team - Gissell Garcia RN - 07/23/2020 1:36 AM CDT Patient is AOx4, VSS, on RA. Rated pain as 3/10 dull aches on bilateral knee and was given scheduledTylenol. César wraps on BLE, noted to have swelling. Ice pack on. Dressing - CDI, CMS intact. Re education regarding knee precautions done. Fall precautions in place, instructed to call for help if needsto get up / assistance. Still waiting for BM, plan to have more BM meds if unable to move his bowel before 7am. Plan to be discharge to swing bed [place] afternoon. Will continue to monitor him. ase Josseline Cook (Teena), SHAWN - 07/22/2020 2:47 PM CDT CASE MANAGEMENT / SOCIAL SERVICE FINAL TRANSITION PLAN TRANSITION DATE: 07/23/20 TRANSITION TIME: 1200 INTENDED PAYER SOURCE FOR AGENCY: Medicare TRANSITION DESTINATION: [facility] Swing Bed [address] [facility],[id number] MD please complete orders per discharge to SNF protocol TELEPHONE SERVICE ADVISER please fax orders/meds/transfer forms per discharge to SNF protocol Nursing please call for nurse to nurse report Nurse # [phone] DOES ACCEPTING FACILITY REQUIRE COVID TESTING BEFORE DISCHARGE: Needs negative test 24-48 hr prior to admit TRANSITION TRANSPORTATION: Family Car TRANSPORTATION PAYMENT: Not applicable TRANSITION CHOICES OFFERED: Home Health: Bath Aid, Home Safety Evaluation, Nurse, Occupational Therapy and Physical Therapy Home: Family/Friend Support Half-Way Facility Swing Bed DOES THE PATIENT HAVE A PRIMARY CARE PHYSICIAN? Yes Brenna Monge DO PATIENT / SUBSTITUTE DECISION MAKER GOAL UPON TRANSITION: First Choice: Swing Bed PATIENT CHOICE EDUCATION: Not applicable MEDICARE 3 IP MIDNIGHT CRITERIA MET: Yes: admit 07/20 RESOURCE(S) PROVIDED: NA DOES PATIENT HAVE CLOTHING TO WEAR AT DISCHARGE? Yes ANTICIPATED MODE OF TRANSPORT TO AND FROM FOLLOW UP APPOINTMENTS: Family Car VERIFIED CORRECT PHARMACY IS ENTERED FOR DISCHARGE: Yes - Pharmacy: Hospital has own pharmacy METHOD OF PRESCRIBING MEDICATIONS: Reconcile medications as Patient Transfer ("65 button") TRANSITION ROUNDING COMPLETED WITH THE FOLLOWING: dumper operatoragile developer Pharmacist Physical Therapist COMMENTS / PATIENT AND FAMILY RESPONSE TO PLAN: Patient is feeling ready for discharge tomorrow. Assistive devices will be supplied by [facility] Specialist appointments are made and will be reviewed with patient and family prior to discharge. SPECIAL TRANSITION DAY INSTRUCTIONS TO NURSE / MD: [facility] Swing Bed [address] [id number] please complete orders per discharge to SNF protocol TELEPHONE SERVICE ADVISER please fax orders/meds/transfer forms per discharge to SNF protocol Nursing please call for nurse to nurse report Nurse # [phone] CURRENT READMISSION RISK SCORE / HANDOFF: Predictive Risk Score Risk of Unplanned Readmission: 10 Handoff given: N/A SIGNED: Teena Duval RN (Dorea) [facility] [id number] [email or web address] Physical Therapy - Yuliana Minaya PT - 07/22/2020 2:45 PM CDT Physical Therapy Orthopedic TKA Treatment Note Date: 07/22/2020 Assessment/Recommendations: Patient tolerated exercise and ambulation well. He is going sit to standand stand to sit on raised bed with fww and contact to stand by assist. Patient walked 250 ft with fww and contact guard assist with a steady, emerging reciprocating gait pattern and recliner follow. Patient lives alone and would benefit from continues therapies prior to discharge home independently. Subjective: Alert and Oriented. Objective: Gait belt donned for all out of bed activities. Lab Results Component Value Date HEMOGLOBIN 11.8 (L) 07/21/2020 Supine to/from sit: Patient goes supine to sit and sit to supine with stand by assist. Sit to/from stand: Patient is going sit to stand and stand to sit on raised bed with fww and contact to stand by assist. Sitting Balance: Good. Standing Balance: Good. Gait: Patient walked 350 ft with fww and contact guard assist with a steady, emerging reciprocatinggait pattern and recliner follow. Upon completion of treatment, patient returned to bed with cold packs applied to anterior-posterior aspect of bilateral knees. Stairs: Completed in AM session ROM: AAROM right knee 5-108 degrees, left knee 2-98 degrees Exercises: Completes 10 reps of exercise on surgical LE which includes ankle pumps, quad sets and hamstring sets with good quality strength, and supine heel slides, SAQ, and SLR with no assistance. Knee flexion and extension stretching. Pain: (0-10 scale) At rest: 3 With Activity: 7 Education: Reviewed precautions, exercise progression, transfer techniques, gait and mobility progression. Assessment: Patient tolerated treatment well. Anticipate that patient will be ready to go to [facility] when medically ready. Plan: Continue with plan of care. Time Treatment Occurred: 1310 Gait: 15 minutes Therapeutic Exercise: 15 minutes Therapeutic Activity: 0 minutes TOTAL TIMED CODES: 30 minutes TREATMENT TOTAL TIME: 30 minutes hysical Therapy - Yuliana Minaya PT - 07/22/2020 12:30 PM CDT Physical Therapy Orthopedic TKA Treatment Note Date: 07/22/2020 Assessment/Recommendations: Patient tolerated exercise and ambulation well. He is going sit to standand stand to sit on raised bed with fww and contact to stand by assist. Patient walked 250 ft with fww and contact guard assist with a steady, emerging reciprocating gait pattern and recliner follow. Patient lives alone and would benefit from continues therapies prior to discharge home independently. Subjective: Alert and Oriented. Objective: Gait belt donned for all out of bed activities. Lab Results Component Value Date HEMOGLOBIN 11.8 (L) 07/21/2020 Supine to/from sit: Patient goes supine to sit and sit to supine with stand by assist. Sit to/from stand: Patient is going sit to stand and stand to sit on raised bed with fww and contact to stand by assist. Sitting Balance: Good. Standing Balance: Good. Gait: Patient walked 250 ft with fww and contact guard assist with a steady, emerging reciprocatinggait pattern and recliner follow. Upon completion of treatment, patient returned to bed with cold packs applied to anterior-posterior aspect of bilateral knees. Stairs: Up/down 3 four inch and 2 six inch stairs with right handrail and body turned slightly toward rail, minimal/contact guard assist. ROM: Will measure in PM session Exercises: Completes 10 reps of exercise on surgical LE which includes ankle pumps, quad sets and hamstring sets with good quality strength, and supine heel slides, SAQ, and SLR with no assistance. Knee flexion and extension stretching. Pain: (0-10 scale) At rest: 3 With Activity: 8 Education: Reviewed precautions, exercise progression, transfer techniques, gait and mobility progression. Assessment: Patient tolerated treatment well. Anticipate that patient will be ready to go to [facility] when medically ready. Plan: Continue with plan of care. Time Treatment Occurred: 1035 Gait: 15 minutes Therapeutic Exercise: 20 minutes Therapeutic Activity: 0 minutes TOTAL TIMED CODES: 35 minutes TREATMENT TOTAL TIME: 35 minutes Occupational Therapy - Tish Monge OTR/Aleksandra - 07/22/2020 12:05 PM CDT Occupational Therapy Orthopedic Progress Note Treatment Today's Treatment Self care/home management: 30 minutes Start Time: 1115 Total for time-based codes: 30 minutes Total treatment time: 30 minutes Impression/Plan: See daily M-F for ADL/transfer training/education, assess adpative equipment needs. Recommend: Short term SNF Pain: Pain at rest: 1/10 Pain during activity: 5/10 Location: B knees Treatment provided: Pt provided with education to don stiffer/more sore LE first/doff last for LB dressing. Pt instructed in use of computer software engineer and sock aide to complete LB dressing tasks. Pt completed LB dressing from EOB with SBA after education provided. Patient was brought to the OT department via w/c. Demonstration and education provided and all transfers were set up to simulate pt's home setting. Patient completed toilet transfer using toilet riser w/arms with CGA using FWW, needing extra time/effort for sit<>stand from the toilet riser. Patient then completed tub/shower transfer using grabbar and shower stool with CGA-Min A for balance. Intermittently throughout the session, patient needing Min for sit<>stand from lower chair using FWW. At this time, patient would not be safe to return home alone. Recommend for patient to continue with skilled therapies at a low intensity settingupon medical stability. Adaptive Equipment Recommended: Sock aide Plan to obtain adaptive equipment: To further assess. Assessment: Patient showing a decrease in ADL/transfer performance and will benefit from continued OT. Goals by discharge: Patient will be SBA with bed, chair, toilet, car transfers with adaptive equipment as needed. Patient will be SBA with tub/shower transfer with adaptive equipment as needed. Patient will be SBA with self care skills with adaptive equipment as needed. Patient will be SBA for kitchen/home safety. Pt progressing towards goals Therapist pager #: [phone] are Planning - Carlo Nicole RN - 07/22/2020 10:18 AM CDT Problem: ACUTE PAIN Goal: CLIENT SATISFACTION: PAIN MANAGEMENT Description: DEFINITION: Extent of positive perception of nursing care to relieve pain. 1=Not at all satisfied, 2=Somewhat satisfied, 3=Moderately satisfied, 4=Very satisfied, 5=Completely satisfied. Outcome: NOC Rating 4 Flowsheets (Taken 07/22/2020 1015) Plan of care reviewed with: Patient Patient specific goal for the day: Goal established with RN at beginning of shift to maintain pain levels less than 5/10 utilizing scheduled and PRN PO analgesics, ice packs, elevation, rest, and repositioning Patient Progress: Pain increases with activities, ranging from 2-7/10. Scheduled MAPAP and Tramadol administered, along with 1x dose of PO Oxycodone for severe pain following PT. Pt states that currentanalgesic regimen is very effective at pain control. Using ice packs and Polar Care with elevation of knees when resting. Problem: IMPAIRED SKIN INTEGRITY Goal: WOUND HEALING: PRIMARY INTENTION Description: DEFINITION: Extent of regeneration of cells and tissues following intentional closure. 1=None, 2=Limited, 3=Moderate, 4=Substantial, 5=Extensive (rate granulation, scar formation, decreased wound size). Outcome: NOC Rating 3 Flowsheets (Taken 07/22/2020 1015) Plan of care reviewed with: Patient Patient specific goal for the day: Bilateral knee dressings to remain CDI with no signs or symptoms of infection Patient Progress: Dressings to bilateral knees remain CDI and are covered with césar wraps. No signs or symptoms of infection noted or expressed. 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 Nutrition screening revealed no difficulty eating or significant unintentional weight loss prior to admission. Past medical history noted and is not currently placing pt at increased nutrition risk. Height: 166.4 cm (5' 5.51") Weight: 82.3 kg (181 lb 7 oz) BMI: Body mass index is 29.72 kg/m. Nutrition (From admission, onward) Start Ordered 07/20/20 1700 Supplement [facility]; Boost Breeze BID BID Comments: Give supplement cold with medications twice a day. The supplement is an intervention for identified nutrition risk factors. * Do not give if patient is NPO (unless the orders specify NPO with supplement) or if medication should not be given with food. Question Answer Comment Location [facility] Dietary Supplement Boost Breeze 07/20/20 1328 07/20/20 1400 Diet - Regular Now Question: Standard Diets Answer: Regular 07/20/20 1400 07/20/20 1145 ADVANCE DIET TOLERATED ONCE 07/20/20 1144 Plan to monitor po intake adequacy during admission. If provider feels pt has nutritional concerns,please send Inpatient Dietitian consult with indication for referral. ANABELLA Mendez Pager #[phone] Vick Montgomery RN - 07/22/2020 7:49 AM CDT Problem: ACUTE PAIN Goal: CLIENT SATISFACTION: PAIN MANAGEMENT Description: DEFINITION: Extent of positive perception of nursing care to relieve pain. 1=Not at all satisfied, 2=Somewhat satisfied, 3=Moderately satisfied, 4=Very satisfied, 5=Completely satisfied. Outcome: NOC Rating 3 Flowsheets (Taken 07/22/2020 7386) Patient Progress: Patient has reported pain this shift a 2 at rest, and 7/10 with movement. scheduled tylenol and prn 10 mg of oxycodone administered per order. Ice applied to bilateral knees, effective relief with interventions. Stuart Funes - Jazmyn Negron RN - 07/21/2020 7:52 PM CDT Problem: ACUTE PAIN Goal: CLIENT SATISFACTION: PAIN MANAGEMENT Description: DEFINITION: Extent of positive perception of nursing care to relieve pain. 1=Not at all satisfied, 2=Somewhat satisfied, 3=Moderately satisfied, 4=Very satisfied, 5=Completely satisfied. Flowsheets (Taken 07/21/2020 1950) Initial Score: 3 Target Score: 4 Plan of care reviewed with: Patient Patient specific goal for the day: Patient's pain will be controlled well enough to complete therapies and ADLs this shift Patient specific goal for the stay: Patient will rate pain less than 5/10 with oral analgesics Achieve goal for stay: By discharge Patient Progress: Patient has reported pain this shift a 2 at rest, and 7/10 with movement. scheduled tylenol and prn 10 mg of oxycodone administered per order. Ice applied to bilateral knees, effective relief with interventions. Problem: IMPAIRED PHYSICAL MOBILITY Goal: MOBILITY Description: DEFINITION: Ability to move purposefully in own environment independently with or without assistive device. 1=Severely compromised / Total assistance: Performs less than 25% of activity; 2=Substantially compromised / Maximal assistance: Performs 25-49% of activity; 3=Moderately compromised / Moderate assistance: Performs 50-74% of activity; 4=Mildly compromised / Modified independence: Needs assistive device, supervision, minimal contact,or safety is a concern; 5=Not compromised / Complete independence. Flowsheets (Taken 07/21/2020 1950) Initial Score: 3 Target Score: 4 Plan of care reviewed with: Patient Patient specific goal for the day: Patient will transfer safely with staff this shift Patient specific goal for the stay: Meet criteria for safe discharge Achieve goal for stay: By discharge Patient Progress: Patient is up with assist of one, FWW, and gait belt. tolerates well. hopeful to discharge to [facility] at the end of the week. hysical Therapy - Radha Biswas SPT - 07/21/2020 2:01 PM CDT Physical Therapy Orthopedic TKA Treatment Note Date: 07/21/2020 Assessment/Recommendations: Patient tolerated exercise and ambulation well. He is going sit to standand stand to sit on raised bed with fww and contact to stand by assist. Patient walked 350 ft with fww and contact guard assist with a steady, emerging reciprocating gait pattern and recliner follow. Patient would like to discharge to [facility] when medically ready. Subjective: Alert and Oriented. Objective: Gait belt donned for all out of bed activities. Lab Results Component Value Date HEMOGLOBIN 11.8 (L) 07/21/2020 Supine to/from sit: Patient goes supine to sit and sit to supine with stand by assist. Sit to/from stand: Patient is going sit to stand and stand to sit on raised bed with fww and contact to stand by assist. Sitting Balance: Good. Standing Balance: Good. Gait: Patient walked 350 ft with fww and contact guard assist with a steady, emerging reciprocatinggait pattern and recliner follow. Upon completion of treatment, patient returned to bed with cold packs applied to anterior-posterior aspect of bilateral knees. Stairs: N/t. ROM: N/t. Exercises: Completes 10 reps of exercise on surgical LE which includes ankle pumps, quad sets and hamstring sets with good quality strength, and supine heel slides, SAQ, and SLR with no assistance. Pain: (0-10 scale) At rest: 0 With Activity: 5 Comments: Patient mentioned worst pain he felt so far occurred with walking but as he walked more the pain decreased. Education: Reviewed precautions, exercise progression, transfer techniques, gait and mobility progression. Assessment: Patient tolerated treatment well. Anticipate that patient will be ready to go to [facility] when medically ready. Plan: Continue with plan of care. Time Treatment Occurred: 1:02 Gait: 13 minutes Therapeutic Exercise: 15 minutes Therapeutic Activity: 0 minutes TOTAL TIMED CODES: 28 minutes TREATMENT TOTAL TIME: 28 minutes Associated attestation - Yuliana Minaya PT - 07/21/2020 2:27 PM CDT This practitioner supervised and/or directed the student in service delivery. Documentation was edited and reviewed by this practitioner prior to signature application. Case Mgmt - Josseline Duval), RN - 07/21/2020 1:56 PM CDT CASE MANAGEMENT / SOCIAL SERVICE TRANSITION PLAN - PROGRESS NOTE PLAN: Awaiting Medical Doctor Recommendations for Transition Will Continue to Follow for Support and Progression Towards Final Transition Plan Case Management will continue to collaborate with the patient, family, and care team to ensure a safe, timely, and effective transition plan BARRIERS TO TRANSITION: Awaiting Therapy Recommendations Discharge Needs to be Determined Medical observation of lab work and vital signs Potential SWB DOES ACCEPTING FACILITY REQUIRE COVID TESTING BEFORE DISCHARGE: Unsure at this time COMMENTS / PATIENT AND FAMILY RESPONSE TO PLAN: Patient's chart reviewed. Patient reviewed in transition rounds today with PAAzeem, Charge Nurse, Bedside Nurse, and RN/SR. MEDIA MANAGER Security Screener. IS PATIENT'S ADMISSION ASSOCIATED WITH TIA, ISCHEMIC, OR HEMORRHAGIC STROKE?: No PATIENT / SUBSTITUTE DECISION MAKER GOAL UPON TRANSITION: First Choice: Swing Bed ANTICIPATED NEEDS UPON TRANSITION: Swing Bed RESOURCE(S) PROVIDED: NA ANTICIPATED MODE OF TRANSPORT UPON TRANSITION: Family Car ANTICIPATED MODE OF TRANSPORT TO AND FROM FOLLOW UP APPOINTMENTS: Family Car VERIFIED CORRECT PHARMACY IS ENTERED FOR DISCHARGE: No TRANSITION ROUNDING COMPLETED WITH THE FOLLOWING: dumper operatoragile developer Pharmacist Physical Therapist SIGNED: Teena Duval RN ([place]) [facility] [id number] [email or web address] Occupational Therapy - Kevyn Stone, OTR/L - 07/21/2020 12:44 PM CDT Occupational Therapy Orthopedic Evaluation Date: 07/21/20 Start Time: 1130 Total for time-based codes: 30 minutes Total treatment time: 35 minutes Admitting Diagnosis: S/p BTKA PMH: Past Medical History: Diagnosis Date Ankylosing spondylitis ([facility]) Arthritis degenerative Back pain BPH (benign prostatic hypertrophy) without obstruction Chronic back pain Dermatitis RT upper chest DVT (deep venous thrombosis) ([facility]) upper extremity, under arm Fracture, clavicle right, nonunion Hematoma of neck Hyperlipidemia Hypertension benign essential Iron deficiency anemia Kidney stones L5 vertebral fracture ([facility]) Leg pain, bilateral Osteoporosis steroid induced S/P lumbar fusion S/P TURP Spondyloarthropathy Steroid-induced diabetes ([facility]) patient denies 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 Shower chair, tub bar Prior Level of Functioning: Independent Adaptive Equipment Available: Shower chair, riser w/ grab bars, tub rail, computer software engineer ADLs TBA, Pt educated on LE dressing technique will benefit from continued education/practice. TRANSFERS Chair: standby assistance with walker, Min A at end of session when fatigued, slightly dizzy. Bed: CGA up to higher bed Car: Practiced both standard car in which pt able to complete w/ CGA, simulated higher truck transfer stepping up w/ LLE onto step stool w/ Min A. Total Knee precautions were reviewed with the patient. Patient demonstrates understanding of precautions. UE FUNCTION: WFL COGNITION: Alert and orientated Pain Level at Rest: 6/10 Pain Level with Activity: 6/10 PATIENT/FAMILY EDUCATION: TKA precautions Transfers Self Care Role of OT Family present during evaluation: none Adaptive Equipment Recommended: TBA Plan to obtain adaptive equipment: To further assess. Assessment: Patient showing a decrease in ADL/transfer performance and will benefit from continued OT. Plan: See daily M-F for ADL/transfer training/education, assess adpative equipment needs. Recommend: Short term SNF Goals by discharge: Patient will be SBA with bed, chair, toilet, car transfers with adaptive equipment as needed. Patient will be SBA with tub/shower transfer with adaptive equipment as needed. Patient will be SBA with self care skills with adaptive equipment as needed. Patient will be SBA for kitchen/home safety. Occupational Therapy Orthopedic Progress Note Treatment Today's Treatment Evaluation Self care/home management: 30 minutes Treatment provided: Evaluation; self cares; transfers with attn to safety; AE education/demonstration; pt wore a gait belt throughout transfers this session to increase safety; education provided on TKA precautions with pt verbal understanding and compliance observed during treatment; education and de monstration provided prior to each transfer performed. See note above for transfer details. After sit<>stand when coming out of car pt reported feeling lightheaded, sat on EOB, water given. Pt started to feel a bit better. Simulated higher truck transfer w/ running board, pt again became a little light headed and requested to sit down. Pt required Min A for last Sit<>stand d/t fatigue, able to get into bed w/ SBA. Gait belt donned for all OOB activity and pt left laying in bed with call light and tray table within reach. Pt would benefit from ST SNF/TCU prior to return home alone for continued therapies. OT will continue to follow acutely. Evaluation Complexity PMH/Comorbidities that affect Occupational Performance: See PMH above Occupational Profile/Medical and Therapy History: LOW - Brief history relating to presenting problem Patient Assessment: LOW - 1-3 performance deficits relating to physical, cognitive, psychosocial limitations/restrictions Clinical Decision Making: LOW - Low complexity, limited amount of treatment options, no assessment modification, no comorbidities Evaluation Complexity: Low Therapist pager #: [phone] I certify the need for these services furnished under this plan of treatment while under my care. [phone] Physical Therapy - Radha Biswas SPT - 07/21/2020 11:39 AM CDT Physical Therapy Orthopedic Bilateral TKA Treatment Note Date: 07/21/2020 Assessment/Recommendations: Patient tolerated ambulation and exercise well. Patient goes sit to stand from recliner and stand to sit in recliner with fww and stand by assist. Patient ambulated 175 ft with fww and contact assist with a semi-reciprocating gait pattern and recliner follow. Patient's planupon discharge is to go to [facility] when therapy goals met and medically stable. Subjective: Alert and Oriented. Objective: Gait belt donned for all out of bed activities. Lab Results Component Value Date HEMOGLOBIN 11.8 (L) 07/21/2020 Supine to/from sit: N/t. Sit to/from stand: Patient goes sit to stand from recliner and stand to sit in recliner with fww and stand by assist. Sitting Balance: Good. Standing Balance: Good with fww. Gait: Patient ambulated 175 ft with fww and contact assist with a semi- reciprocating gait pattern and recliner follow. Upon completion of treatment, patient returned to recliner with cold packs applied to anterior-posterior aspects of bilateral knees. Stairs: N/t. ROM: AROM - Right knee - 2 - 88 degrees; Left Knee - 0 - 85 degrees Exercises: Completes 10 reps of exercise on surgical LE which includes ankle pumps, quad sets and hamstring sets with good quality strength, and supine heel slides, SAQ, and SLR with no assistance. Pain: (0-10 scale) At rest: None With Activity: 5 Education: Reviewed precautions, exercise progression, transfer techniques, gait and mobility progression. Assessment: Patient tolerated treatment well. Anticipate that patient will be ready to go to [facility] when therapy goals met and medically stable. Plan: Continue with plan of care. Time Treatment Occurred: 10:40 am Gait: 15 minutes Therapeutic Exercise: 20 minutes Therapeutic Activity: 0 minutes TOTAL TIMED CODES: 35 minutes TREATMENT TOTAL TIME: 35 minutes Associated attestation - Yuliana Minaya PT - 07/21/2020 12:59 PM CDT This practitioner supervised and/or directed the student in service delivery. Documentation was edited and reviewed by this practitioner prior to signature application. Care Planning - Carlo Nicole RN - 07/21/2020 9:53 AM CDT Problem: ACUTE PAIN Goal: CLIENT SATISFACTION: PAIN MANAGEMENT Description: DEFINITION: Extent of positive perception of nursing care to relieve pain. 1=Not at all satisfied, 2=Somewhat satisfied, 3=Moderately satisfied, 4=Very satisfied, 5=Completely satisfied. Outcome: NOC Rating 3 Flowsheets (Taken 07/21/2020 0951) Plan of care reviewed with: Patient Patient specific goal for the day: Patient established goal with RN at start of shift to maintain his pain levels less than 5/10 Patient Progress: Rating pain 3-5/10 in bilateral knees, describing as a dull ache. Scheduled MAPAP and Tramadol administered, with PRN Oxycodone available when needed Problem: IMPAIRED SKIN INTEGRITY Goal: WOUND HEALING: PRIMARY INTENTION Description: DEFINITION: Extent of regeneration of cells and tissues following intentional closure. 1=None, 2=Limited, 3=Moderate, 4=Substantial, 5=Extensive (rate granulation, scar formation, decreased wound size). Outcome: NOC Rating 2 Flowsheets (Taken 07/21/2020 0951) Plan of care reviewed with: Patient Patient specific goal for the day: Bilateral knee dressings to remain CDI with no signs or symptoms of infection Patient Progress: Dressings to bilateral knees remain CDI and are covered with césar wraps. No signs or symptoms of infection noted or expressed. Ice packs/Polar Care utilized for scant edema bilaterallyto knees are Planning - Vick Monroy RN - 07/21/2020 7:55 AM CDT Problem: ACUTE PAIN Goal: CLIENT SATISFACTION: PAIN MANAGEMENT Description: DEFINITION: Extent of positive perception of nursing care to relieve pain. 1=Not at all satisfied, 2=Somewhat satisfied, 3=Moderately satisfied, 4=Very satisfied, 5=Completely satisfied. Outcome: NOC Rating 3 Flowsheets (Taken 07/21/2020 3724) Patient Progress: rates pain minimal. see mar Problem: IMPAIRED SKIN INTEGRITY Goal: WOUND HEALING: PRIMARY INTENTION Description: DEFINITION: Extent of regeneration of cells and tissues following intentional closure. 1=None, 2=Limited, 3=Moderate, 4=Substantial, 5=Extensive (rate granulation, scar formation, decreased wound size). Flowsheets (Taken 07/21/2020 3533) Patient Progress: Dressings to bilateral knees remain CDI and are covered with césar wraps. No signs or symptoms of infection noted or expressed. Respiratory Therapy - Delphine Robertson RRT - 07/20/2020 3:15 PM CDT Incentive Spirometry Acknowledged order for Incentive Spirometry. Patient was instructed on use and goals of IS. Patient's inspiratory capacity is 2250 mL on IS. The IS goal is 750 mL. Patient is able to meet goal and RT will discontinue following. Care Planning - Carlo Nicole RN - 07/20/2020 1:59 PM CDT Problem: ACUTE PAIN Goal: CLIENT SATISFACTION: PAIN MANAGEMENT Description: DEFINITION: Extent of positive perception of nursing care to relieve pain. 1=Not at all satisfied, 2=Somewhat satisfied, 3=Moderately satisfied, 4=Very satisfied, 5=Completely satisfied. Outcome: NOC Rating 3 Flowsheets (Taken 07/20/2020 4636) Plan of care reviewed with: Patient Son/Daughter Patient specific goal for the day: Patient established goal with RN on admission to maintain his pain levels less than 5/10 Patient specific goal for the stay: Pain less than 5/10 utilizing PRN PO analgesics, ice, elevation,rest, and relaxation techniques Achieve goal for stay: By discharge Patient Progress: Rating pain 3/10 since admission in bilateral knees, with only scheduled MAPAP andTramadol administered. Polar Care and elevation utilized per MD order Problem: IMPAIRED SKIN INTEGRITY Goal: WOUND HEALING: PRIMARY INTENTION Description: DEFINITION: Extent of regeneration of cells and tissues following intentional closure. 1=None, 2=Limited, 3=Moderate, 4=Substantial, 5=Extensive (rate granulation, scar formation, decreased wound size). Outcome: NOC Rating 2 Flowsheets (Taken 07/20/2020 1353) Initial Score: 2 Target Score: 3 Plan of care reviewed with: Patient Son/Daughter Patient specific goal for the day: Bilateral knee dressings to remain CDI with no signs or symptoms of infection Patient specific goal for the stay: Incisions to bilateral knees well approximated with tissues showing signs of healing started and dressings CDI Achieve goal for stay: By discharge Patient Progress: Dressings to bilateral knees remain CDI and are covered with césar wraps. No signs or symptoms of infection noted or expressed. hysical Therapy - Candelaria Beard PT - 07/20/2020 12:44 PM CDT Physical Therapy Orthopedic Evaluation Date: 07/20/2020 Assessment/Recommendations: Patient presents with impaired functional mobility post surgical procedure and will benefit with continued PT. Patient has the potential to return home within 1-2 days vs may require post acute inpatient recovery at low intensity setting. [facility] bed. Ambulated 120 feet using front wheeled walker contact guard assist of 2 and chair follow. He was lightheaded initially when up, but improved with time. Family/success coach present for PT session: daughter (see flowsheet) Referring Physician: Jeff Sutherland MD Diagnosis/Surgical Procedure: Bilateral total knee arthroplasty on 07/20/20 Significant PMH: Past Medical History: Diagnosis Date Ankylosing spondylitis ([facility]) Arthritis degenerative Back pain BPH (benign prostatic hypertrophy) without obstruction Chronic back pain Dermatitis RT upper chest DVT (deep venous thrombosis) ([facility]) upper extremity, under arm Fracture, clavicle right, nonunion Hematoma of neck Hyperlipidemia Hypertension benign essential Iron deficiency anemia Kidney stones L5 vertebral fracture ([facility]) Leg pain, bilateral Osteoporosis steroid induced S/P lumbar fusion S/P TURP 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 Past Surgical History: Procedure Laterality Date BACK SURGERY CARPAL TUNNEL Left 05/06/2016 Procedure: LEFT CARPAL TUNNEL RELEASE, LEFT ULNAR TUNNEL RELEASE;; Surgeon: Herberth Woody MD CATARACT EXTRACTION Bilateral COLONOSCOPY couple of them CYSTOSCOPY WITH STENT Left 2003 ureteroscopy, lithotripsy and left stent, ESWL DEBRIDEMENT PROCEDURE 02/17/2012 LEFT FOOT I&D W/FOREIGN BODY EXCISION; Surgeon: Luis Monge DPM DEBRIDEMENT PROCEDURE 04/26/2012 RIGHT SHOULDER INCISION &DRAINAGE ; Surgeon: Benji Ellison MD DEBRIDEMENT PROCEDURE Right 12/06/2012 Procedure: RIGHT SHOULDER IRRIGATION & DEBRIDEMENT,;; Surgeon: Benji Ellison MD EXTRACORPOREAL SHOCK WAVE LITHOTRIPSY Right -2005 with nephrostomy tube placement EXTRACORPOREAL SHOCK WAVE LITHOTRIPSY Right , FUSION LUMBAR THORACIC SPINE N/A 10/18/2012 Procedure: L1-L2, L3-L4 TRANSFORAMINAL LUMBAR INTERBODY FUSION W/ T12-L5 PEDICLE SCREW FIXATION;; Surgeon: Brennan Cash MD FUSION LUMBAR THORACIC SPINE N/A 03/11/2013 Procedure: OPEN L5 TO ILEUM STABILIZATION ;; Surgeon: Brennan Cash MD FUSION LUMBAR THORACIC SPINE N/A 09/17/2014 Procedure: T6-T12 THORACIC FUSION WITH O ARM;; Surgeon: Brennan Cash MD IR NEPHROSTOMY TUBE PLACEMENT RIGHT Right 2004 x 2 nephrostolithotomy MASS EXCISION Left 09/30/2013 Procedure: LEFT AXILLARY MASS EXCISION;; Surgeon: Rogelio Chan MD SHOULDER REPAIR 04/19/2012 RIGHT CLAVICLE PARTIAL RESECTION ; Surgeon: Benji Ellison MD SHOULDER REPAIR Right 01/11/2013 Procedure: RIGHT SHOULDER ANTIBIOTIC BEADS REMOVAL;; Surgeon: Benji Ellison MD SPINE SURGERY 10/19 lumbar fusion SURGERY 1970 spine and tailbone fusion SURGERY 09/2010 bilateral primary repair of achilles tendon with flexor tendons with flexor hallucis longus tendon transfer and tenodesis of the flexor digitorum longus SURGERY 1975 kidney stones TENDON REPAIR TRANSFER Left 08/01/2017 Procedure: I;; Surgeon: Herberth Woody MD TURP LASER ASSISTED 2004 WRIST FUSION Left 08/01/2017 Procedure: LEFT WRIST FUSION W/ PROXIMAL ROW CARPECTOMY AND AUTOLOGOUS BONE GRAFT; RECONSTRUCTION OF LEFT HAND EXTENSOR TENDONS USING GRACILIS TENDON ALLOGRAFT;; Surgeon: Herberth Woody MD YAG CAPSULOTOMY - OS - LEFT EYE Left 10/25/2018 Dr Shamar Monge Physician Orders: Evaluation and treatment Weight Bearing Status: As tolerated Precautions: TKA precautions (no twisting, no kneeling) Lab Results Component Value Date HEMOGLOBIN 14.4 07/13/2020 Status Prior to Hospitalization/Surgical Procedure: Current Living Environment: lives alone in 1 story house with basement. Washer and dryer in basement. Daughter from [place] will come on Monday for a couple weeks. Stairs to Enter Home: 2 Railin Ambulation Status: Independent using 1 hiking stick Equipment Owned: hiking stick, front wheeled walker, shower stool, toilet riser, grab bar on side oftub, will be getting a lift chair Patient Goals: [facility]. Current Status: Cognition: Alert and oriented ROM: R knee 3-112, L knee 0-101 degrees Transfers: Supine to/from Sit: Supine to sit stand by assist. Sit to/from Stand: Contact guard assist of 2 up to front wheeled walker with cues. Patient lightheaded initially, but improved with time. Balance: Sitting: good Standing: fair with front wheeled walker Gait: Ambulated 120 feet using front wheeled walker contact guard assist of 2 and chair follow. PTpushing IV pole. Patient has a history of R clavicle fracture and so his R UE hangs lower than his L. The height of his front wheeled walker was set just right for his L hand, but it was too tall for his R. Exercises: Bilateral active ankle pumps. On surgical LE, 10 reps of quad sets and hamstring sets of good quality, ROM supine heel slides, SAQ and SLR with no assist. Pt following along with written handout and then was issued it. Pain Level: (0-10 scale) At rest: 4 With Activity: 7 Education: Patient and family were educated on precautions, exercise progression, transfer techniques, gait andmobility progression today through explanation and handout. They accepted teaching, verbalized understanding, and demonstrated understanding. Other: Patient up in chair at end of session. Treatment: Time Treatment Occurred: 13:50 Evaluation: X Gait: 10 minutes Exercise: 15 minutes TOTAL TIMED CODES: 25 minutes TREATMENT TOTAL TIME: 35 minutes Plan: Follow daily for gait traning, therapeutic exercise, therapeutic activity, and education. Goals: By hospital discharge or within 1-2 days. Patient involved in developing/progressing goals and treatment plan. Supine to sit with no assist. Sit to stand with stand by assist. Ambulate 200 feet on level surfaces with stand by assist and appropriate assistive device. Up/down 2 steps with contact guard assist and appropriate assistive device. Follow precautions during functional mobility. Independent or able to instruct caregiver in home exercise program. Certification dates: 07/20/2020 to: 08/03/20 CERTIFICATION I certify that the services as described in the above note are furnished while the patient is under my care; a plan for furnishing these services has been established and will be periodically reviewed;the services are required for the patient; and the services are subject to established guidelines. Referring Provider: Jeff Sutherland MD ase Josseline Cook (Teena) RN - 07/20/2020 11:45 AM CDT CASE MANAGEMENT / SOCIAL SERVICE TRANSITION PLAN - INITIAL ASSESSMENT TRANSITION PLAN: goal is transition to the [facility] in [place] when stable. BARRIERS TO TRANSITION: Awaiting Therapy Recommendations / progress towards goals for safety Medical barriers: pain control COMMENTS / PATIENT AND FAMILY RESPONSE TO PLAN: Discussed with interdisciplinary team. Met with patient and daughter at the patient's bedside. Introduced Case Management and role in patient care. daughter leda [phone] Patient lives alone in [place], [place]. Patient was independent with ADLs prior to this admissions.Patient's goal upon discharge is [facility] with family support. Education provided in regards to anticipated plan of care. Encouraged patient to voice any concerns. Patient voiced understanding. Questions answered. Would like tr trasnition to [facility]. Will continue to follow providers and therapy recommendations for safe discharge planning. Will continue to reassess any discharge needs. ADMISSION DX: Primary osteoarthritis of both knees [M17.0] BILATERAL TOTAL KNEE REPLACEMENT PATIENT STATUS: Ambulatory Surgery RELEASE OF INFORMATION: Yes -- verbal for: discharge planning SOURCES OF INFORMATION (See demographics for contact information): Medical Doctor Medical Record Nurse: Bedside Nurse Practitioner/Physician's Wind Plant Manager Occupational Therapy Patient Physical Therapy CURRENT LIVING SITUATION / LEVEL OF ASSISTANCE: Lives alone Lives in a single home with 2 stairs to enter. Has no stairs to bedroom/bathroom. COMMUNITY SERVICES: None HEALTHCARE DIRECTIVE: No POWER OF HISTORICAL RECORDS ADMINISTRATOR: None FINANCIAL CONCERNS: No Concerns PRIMARY CARE PHYSICIAN: Yes Brenna Monge DO [phone] [facility] [address] : No IS PATIENT'S ADMISSION ASSOCIATED WITH TIA, ISCHEMIC, OR HEMORRHAGIC STROKE?: No LANGUAGE / COMMUNICATION BARRIERS: No PATIENT / SUBSTITUTE DECISION MAKER GOAL UPON TRANSITION: First Choice: [facility] at [facility] ANTICIPATED NEEDS, TRANSITION CHOICES OFFERED: [facility] REFERRAL(S) MADE: No RESOURCE(S) PROVIDED: [facility] at [facility] DOES PATIENT HAVE CLOTHING TO WEAR AT DISCHARGE? Yes ANTICIPATED MODE OF TRANSPORT UPON DISCHARGE: Family Car - daughter to drive VERIFIED CORRECT PHARMACY IS ENTERED FOR DISCHARGE: Yes - Pharmacy: [facility] [place] [facility] [place] [address] [id number] CURRENT READMISSION RISK SCORE Predictive Risk Score Risk of Unplanned Readmission: 5.6 Please refer to readmission risk assessment flowsheet for further details. SIGNED: Teena Duval RN ([place]) [facility] [address] [email or web address] Clinical Team - Carlo Nicole RN - 07/20/2020 11:45 AM CDT Patient arrived to room # 469 at 1123 from PACU. Report received from PACU nurse. Oriented patientto room, call light system, ordering food and diet advancements based on GI tolerance to fluid and food intake following surgery. Reviewed [facility] Stay at [place] admit folder: CARE Rounds, DVT prevention, pain control, IV fluids, anticipated discharge date, and activity goals, including asking for assistance before getting out of bed or chair. Patient stable and resting comfortably with family at bedside. See graphics for VS. Skin assessment completed with SHAWN Mathews. Upon skin assessment, including pressure points, findings include: Reddened areas to arms patient states from excisions at clinic for biopsies Plan/Intervention: monitor surgical site ostOp Progress Note - Jeff Sutherland MD - 07/20/2020 9:19 AM CDT Immediate Post-Operative / Post Procedure Progress Note Att. Phys: Jeff Sutherland MD Pt. Type: Ambulatory Surgery Operative Date: 07/20/2020 Surgeon: Surgeon(s) and Role: * Jeff Sutherland MD - Primary Wind Plant Manager: Building Construction Inspector : Zakiya Chamorro RN; Lata Lynn RN Scrub Person : Chantell Ibrahim, MOBILE MARKETING SPECIALIST; Chante Cazares, ; Forrest Blanco, MOBILE MARKETING SPECIALIST Museum Security Chief: Jojo Dc PA The skilled assistance of my surgical clinical reviewer, Jojo LEAL was necessary because he participated in assistance with the procedure. Pre-Operative Diagnosis: Pre-Op Diagnosis Codes: * Primary osteoarthritis of both knees [M17.0] non-applicable Post-Operative Diagnosis: Bilateral knee arthritis Anesthesia Type: general Operative Procedure: Procedure(s): BILATERAL TOTAL KNEE REPLACEMENT - Wound Class: Clean ID Type Source Tests Collected by Time A : bilateral knee bone et tissue Tissue Knee TISSUE EXAM Jeff Sutherland MD 07/20/2020 0642 Implant Name Type Inv. Item Serial No. Tax Audit Manager Lot No. LRB No. Used Action CMNT BONE SIMPLEX P STRY N 6191--010 BX10/EA1 - [id number] Tissue Synthetic CMNT BONE SIMPLEX P STRY N 6191-- BX10/EA1 [id number] Left 1 Implanted CMNT BONE SIMPLEX P STRY N 6191- BX10/EA1 - [id number] Tissue Synthetic CMNT BONE SIMPLEX P STRY N 6191--010 BX10/EA1 [id number] Right 1 Implanted KNEE FEM CR CMNT ATTUNE LFTSZ6 N 150 EA1 - [id number] Total Jt Knee KNEE FEM CR CMNT ATTUNE LFTSZ6 N 1504 EA1 [employer] [id number] Left 1 Implanted KNEE PTLA DOME CMNT ATTUNE 38 N 151 EA1 - [id number] Total Jt Knee KNEE PTLA DOME CMNT ATTUNE 38 N 151 EA1 [employer] [id number] Left 1 Implanted KNEE TIB BASE FB CMNT S+ SZ7 N 1506-70-007 EA1 - [id number] Total Jt Knee KNEE TIB BASE FB CMNT S+ SZ7 N 150670-007 EA1 [employer] [id number] Right 1 Implanted KNEE TIB INSRT CR ATTUNE SZ7 5 N 1516705 EA1 - [id number] Total Jt Knee KNEE TIB INSRT CR ATTUNESZ7 5 N 1516705 EA1 [employer] [id number] Right 1 Implanted KNEE FEM CR CMNT ATTUNE RT SZ7 N 150 EA1 - [id number] Total Jt Knee KNEE FEM CR CMNT ATTUNE RT SZ7 N 1504 EA1 [employer] [id number] Right 1 Implanted KNEE PTLA DOME CMNT ATTUNE 38 N 1518038 EA1 - [id number] Total Jt Knee KNEE PTLA DOME CMNT ATTUNE 38 N 1518038 EA1 [employer] [id number] Right 1 Implanted KNEE TIB BASE FB CMNT S+ SZ7 N 150670-007 EA1 - [id number] Total Jt Knee KNEE TIB BASE FB CMNT S+ SZ7 N 150670-007 EA1 [employer] [id number] Left 1 Implanted KNEE TIB INSRT CR ATTUNE SZ6 5 N 1516605 EA1 - [id number] Total Jt Knee KNEE TIB INSRT CR ATTUNESZ6 5 N 1516605 EA1 [employer] [id number] Left 1 Implanted Fluids Given: See Anesthesia Record Urine Output: See Anesthesia Record Estimated Blood Loss:10 mL Drains: none Findings: Bilateral knee arthritis Complications: none Postoperative Condition: stable Operative Note - Jeff Sutherland MD - 07/20/2020 1:00 AM CDT [facility] PATIENT NAME: OTONIEL MONCADA DATE OF SERVICE: 07/20/2020 LLOYD: [id number] DATE OF OPERATION: 07/20/2020. PREOPERATIVE DIAGNOSIS: Bilateral knee osteoarthritis. POSTOPERATIVE DIAGNOSIS: Bilateral knee osteoarthritis. PROCEDURE: Bilateral total knee arthroplasty. SURGEON: Jeff Sutherland MD. SUPPORT ARCHITECT: ELVIS Roldan, who served as the skilled assistant front desk manager during the operation assisting withpositioning the patient, holding instrumentation, and closure. It should be noted that no orthopedic resident was available. ANESTHESIA: Spinal. ESTIMATED BLOOD LOSS: Minimal. COMPLICATIONS: None. OPERATIVE SUMMARY: The patient was brought to the operating room and was given a good spinal anesthetic. He was in the supine position. Pressure points were appropriately padded. Both lower extremities were prepped and draped in the normal sterile, orthopedic fashion. We began with the right, which was elevated and exsanguinated using Esmarch. Tourniquet was brought up to 300 mmHg. Anterior incision was made, carried down to a medial arthrotomy where the patella was retracted laterally and the knee was flexed. He had a large effusion, which was nonpurulent. He had severe patellofemoral arthrosis with grooves and ridges in the patella and trochlear groove. Medial meniscus, lateral meniscus, and ACL were excised. Central drill hole was made in the distal femur. Using intramedullary guide, a 3-degree valgus cut was accomplished. This was sized to a #7 femoral component where we made our anterior, posterior, and anteroposterior chamfer cuts. Trial #7 femoral component was placed, which fit nicely, and lug holes were drilled. Our attention was brought to the proximal tibia where it was exposed and, using an external tibial plateau guide, made our tibial plateau cut. This was sized to a #7 tibial tray, and this with a 5-mm curved trial insert and #7 trial femoral component providedgood trial reduction, allowing full extension, near complete full flexion with good mediolateral stability. We then removed the trial components, made the appropriate punch cuts in the proximal tibia,and a freehand undersurface cut was made in the patella, sizing this to a 38-mm patella where a trial was placed and closely reapproximated the original height of the patella. Following this, then we removed the trial components. We thoroughly irrigated, lavaged, and dried the exposed bony surfaces.We mixed our polymethylmethacrylate and then injected 50 mL of the pain cocktail about the soft tissues of the knee for postoperative analgesia. We then sequentially cemented a size 7 tibial tray followed then by cementing of a size 7 femoral component followed then by the placement of a 5-mm curved tibial insert, which was snapped into position, followed then by the cementing of a 38-mm all-polyethylene patellar component, which was held with a patellar clamp. The knee was brought into full extension. Longitudinal compression was applied until the cement had thoroughly hardened, and excess cement was removed. Following this, then the clamp was removed. The patella was reduced and found to track centrally. The patient had full extension, near complete full flexion with good mediolateral stability. We then thoroughly and copiously irrigated our area of dissection. We then removed the clamp after the cement had thoroughly hardened. The patella was reduced and brought through range of mell on. He had full extension, near complete full flexion with good mediolateral stability. We then again thoroughly and copiously irrigated our area of dissection after using a dilute Betadine bath, which was used to soak the knee and soft tissues, which was then irrigated free with copious pulsatile lavage. The medial arthrotomy was closed with a combination of interrupted #1 Vicryl suture followed by running #2 Quill suture. Subcutaneous tissue was closed with 2-0 Vicryl, and the skin was closed with conor. A sterile dressing was applied followed by an César wrap, and the tourniquet was broughtdown. A similar procedure was performed for the left knee, which was elevated and exsanguinated using Esmarch. Tourniquet was brought up to 300 mmHg. An anterior incision was made, carried down to a medialarthrotomy where the patella was retracted laterally and the knee was flexed. It showed evidence of tricompartmental osteoarthritis in this knee with a significant effusion with grade 4 change. Medial meniscus, lateral meniscus, and ACL were excised with evidence of grade 4 change. Medial meniscus and lateral meniscus were excised. There was no ACL present. The PCL was present. Central drill hole was made in the distal femur. Using intramedullary guide, a 3-degree valgus cut was accomplished. This was sized to a #6 femoral component where we then made our anterior, posterior, and anteroposterior chamfer cuts. Trial #6 femoral component was placed, which fit nicely, and lug holes were drilled. Our attention was brought to the proximal tibia where it was exposed and, using an external tibial plateau guide, made our tibial plateau cut. This was sized to a #7 tibial tray, and this with a 5-mm curved trial insert and #6 trial femoral component provided good trial reduction, allowing full extension, near complete full flexion with good mediolateral stability. We then removed the trial com ponents, made the appropriate punch cuts in the proximal tibia, and a freehand undersurface cut was made of the patella, sizing this to a 38-mm patella where a trial was placed and closely reapproximated the original height of the patella. Following this, then we removed the trial components. We thoroughly irrigated, lavaged, and dried the exposed bony surfaces. We mixed our polymethylmethacrylate and injected 50 mL of the pain cocktail about the soft tissues of the knee for postoperative analgesia. We then sequentially cemented a size 7 tibial tray followed then by cementing of a size 6 femoralcomponent followed then by placement of a 5-mm curved tibial insert, which was snapped into position, followed then by the cementing of a 38-mm all-polyethylene patellar component, which was held with a patellar clamp. The knee was brought into full extension. Longitudinal compression was applied until the cement had thoroughly hardened, and excess cement was removed. Following this, then the clamp was removed. The patella was reduced and found to track centrally. The patient had full extension, near complete full flexion with good mediolateral stability. We then again thoroughly and copiously irrigated our area of dissection after using a dilute Betadine bath, which was used to soak the knee and soft tissues, which was then irrigated free with copious pulsatile lavage. The medial arthrotomy was closed with a combination of interrupted #1 Vicryl suture followed by running #2 Quill suture. Subcutaneous tissue was closed with 2-0 Vicryl, and the skin was closed with conor. Sterile dressing was applied followed by an César wrap, and the tourniquet was brought down. The patient was then awakened and taken to the recovery room, having tolerated the procedure well. Jeff Sutherland MD Receipt: [id number] Trans ID: [id number] MOBILE MARKETING SPECIALIST CST documented in this encounter Plan of Treatment Date Type Specialty Care Team Description 08/03/2020 Office Visit Orthopedics Jojo Dc PA [address] [place] [address] [place] [address] [phone] 08/17/2020 Office Visit Orthopedics Jeff Sutherland MD [address] [place] [address] [place] [address] [phone] 09/11/2020 Office Visit Rheumatology Bob Arreola PA-C [address] [place] [address] [phone] Name Type Priority Associated Diagnoses Date/Ti me TISSUE EXAM PATH Routine Primary osteoarthritis of mavis th 07/20/2020 6:42 AM CDT knees Name Type Priority Associated Diagnoses Order S chedule TISSUE EXAM PATH Routine Primary osteoarthritis of mavis th Release Upon Ordering for 1 knees Occurrences sta rting 07/20/2020, 1 c ompleted documented as of this encounter Implants Implanted Type Area Tax Audit Manager Device Shelf Model / Serial / Identifier Expiration Lot Date Allo Putty Dbx Mtf 10ml N 636367 Ea - [id number] Bone/T N/A: SPINE MUSCULOSKELETAL 06/22/2014 655315 / Implanted: Qty: 1 on 10/18/2012 by Brennan Valencia MD at [facility] issue/ LUMBAR [id number] / Allogr aft Allo Cncls Chips Mtf 30cc N 903523 Ea - [id number] Bone/T N/A: SPINE MUSCULOSKELETAL 05/31/2015 450351 / Implanted: Qty: 1 on 10/18/2012 by Brennan Valencia MD at [facility] issue/ LUMBAR [id number] / Allogr aft Putty Dbm Xemplifi Gm Gel 10cc N 8103.0110s Ea - [id number] Bone/ T N/A: [employer] 12/21/2015 8103.0110S / Implanted: Qty: 1 on 03/11/2013 by Brennan Valencia MD at [facility] issue/ LUMBAR / Allogr [id number] aft Allo Cncls Chips Mtf 30cc N 037544 Ea - [id number] Bone/T N/A: MUSCULOSKELETAL 09/02/2015 064453 / Implanted: Qty: 1 on 03/11/2013 by Brennan Valencia MD at [facility] issue/ LUMBAR [id number] / Allogr aft Allo Cncls Chips Mtf 30cc N 697071 Ea - [id number] Bone/T N/A: MUSCULOSKELETAL 08/31/2015 230647 / Implanted: Qty: 1 on 03/11/2013 by Brennan Valencia MD at [facility] issue/ LUMBAR [id number] / Allogr aft Allo Magnifuse Pl 1x20cm N [id number] Ea - [id number] Bone/T N/ A: SPINE MEDTRONIC 04/20/2016 [id number] / Implanted: Qty: 1 on 09/17/2014 by Brennan Valencia MD at [facility] issue/ THORACIC [id number] / Allogr aft Description:verbally ordered and verifie d by Dr. Cash Cage Cncrd Depu 5w6u18ca N Ea - [id number] Neurology N/A: SPINE [employer] / Implanted: Qty: 1 on 10/18/2012 by Brennan Valencia MD at [facility] LUMBAR / Cage Cncrd Depu 23s9g75cf N Ea - [id number] Neurology N/A: SPINE [employer] / Implanted: Qty: 1 on 10/18/2012 by Brennan Valencia MD at [facility] LUMBAR / Screw Pa 5.5mm Olkbbbml8m44ue N Ea - [id number] Neuro logy Bilateral: [employer] / Implanted: Qty: 4 on 10/18/2012 by Brennan Valencia MD at [facility] SPINE LUMBAR / Screw Pa 5.5mm Lllzxbrb2i43ct N Ea - [id number] Neuro logy N/A: SPINE [employer] / Implanted: Qty: 5 on 10/18/2012 by Brennan Valencia MD at [facility] LUMBAR / Screw Pa 5.5mm [id number] N Ea - [id number] Neuro logy N/A: SPINE [employer] / Implanted: Qty: 3 on 10/18/2012 by Brennan Valencia MD at [facility] LUMBAR / Screw Set Inner Depu Sgl N Ea - [id number] Neurology Bilateral: J[employer] / Implanted: Qty: 12 on 10/18/2012 by Brennan Boo MD at [facility] SPINE LUMBAR / Foreign St Ti Expd Depu 5.5a061fd N Ea - [id number] Neuro logy N/A: SPINE [employer] / Implanted: Qty: 1 on 10/18/2012 by Brennan Valencia MD at [facility] LUMBAR / Conn Expd Depu 6.35 20mm N Ea - [id number] Neurology N/A: SPINE [employer] / Implanted: Qty: 2 on 03/11/2013 by Brennan Valencia MD at [facility] LUMBAR / Screw Pa 5.2oxycqpnuli8c41ho N Ea - [id number] Neurol ogy N/A: SPINE [employer] / Implanted: Qty: 2 on 03/11/2013 by Brennan Valencia MD at [facility] LUMBAR / Screw Pa 5.5mm Sqlswvbl8p30jh N Ea - [id number] Neuro logy N/A: SPINE [employer] / Implanted: Qty: 2 on 03/11/2013 by Brennan Valencia MD at [facility] LUMBAR / Screw Set Inner Depu Sgl N Ea - [id number] Neurology N/A: SPINE [employer] / Implanted: Qty: 6 on 03/11/2013 by Brennan Valencia MD at [facility] LUMBAR / Screw Pa 5.5nssjtgotul6w36ki N Ea - [id number] Neurol ogy N/A: SPINE [employer] / Implanted: Qty: 4 on 09/17/2014 by Brennan Valencia MD at [facility] THORACIC 2016 / Screw Pa 5.5mm Kmhsaxas1f60du N Ea - [id number] Neuro logy N/A: SPINE [employer] / Implanted: Qty: 4 on 09/17/2014 by Brennan Valencia MD at [facility] THORACIC 2016 / Screw Pa 5.5mm Ncnmaabt7b40th N Ea - [id number] Neuro logy N/A: SPINE [employer] / Implanted: Qty: 1 on 09/17/2014 by Brennan Valencia MD at [facility] THORACIC 2015 / Conn Top Notch Depu 5.5x5.5mm N Ea - [id number] Neuro logy N/A: SPINE [employer] / Implanted: Qty: 4 on 09/17/2014 by Brennan Valencia MD at [facility] THORACIC 2015 / Foreign Z Expd Depu Ti 300mm N Ea - [id number] Neurology N/A: SPINE [employer] / Implanted: Qty: 1 on 09/17/2014 by Brennan Valencia MD at [facility] THORACIC 2015 / Foreign St Ti Expd Depu 5.4p632ko N Ea - [id number] Neuro logy N/A: SPINE [employer] / Implanted: Qty: 1 on 09/17/2014 by Brennan Valencia MD at [facility] THORACIC 2016 / Screw Set Inner Depu Sgl N Ea - [id number] Neurology N/A: SPINE [employer] / Implanted: Qty: 13 on 09/17/2014 by Brennan Boo MD at [facility] THORACIC 2016 / Conn Cross 5.5mm Ti Depu A3 N Ea - [id number] Neurolo gy N/A: SPINE [employer] / Implanted: Qty: 1 on 09/17/2014 by Brennan Valencia MD at [facility] THORACIC 2015 / Cmnt Bone Simplex P Stry N 61 Bx10/Ea1 - [id number] Tissue Synthetic Left: KNEE VIJAYA / Implanted: Qty: 1 on 07/20/2020 by Jeff Espana MD at [facility] 2021 / [id number] Cmnt Bone Simplex P Stry N 6191 Bx10/Ea1 - [id number] Tissue Synthetic Right: KNEE VIJAYA / Implanted: Qty: 1 on 07/20/2020 by Jeff Espana MD at [facility] 2021 / [id number] Knee Fem Cr Cmnt Attune Lftsz6 N 150 Ea1 - [id number] Total Jt Knee Left: KNEE J[employer] INC 150 / Implanted: Qty: 1 on 07/20/2020 by Jeff Espana MD at [facility] 2030 / [id number] Knee Ptla Dome Cmnt Attune 38 N 151 Ea1 - [id number] Total Jt Knee Left: KNEE J[employer] INC 151 / Implanted: Qty: 1 on 07/20/2020 by Jeff Espana MD at [facility] 2025 / [id number] Knee Tib Base Fb Cmnt S+ Sz7 N Ea1 - [id number] Total Jt Knee Right: KNEE [employer] INC 11/05/ / Implanted: Qty: 1 on 07/20/2020 by Jeff Espana MD at [facility] 2029 / [id number] Knee Tib Insrt Cr Attune Sz7 5 N Ea1 - [id number] Total Jt Knee Right: KNEE J[employer] INC 04/05/ / Implanted: Qty: 1 on 07/20/2020 by Jeff Espana MD at [facility] 2024 / [id number] Knee Fem Cr Cmnt Attune Rt Sz7 N Ea1 - [id number] Total Jt Knee Right: KNEE [employer] INC 04/05/ / Implanted: Qty: 1 on 07/20/2020 by Jeff Espana MD at [facility] 2030 / [id number] Knee Ptla Dome Cmnt Attune 38 N Ea1 - [id number] Total Jt Knee Right: KNEE [employer] / Implanted: Qty: 1 on 07/20/2020 by Jeff Espana MD at [facility] 2025 / [id number] Knee Tib Base Fb Cmnt S+ Sz7 N Ea1 - [id number] Total Jt Knee Left: KNEE [employer] INC 05/06/ / Implanted: Qty: 1 on 07/20/2020 by Jeff Espana MD at [facility] 2030 / [id number] Knee Tib Insrt Cr Attune Sz6 5 N 8- Ea1 - [id number] Total Jt Knee Left: KNEE [employer] / Implanted: Qty: 1 on 07/20/2020 by Jeff Espana MD at [facility] 2024 / [id number] Plate Wrist Shrt Bend Ster N .110.151s Ea1 - Sn/A Left: WRIST J&J DEPUY .110.151S / Implanted: Qty: 1 on 08/01/2017 by Herberth Hoang MD at [facility] SYNTHES 2019 N/A / [id number] Description:verified with Dr. Annalise Harrisp Hex 2.7x12mm N 202.812 Ea1 - Sn/A Left: WRIST J&J DEPUY SYNTHES 202.812 / Implanted: Qty: 1 on 08/01/2017 by Herberth Hoang MD at [facility] N/A / N/A Description:verified with Dr. Annalise Miramontesftp Hex 2.7x14mm N 202.814 Ea1 - Sn/A Left: WRIST J&J DEPUY SYNTHES 202.814 / Implanted: Qty: 1 on 08/01/2017 by Herberth Hoang MD at [facility] N/A / N/A Screw Lk Synt 2.7x14mm N 202.214 Ea1 - Sn/A Left: WRIST J&J DEPUY SYNTHES 202.214 / Implanted: Qty: 1 on 08/01/2017 by Herberth Hoang MD at [facility] N/A / N/A Description:verified with Dr. Annalise Webb 3.5x18mm N 204.818 Ea1 - Sn/A Left: WRIST J &J DEPUY SYNTHES 204.818 / Implanted: Qty: 1 on 08/01/2017 by Herberth Hoang MD at [facility] N/A / N/A Description:verified with Dr. Annalise Stone T15 Stardr 3.5x16mm N 212.104 Ea1 - Sn/A Left: WRIST J&J DEPUY SYNTHES 212.104 / Implanted: Qty: 1 on 08/01/2017 by Herberth Hoang MD at [facility] N/A / N/A Description:verified with Dr. Annalise Miramontesftp 3.5x14mm N 204.814 Ea1 - Sn/A Left: WRIST J &J DEPUY SYNTHES 204.814 / Implanted: Qty: 1 on 08/01/2017 by Herberth Hoang MD at [facility] N/A / N/A Description:verified with Dr. Annalise Stone T15 Stardr 3.5x20mm N 212.106 Ea1 - Sn/A Left: WRIST J&J DEPUY SYNTHES 212.106 / Implanted: Qty: 1 on 08/01/2017 by Herberth Hoang MD at [facility] N/A / N/A Description:verified with Dr. Annalise Stone Synt 2.7x12mm N 202.212 Ea1 - Sn/A Left: WRIST J&J DEPUY SYNTHES 202.212 / Implanted: Qty: 1 on 08/01/2017 by Herberth Hoang MD at [facility] N/A / N/A Description:verified with Dr. Woody Allo Tendon Gracilis 20-38cm N 365357 Ea1 - [id number] Left: HAND MUSCULOSKELETAL 07/29/2021 [id number] / Implanted: Qty: 1 on 08/01/2017 by Herberth Hoang MD at [facility] TRANSPLANT [id number] / N/A Description:verified with Dr. Woody- gracilis tendon graft for left hand documented as of this encounter Procedures Procedure Name Priority Date/Time Associated Diagnosis Comme nts SARS-COV-2, STAT 07/23/2020 6:21 Results for this INFLUENZA A+B, AM CDT procedure are in AND/OR RSV NUCLEIC the resul ts ACID TESTING PANEL section. LAB ONLY-COMPLETE Routine 07/21/2020 5:31 Result s for this BLOOD COUNT WITH AM CDT procedure a re in DIFFERENTIAL the results section. RENAL FUNCTION PANEL Routine 07/21/2020 5:31 Res ults for this AM CDT procedure are i n the results section. LAB ONLY-COMPLETE Routine 07/21/2020 5:31 Result s for this BLOOD COUNT WITH AM CDT procedure a re in DIFFERENTIAL the results section. XRAY KNEE 1-2 VIEWS Routine 07/20/2020 9:55 Resu lts for this RT AM CDT procedure are i n the results section. XRAY KNEE 1-2 VIEWS Routine 07/20/2020 9:55 Resu lts for this LT AM CDT procedure are i n the results section. ARTHROPLASTY KNEE 07/20/2020 6:40 Primary osteoarthri tis BILATERAL AM CDT of both knees Case Notes DEPUY Special Needs *x* Overnight stay (OP per i nsurance) documented in this encounter Results SARS-COV-2, INFLUENZA A+B, AND/OR RSV NUCLEIC ACID TESTING PANEL (07/23/2020 6:21 AM CDT) Pathologist Sig nature SARS-CoV-2 Not Detected Not Detected [facility] Specimen Respiratory - Nasopharyngeal swab (speci men) Narrative Performed At Please read entire report. Results for Influenza A and B or [facility] RSV may also be available depending on which viruses y our provider selected for testing. Your Covid-19 test is negative: 1)Avoiding close contact is s till recommended. 2)Cover your coughs and snee zes. 3)Wash your hands often with soap and wate r for at least 20 seconds or use an alcohol-based field radio technician containing over 60% alcohol. Avoid touch ing your face. 4)Avoid sharing personal household items, including dishes, cups, utensils, towels, clothing, or bedding. These items should be cleaned thoroughly with soap and water after use. Clean all "high touch" surfaces i n your home daily. 5) Monitor your symptoms. Contact your provider if you are feeling worse. If you have shortness of breath or difficulty breathing, call 911. This assay is for in vitro diagnostic use under FDA Emergency Use Authorization only. Optimal performance of this test requires appropriate specimen collection, storage, and transport to the [facility]. Detection of SARS-CoV-2 RNA may be affected by sample collection methods, patient factors (eg, presence of symptoms), and/or stage of infection. False-negative results may arise from degradation of v iral RNA during shipping/storage. Results should be interpreted by a trained professiona l in conjunction with the patient s history and clinical signs and symptoms, and epidemiological risk factors. Negative (Not Detected) results do not preclude infect ion with the SARS-CoV-2 virus and should not be the sole b asis of patient treatment/management or public health decis ion. Follow up testing should be performed according to the current CDC recommendations. This test was performed by polymerase chain reaction ( PCR) on the GeneXpert instrument. Performing Organization Address City/[facility] Phon e Number [facility] [address] [place] [address] LAB ONLY-COMPLETE BLOOD COUNT WITH DIFFERENTIAL (07/21/2020 5:31 AM CDT) WBC 15.5 (H) 4.0 - 11.0 K/uL [facility] RBC 3.54 (L) 4.40 - 5.80 [facility] M/[facility] Hemoglobin 11.8 (L) 13.5 - 17.5 [facility] gdL [place] Hematocrit 36.4 (L) 40.0 - 50.0 % [facility] MCV 102.8 (H) 80.0 - 98.0 fL [facility] MCH 33.3 25.5 - 34.0 pg [facility] MCHC 32.4 31.5 - 36.5 [facility] gdL [place] RDW-CV 13.8 11.5 - 15.5 % [facility] RDW-SD 50.2 (H) 35.5 - 50.0 fl [facility] Platelet Count 266 140 - 400 K/uL [facility] MPV 10.0 8.5 - 12.0 fL [facility] Seg Neut Absolute 12.3 (H) 1.8 - 8.0 K/uL [facility] Lymphocytes Absolute 2.0 0.8 - 4.1 K/uL [facility] Monocytes Absolute 1.2 (H) 0.0 - 1.0 K/uL [facility] Eosinophils Absolute 0.0 0.0 - 0.7 K/uL [facility] Basophil Absolute 0.0 0.0 - 0.2 K/uL [facility] Neutrophils Abs. 12,300 /uL [facility] (Segs and Bands) [place] Neutrophils Percent 78.8 % [facility] Lymphocytes Percent 12.6 % [facility] Monocytes Percent 8.0 % [facility] Eosinophils Percent 0.0 % [facility] Basophil Percent 0.1 % [facility] Specimen Blood - Blood specimen (specimen) Performing Organization Address City/[facility] Code Phon e Number [facility] [address] [place] [address] RENAL FUNCTION PANEL (07/21/2020 5:31 AM CDT) Pathologist Sig nature Glucose 145 (H) 70 - 100 mg/dL [facility] BUN 15 6 - 22 mg/dL [facility] Creatinine 0.79 (L) 0.80 - 1.30 [facility] mg/dL [place] BUN/Creatinine Ratio 19.0 10.0 - 25.0 [facility] Sodium 135 135 - 145 meq/L [facility] Potassium 3.8 3.5 - 5.3 meq/L [facility] Chloride 103 99 - 110 meq/L [facility] CO2 24 20 - 29 meq/L [facility] Anion Gap with K 12 6 - 20 meq/L [facility] Calcium 8.2 (L) 8.5 - 10.5 [facility] mg/dL [place] Phosphorus 2.6 2.5 - 4.5 mg/dL [facility] Albumin 3.3 (L) 3.5 - 5.0 g/dL [facility] Corrected Calcium 8.8 8.5 - 10.5 [facility] mg/dL [place] Age 75 Years [facility] eGFR Non- >90 >=60 [facility] mL/min/1.73m2 [place] eGFR >90 >=60 [facility] Algerian mL/min/1.73m2 [place] Specimen Blood - Blood specimen (specimen) Performing Organization Address City/State/ZIP Code Phon e Number [facility] [address] [place] [address] XRAY KNEE 1-2V - RT (07/20/2020 9:55 AM CDT) Specimen Narrative Performed At [facility] Patient Name: OTONIEL MONCADA Date of : 1945 Procedure: XRAY KNEE 1-2 VIEWS RT Date of Service: 07/20/2020 EXAM: XRAY KNEE 1-2 VIEWS RT INDICATION: post op TKA COMPARISON(S): None Available TECHNIQUE: AP and Crosstable lateral portable views of the right knee were obtained. FINDINGS: There is a new right total knee arthroplasty. The dickens rdware is anatomically positioned. There is soft tissue emphys kika related to the recent surgery. No fracture or obvious complication. IMPRESSION: 1. Anatomic uncomplicated right total knee arthroplasty. Finalized by: Herberth Hay MD on 021 11:15 AM CDT Patient/Procedure Information: [facility] MRN/LLOYD: [id number] Order Number: [id number] Accession Number: [id number] Ordering Provider: JOJO DC Authorizing Provider: JOJO DC Procedure Note Interface, Ludmilaantres - 07/20/2020 11:17 AM CDT Patient Name: OTONIEL MONCADA Date of : 1945 Procedure: XRAY KNEE 1-2 VIEWS RT Date of Service: 07/20/2020 EXAM: XRAY KNEE 1-2 VIEWS RT INDICATION: post op TKA COMPARISON(S): None Available TECHNIQUE: AP and Crosstable lateral po rtable views of the right knee were obtained. FINDINGS: There is a new right total knee arthropl asty. The hardware is anatomically positioned. There is soft tissue emphysema related to the recent surgery. No fracture or obvious complication. IMPRESSION: 1. Anatomic uncomplicated right total k nee arthroplasty. Finalized by: Herberth Hay MD on 021 11:15 AM CDT Patient/Procedure Information: [facility] MRN/LLOYD: [id number] Order Number: [id number] Accession Number: [id number] Ordering Provider: JOJO DC Authorizing Provider: JOJO DC Performing Organization Address City/State/ZIP Code Phon e Number [id number] XRAY KNEE 1-2V - LT (07/20/2020 9:55 AM CDT) Specimen Narrative Performed At [facility] Patient Name: OTONIEL MONCADA Date of : 1945 Procedure: XRAY KNEE 1-2 VIEWS LT Date of Service: 07/20/2020 EXAM: XRAY KNEE 1-2 VIEWS LT INDICATION: post op TKA COMPARISON(S): 06/18/2020 and 09/04/2019 TECHNIQUE: AP and Crosstable lateral p ortable views were obtained. FINDINGS: There is a new left total knee arthroplasty. The lloyd dware is anatomically positioned. There is soft tissue emphys kika and skin conor related to the recent surgery. No fracture o r obvious complication. IMPRESSION: 1. Anatomic uncomplicated left total k nee arthroplasty. Finalized by: Herberth Hay MD on 021 11:13 AM CDT Patient/Procedure Information: [facility] MRN/LLOYD: [id number] Order Number: [id number] Accession Number: [id number] Ordering Provider: JOJO CD Authorizing Provider: JOJO DC Procedure Note Interface, Radiantres - 07/20/2020 11:15 AM CDT Patient Name: OTONIEL MONCADA Date of : 1945 Procedure: XRAY KNEE 1-2 VIEWS LT Date of Service: 07/20/2020 EXAM: XRAY KNEE 1-2 VIEWS LT INDICATION: post op TKA COMPARISON(S): 06/18/2020 and 09/04/2019 TECHNIQUE: AP and Crosstable lateral po rtable views were obtained. FINDINGS: There is a new left total knee arthropla sty. The hardware is anatomically positioned. There is soft tissue emphysema and skin conor related to the recent surgery. No fracture or obvious complication. IMPRESSION: 1. Anatomic uncomplicated left total kn ee arthroplasty. Finalized by: Herberth Hay MD on 021 11:13 AM CDT Patient/Procedure Information: [facility] MRN/LLOYD: [id number] Order Number: [id number] Accession Number: [id number] Ordering Provider: JOJO DC Authorizing Provider: JOJO DC Performing Organization Address City/State/ZIP Code Phon e Number [id number] documented in this encounter Visit Diagnoses Diagnosis Status post total bilateral knee replace ment - Primary Primary osteoarthritis of both knees Primary localized osteoarthrosis, lower leg Ankylosing spondylitis (HCC) Ankylosing spondylitis Arthritis of knee, left Unspecified arthropathy, lower leg DVT of upper extremity (deep vein thromb osis) (HCC) Acute venous embolism and thrombosis of deep veins of upper extremity Hypertension Unspecified essential hypertension 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 Calculus of kidney Localized osteoarthritis of hand Localized osteoarthrosis not specified w hether primary or secondary, hand Closed fracture of clavicle Unspecified part of closed fracture of c lavicle S/P TURP Other postprocedural status Hyperlipemia Other and unspecified hyperlipidemia S/P lumbar fusion Arthrodesis status Chronic back pain Backache, unspecified 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, not stated as uncontrolled, or unspecified Iron deficiency anemia Iron deficiency anemia, unspecified Obesity Obesity, unspecified Chronic pain syndrome Hypertriglyceridemia Pure hyperglyceridemia Bilateral knee pain Pain in joint, lower leg 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 Sleep disorder Sleep disturbance, unspecified 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 Pediatric Patients 0 - 3 months: Maximum of 60 mg/kg/24 hours of acetaminophen. Pediatric Patients older than 3 months: Maximum of 75 mg/kg/24 hours of acetaminophen (Never exceeding 4 grams/day). Given 07/23/2020 5:22 AM CDT 650 mg Given 07/23/2020 12:40 AM CDT 650 mg apixaban (ELIQUIS) tablet 2.5 mg Given 07/23/2020 8:36 AM CDT 2.5 mg 2.5 mg, Oral, Two times a day, 24 doses, First dose on Mon07/21/20 at 0800, Last dose on Mon08/01/20 at 2000, Post - Op Given 07/22/2020 8:47 PM CDT 2.5 mg Given 07/22/2020 8:28 AM CDT 2.5 mg benazepril (LOTENSIN) tablet 10 mg Given 07/23/2020 8:36 AM CDT 10 mg 10 mg, Oral, DAILY, First dose on Mon07/21/20 at 0900, Until Discontinued Given 07/22/2020 8:28 AM CDT 10 mg Given 07/21/2020 9:06 AM CDT 10 mg bisacodyl (DULCOLAX) enteric coated tablet 5 Given 06/17/202 1 3:14 AM CDT 5 mg mg 5 mg, Oral, Two times a day prn, Starting on Mon07/20/20 at 1144, Until Discontinued, constipation, Post - Op, SECOND choice or per patient preference bisacodyl (DULCOLAX) suppository 10 mg Given 07/23/2020 5:48 AM CDT 10 mg 10 mg, Rectal, One time a day prn, Starting on Mon07/20/20 at 1144, Until Discontinued, constipation, Post - Op, THIRD choice or per patient preference. If patient cannot take oral medications, use first for constipation. celecoxib (celeBREX) capsule 200 mg Given 07/23/2020 8:36 AM CDT 200 mg 200 mg, Oral, Two times a day, 20 doses, First dose on Mon07/21/20 at 2100, Last dose on Mon07/31/20 at 0900, Post - Op Given 07/22/2020 8:51 PM CDT 200 mg Given 07/22/2020 8:47 PM CDT 200 mg magnesium hydroxide (MILK OF MAGNESIA) oral Given 07/22/2020 8:47 PM CDT 30 mL suspension 30 mL 30 mL, Oral, Two times a day prn, Starting on Mon07/20/20 at 1144, Until Discontinued, constipation, 30 mL, Post - Op, FIRST choice or per patient preference. Exception: Nephrology/renal patients magnesium oxide tablet 500 mg Given 07/23/2020 8:36 AM CDT 500 mg 500 mg, Oral, DAILY, First dose on Mon07/21/20 at 0900, Until Discontinued Given 07/22/2020 8:28 AM CDT 500 mg Given 07/21/2020 9:07 AM CDT 500 mg oxyCODONE (OXY-IR) tablet 5-10 mg Given 07/22/2020 10:06 AM CDT 10 mg 5-10 mg, Oral, Every four hours prn, Starting on Mon07/20/20 at 1144, Until Discontinued, moderate pain, severe pain, Post - Op, For patients with moderate pain, pain rating of 4-6, give oxyCODONE 5 mg PO every 4 hours PRN. For patients with severe pain, pain rating of 7 or greater, give oxyCODONE 10 mg PO every 4 hours PRN. May administer less potent prescribed medication based on patient request per the organization's medication management policy. Given 07/22/2020 2:17 AM CDT 10 mg Given 07/21/2020 5:33 PM CDT 10 mg polyethylene glycol (MIRALAX) packet 1 Given 07/22/2020 8:28 AM CDT 1 packet packet 1 packet, Oral, Daily, First dose on Mon07/21/20 at 0900, Until Discontinued, Post - Op, Hold if 2 loose stools occur in the last 24 hours. Given 07/21/2020 9:08 AM CDT 1 packet predniSONE tablet 12.5 mg Given 07/23/2020 8:36 AM CDT 12.5 mg 12.5 mg, Oral, Daily, First dose on Mon07/20/20 at 1700, Until Discontinued Given 07/22/2020 8:29 AM CDT 12.5 mg Given 07/21/2020 9:07 AM CDT 12.5 mg senna-docusate sodium Given 07/22/2020 8:47 PM CDT 1 tablet (SENOKOT-S;PERICOLACE) tablet 1 tablet 1 tablet, Oral, Two times a day, First dose on Mon07/20/20 at 2100, Until Discontinued, Post - Op, Hold if 2 loose stools occur in the last 24 hours. Given 07/22/2020 8:28 AM CDT 1 tablet Given 07/21/2020 8:45 PM CDT 1 tablet sodium chloride 0.9% flush (adult) 10 mL Given 07/23/2020 8:39 AM CDT 10 mL 10 mL, IV, Two times a day and prn, First dose on Mon07/20/20 at 2100, Until Discontinued, 10 mL, Post - Op, Flush unused lumens as scheduled and as often as necessary before and after meds. Use a push/pause technique when flushing to create turbulence. Given 07/22/2020 8:48 PM CDT 10 mL Given 07/22/2020 8:29 AM CDT 10 mL traMADol (ULTRAM) tablet 50 mg Given 07/23/2020 8:36 AM CDT 50 mg 50 mg, Oral, Every six hours, First dose on Mon07/20/20 at 1500, Until Discontinued, Post - Op, Alternate with acetaminophen (TYLENOL). Recommended maximum daily dose of traMADol = 400 mg. Recommended maximum daily dose in patients greater than 75 years of age = 300 mg Given 07/23/2020 3:09 AM CDT 50 mg Given 07/22/2020 8:47 PM CDT 50 mg Medication Order MAR Action Action Date Dose Rate Site acetaminophen (TYLENOL) tablet Given 07/20/2020 6:17 AM CDT 1,0 00 mg 1,000 mg 1,000 mg, Oral, Pre-op, 1 dose, On Mon07/20/20 at 0540, Pre - Op, Adult patients: Total dose of acetaminophen from all acetaminophen containing products should not exceed 4 grams (4000 mg) per day. Pediatric Patients 0 - 3 months: Maximum of 60 mg/kg/24 hours of acetaminophen. Pediatric Patients older than 3 months: Maximum of 75 mg/kg/24 hours of acetaminophen (Never exceeding 4 grams/day). ceFAZolin (ANCEF) 2000 mg/20 mL sterile Given 07/20/2020 11:25 P M CDT 2,000 mg water IV syringe 2,000 mg, IV, Every eight hours, 2 doses, First dose on Mon07/20/20 at 1530, Last dose on Mon07/20/20 at 2330, 20 mL, PACU - Continue Post-Op, Administer as IV push over 4 minutes. Given 07/20/2020 3:30 PM CDT 2,000 mg fentaNYL 100 mcg/2 mL preservative free Given 07/20/2020 6:55 A M CDT 100 mcg injection solution 25-100 mcg 25-100 mcg, IV, Every five minutes prn, 3 doses, Starting on Mon07/20/20 at 0646, Until Mon07/20/20 at 0909, other (Specify), analgesia during procedure, 2 mL, Pre - Op, Fentanyl 25-100 mcg q 5 min prn over the next 2 hours to a MAX of 300 mcg as needed for analgesia during procedure fentaNYL 100 mcg/2 mL preservative free Given 07/20/2020 10:34 A M CDT 50 mcg injection solution 50 mcg 50 mcg, IV, Every five minutes prn, 6 doses, Starting on Mon07/20/20 at 0919, Until Mon07/20/20 at 1112, other (Specify), moderate pain scale 4-6 or severe pain above 7 if hydromorphone not ordered (max dose of 300 mcg), 1 mL, PACU, Use only anesthesia's orders for moderate or severe pain while in PACU or recovery care Given 07/20/2020 10:15 AM CDT 50 mcg Given 07/20/2020 9:57 AM CDT 50 mcg gabapentin (NEURONTIN) capsule 600 mg Given 07/20/2020 6:17 AM CDT 600 mg 600 mg, Oral, Pre-op, 1 dose, On Mon07/20/20 at 0540, Pre - Op, 1 dose prior to surgery HYDROmorphone (DILAUDID) injection solution Given 07/07 10:09 AM CDT 0.5 mg (conc: 1 mg/mL) 0.5 mg 0.5 mg, IV, Every five minutes prn, 4 doses, Starting on Mon07/20/20 at 0919, Until Mon07/20/20 at 1112, other (Specify), severe pain scale 7 or above, or moderate pain not relieved by fentaNYL (max dose of 2 mg), 0.5 mL, PACU, Use only anesthesia's orders for moderate or severe pain while in PACU or recovery care Given 07/20/2020 10:04 AM CDT 0.5 mg lactated ringers IV solution New Bag 07/20/2020 8:43 AM CDT IV, at 25 mL/hr, Continuous, Starting on Mon07/20/20 at 0645, Until Mon07/20/20 at 0909, 1,000 mL, Pre - Op Now New Bag/Tubing 07/20/2020 6:16 AM CDT 25 mL/hr lactated ringers IV solution Already Infusing 07/20/2020 9:38 AM CDT 125 mL/hr IV, at 125 mL/hr, Continuous, Starting on Mon07/20/20 at 0920, Until Mon07/20/20 at 1112, 1,000 mL, PACU, TKO current fluids if patient is going to Day Unit / ARU and tolerating PO fluids without nausea. lidocaine 2%-EPINEPHrine 1:200,000 10 mL in Given 07/20/2020 6: 55 AM CDT ropivacaine 0.5 % 100 mg Peripheral Nerve Block Injection Syringe Perineural, Now, 1 dose, On Mon07/20/20 at 0650, 30 mL, Pre - Op, Inject 5-10 mL per administration as directed by Anesthesia with a total maximum of 40 mL midazolam (VERSED) injection solution 0.25-2 Given 6:55 AM CDT 2 mg mg 0.25-2 mg, IV, Every five minutes prn, 6 doses, Starting on Mon07/20/20 at 0646, Until Mon07/20/20 at 0909, sedation, 2 mL, Pre - Op, Midazolam 0.25-2 mg q 5 min prn to a MAX of 5 mg as needed for sedation during procedure. sodium chloride 0.9% IV solution New Bag 07/20/2020 12:39 PM CDT 100 mL/hr IV, at 100 mL/hr, Continuous, Starting on Mon07/20/20 at 1145, Until Mon07/21/20 at 1044, 1,000 mL, Post - Op traMADol (ULTRAM) tablet 100 mg Given 07/20/2020 6:17 AM CDT 100 mg 100 mg, Oral, Pre-op, 1 dose, On Mon07/20/20 at 0540, Pre - Op, Recommended maximum daily dose of tramadol = 400 mg. Recommended maximum daily dose in patients 75 years or older = 300 mg. documented in this encounter Active and Recently Administered Medications Times are shown in CDT. Medication Order 07/21/2020 07/22/2020 07/23/2020 acetaminophen (TYLENOL) tablet 650 mg 0604 (Given - Pr ovider: Jalen Mccain, Nurse Coordinator [employer])1216 (Given - Provider: Carlo Nicole RN)1733 (Given - Provider: Jazmyn Negron RN)2350 (Given - Provider: Jalen Mccain, Nurse Coordinator [employer]) 0645 (Given - Provider: Jalen Mccain, Nurse Coordinator [employer])1249 (Given - Provider: Carlo Nicole RN)1821 (Given - Provider: Priyanka Abdalla RN) 0040 (Given - Provider: Gissell Garcia RN)0522 (Given - Provider: Gissell Garcia, SHAWN)1119 (Given - Provider: Jazmyn Negron RN)1800 (Due) 650 mg, Oral, Every six hours, First dos e on Mon07/20/20 at 1200, Until Discontinued, Post - Op, Alternate with tramadol (ULTRAM); Adult patients: Total dose of acetaminophen from all acetaminophen co ntaining products should not exceed 4 gr ams (4000 mg) per day. Pediatric Patients 0 - 3 months: Maximum of 60 mg/kg/24 hours of acetaminophen. Pediatric Patients older than 3 months: Maximum of 75 mg /kg/24 hours of acetaminophen (Never exceeding 4 grams/day). apixaban (ELIQUIS) tablet 2.5 mg 908 (Given - Provide r: Carlo Nicole RN)2044 (Given - Provider: Jalen Mccain, Nurse Coord[employer]) 827 (Given - Provider: Carlo Nicole RN)2046 (Given - Provider: Priyanka Abdalla RN) 08 (Given - Provider: Jazmyn Negron RN)1999 (Due) 2.5 mg, Oral, Two times a day, 24 doses, First dose on Mon07/21/20 at 0800, Last dose on Mon08/01/20 at 1999, Post - Op benazepril (LOTENSIN) tablet 10 mg 905 (Given - Provider: Elier Nicole RN) 827 (Given - Provider: Carlo Nicole RN) 835 (Given - Provider: Jazmyn Negron RN) 10 mg, Oral, DAILY, First dose on Mon07/21/20 at 0900, Until Dis continued celecoxib (celeBREX) capsule 200 mg 2044 (Given - Prov ider: Jalen Mccain, Nurse [employer]) 827 (Given - Provider: Miguel Ángel Hathaway N)2046 (Given - Provider: Priyanka Abdalla RN)2050 (Given - Provider: Priyanka Abdalla RN) 835 (Given - Provider: Jazmyn Negron RN)2099 (Due) 200 mg, Oral, Two times a day, 20 doses, First dose on Mon07/21/20 at 2100, Last dose on Mon07/31/20 at 0900, Post - Op magnesium oxide tablet 500 mg 09 (Given - Provider: Carlo Nicole RN) 827 (Given - Provider: Carlo Nicole RN) 835 (Given - Provider: Jazmyn Negron RN) 500 mg, Oral, DAILY, First dose on Mon07/21/20 at 0900, Until Di scontinued polyethylene glycol (MIRALAX) packet 1 packet 0908 (Gi julius - Provider: Carlo Nicole RN) 0828 (Given - Provider: Carlo Nicole RN) 0835 (Refus ed - Provider: Jazmyn Negron RN - Comment: pt had BM this am) 1 packet, Oral, Daily, First dose on Mon07/21/20 at 0900, Until Discontinued, Post - Op, Hold if 2 loose stools occur in the last 24 hours. predniSONE tablet 12.5 mg 09 (Given - Provider: Carlo ta RN) 08 (Given - Provider: Carlo Nicole RN) 0836 (Given - Provider: Jazmyn Negron, SHAWN) 12.5 mg, Oral, Daily, First dose on Mon07/20/20 at 1700, Until D iscontinued senna-docusate sodium (SENOKOT-S;PERICOLACE) tablet 1 tablet 09 (Given - Provider: Carlo Nicole RN)2044 (Given - Provider: Jaeln Mccain, Nurse Coord[employer]) 827 (Given - Provider: Miguel Ángel Hathaway N)2046 (Given - Provider: Priyanka Abdalla, SHAWN) 0835 (Refused - Provider: Jazmyn Negron RN - Comment: Pt had BM this am)2100 (Due) 1 tablet, Oral, Two times a day, First d ose on Mon07/20/20 at 2100, Until Discontinued, Post - Op, Hold if 2 loose stools occur in the last 24 hours. sodium chloride 0.9% flush (adult) 10 mL 908 (Given - Provider: Carlo Nicole RN)2047 (Given - Provider: Jalen Mccain, Nurse Coord[employer]) 08 (Given - Provider: Carlo Nicole RN)2047 (Given - Provider: Priyanka Abdalla, RN) 0839 (Given - Provider: Jazmyn Negron, RN)2100 (Due) 10 mL, IV, Two times a day and prn, Firs t dose on Mon07/20/20 at 2100, Until Discontinued, 10 mL, Post - Op, Flush unused lumens as scheduled and as often as necessary before and after meds. Use a push/ pause technique when flushing to create turbulence. traMADol (ULTRAM) tablet 50 mg 0401 (Given - Provider: Vick Monroy, SHAWN)0908 (Given - Provider: Carlo Nicole, SHAWN)1452 (Given - Provider: Carlo Nicole RN)204 (Given - Provider: Jalen Mccain, Nurse Coordinator [employer]) 0340 (Given - Provider: Vick Monroy, SHAWN)0828 (Given - Provider: Carlo Nicole RN)1458 (Given - Provider: Carlo Nicole RN)204 (Given - Provider: Priyanka Abdalla RN) 0309 (Given - Provider: Gissell Garcia RN)0836 (Given - Provider: Jazmyn Negron RN)1500 (Due)2100 (Due) 50 mg, Oral, Every six hours, First dose on Mon07/20/20 at 1500, Until Discontinued, Post - Op, Alternate with acetaminophen (TYLENOL). Recommended maximum daily dose of traMADol = 400 mg. Recommended maximum daily dose in patients greater than 75 years of age = 3 00 mg Medication Order 07/21/2020 07/22/2020 07/23/2020 benzocaine-menthol (CEPACOL w/ BENZOCAINE) lozenge 1 lozenge 1 lozenge, Mouth/Throat, Every four hour s prn, Starting on Mon07/20/20 at 1144, Until Discontinued, sore throat, other (Specify), throat irritation, Post - Op, Exception: Patients with dysphagia, radiat ion mucositis/esophagitis or without a gag reflex. bisacodyl (DULCOLAX) enteric coated tablet 5 mg 2047 (Not Given - Provider: Priyanka Abdalla RN - Reason: Not Given) 313 (Given - Provider: Gissell Garcia RN) 5 mg, Oral, Two times a day prn, Startin g on Mon07/20/20 at 1144, Until Discontinued, constipation, Post - Op, SECOND choice or per patient preference bisacodyl (DULCOLAX) suppository 10 mg 0548 (Given - Provider: Gissell Garcia RN) 10 mg, Rectal, One time a day prn, Start ing on Mon07/20/20 at 1144, Until Discontinued, constipation, Post - Op, THIRD choice or per patient preference. If patient cannot take oral medications, use first for constipation. fentaNYL 100 mcg/2 mL preservative free injection solution 50 mc g 50 mcg, IV, Every thirty minutes prn, St arting on Mon07/20/20 at 1144, Until Discontinued, severe pain, 1 mL, Post - Op, If pain unrelieved by oxycodone magnesium hydroxide (MILK OF MAGNESIA) oral suspension 30 mL 2046 (Given - Provider: Priyanka Abdalla, SHAWN) 30 mL, Oral, Two times a day prn, Starti ng on Mon07/20/20 at 1144, Until Discontinued, constipation, 30 mL, Post - Op, FIRST choice or per patient preference. Exception: Nephrology/renal patients nalOXone (NARCAN) injection solution (vial) 0.2 mg 0.2 mg, Injection, Every two minutes prn , Starting on Mon07/20/20 at 1144, Until Discontinued, other (Specify), opioid induced respiratory depression - PARTIAL reversal, 0.5 mL, Post - Op, PARTIAL REVER ROULA/RESPIRATORY DEPRESSION If respirator y rate less than 8/minute - call rapid response and administer (until respiratory rate increases to 10/minute). Give IV (preferred), IM or SUBQ nalOXone (NARCAN) injection solution (vial) 0.4 mg 0.4 mg, Injection, Every two minutes prn , Starting on Mon07/20/20 at 1144, Until Discontinued, other (Specify), opioid induced respiratory arrest - FULL reversal, 1 mL, Post - Op, FULL REVERSAL/RESPIRAT ORY ARREST If patient is not breathing - call CODE BLUE and administer. Give IV (preferred), IM or SUBQ ondansetron (ZOFRAN) injection solution 4 mg 4 mg, IV, Every four hours prn, Starting on Mon07/20/20 at 0901, Until Discontinued, nausea, vomiting, 2 mL, PACU - Continue Post-Op, If ineffective after 15 minutes use promethazine If preference is to further dilute for IV administration: F irst draw up patient-specific dose, then dilute to 10 mL with 0.9% sodium chloride. oxyCODONE (OXY-IR) tablet 5-10 mg 1030 (Given - Provid er: Carlo Nicole RN)1733 (Given - Provider: Jazmyn Negron RN) 0217 (Given - Provider: Vick Monroy RN)1006 (Given - Provider: Carlo Nicole RN) 5-10 mg, Oral, Every four hours prn, Sta rting on Mon07/20/20 at 1144, Until Discontinued, moderate pain, severe pain, Post - Op, For patients with moderate pain, pain rating of 4-6, give oxyCODONE 5 mg PO every 4 hours PRN. For patients with severe pain, pain rating of 7 or greater, give oxyCODONE 10 mg PO every 4 hours PRN. May administer less potent prescribed medication based on patient request p er the organization's medication management policy. documented in this encounter
[2020-07-24] MEDS: predniSONE 10 MG Tab PO SCH (08:22)
[2020-07-24] MEDS: Cholecalciferol (Vitamin D3) 25 MCG Tab PO SCH (08:23)
[2020-07-24] MEDS: predniSONE 5 MG Tab PO SCH (08:23)
[2020-07-24] MEDS: Magnesium Oxide 400 MG Tab PO SCH (08:24)
[2020-07-24] MEDS: Lisinopril 10 MG Tab PO SCH (08:24)
[2020-07-24] MEDS: Apixaban 2.5 MG Tab PO SCH ×2 (08:24→19:54)
[2020-07-24] MEDS: Calcium Carbonate/Vitamin D3 1250 MG-5 MCG Tab PO SCH (08:24)
[2020-07-24] MEDS: INDOMETHACIN 75 MG PO SCH ×2 (08:28→17:21)
[2020-07-25] MEDS: Acetaminophen 325 MG Tab PO SCH ×4 (05:48→23:34)
[2020-07-25] MEDS: Omeprazole 20 MG Cap.CR PO SCH (06:00)
[2020-07-25] MEDS: Lisinopril 10 MG Tab PO SCH (07:45)
[2020-07-25] MEDS: Calcium Carbonate/Vitamin D3 1250 MG-5 MCG Tab PO SCH (07:45)
[2020-07-25] MEDS: traMADol 50 MG Tab PO SCH ×3 (07:45→19:42)
[2020-07-25] MEDS: Apixaban 2.5 MG Tab PO SCH ×2 (07:46→19:42)
[2020-07-25] MEDS: predniSONE 5 MG Tab PO SCH (07:46)
[2020-07-25] MEDS: predniSONE 10 MG Tab PO SCH (07:46)
[2020-07-25] MEDS: Cholecalciferol (Vitamin D3) 25 MCG Tab PO SCH (07:46)
[2020-07-25] MEDS: Magnesium Oxide 400 MG Tab PO SCH (07:46)
[2020-07-25] MEDS: INDOMETHACIN 75 MG PO SCH ×2 (07:47→17:10)
[2020-07-26] MEDS: Omeprazole 20 MG Cap.CR PO SCH (06:15)
[2020-07-26] MEDS: Acetaminophen 325 MG Tab PO SCH ×4 (06:15→23:41)
[2020-07-26] MEDS: INDOMETHACIN 75 MG PO SCH ×2 (07:38→17:09)
[2020-07-26] MEDS: predniSONE 10 MG Tab PO SCH (07:39)
[2020-07-26] MEDS: Magnesium Oxide 400 MG Tab PO SCH (07:39)
[2020-07-26] MEDS: Apixaban 2.5 MG Tab PO SCH ×2 (07:39→19:56)
[2020-07-26] MEDS: traMADol 50 MG Tab PO SCH ×3 (07:39→19:55)
[2020-07-26] MEDS: predniSONE 5 MG Tab PO SCH (07:39)
[2020-07-26] MEDS: Lisinopril 10 MG Tab PO SCH (07:39)
[2020-07-26] MEDS: Calcium Carbonate/Vitamin D3 1250 MG-5 MCG Tab PO SCH (07:40)
[2020-07-26] MEDS: Cholecalciferol (Vitamin D3) 25 MCG Tab PO SCH (07:40)
[2020-07-27] MEDS: Acetaminophen 325 MG Tab PO SCH (06:31)
[2020-07-27] MEDS: Omeprazole 20 MG Cap.CR PO SCH (06:31)
[2020-07-27 06:34] VITALS: PULSE 80
[2020-07-27] MEDS: Magnesium Oxide 400 MG Tab PO SCH (07:37)
[2020-07-27] MEDS: predniSONE 5 MG Tab PO SCH (07:38)
[2020-07-27] MEDS: Calcium Carbonate/Vitamin D3 1250 MG-5 MCG Tab PO SCH (07:38)
[2020-07-27] MEDS: Cholecalciferol (Vitamin D3) 25 MCG Tab PO SCH (07:38)
[2020-07-27] MEDS: traMADol 50 MG Tab PO SCH (07:38)
[2020-07-27] MEDS: predniSONE 10 MG Tab PO SCH (07:39)
[2020-07-27] MEDS: Lisinopril 10 MG Tab PO SCH (07:39)
[2020-07-27] MEDS: Apixaban 2.5 MG Tab PO SCH (07:39)
[2020-07-27] MEDS: INDOMETHACIN 75 MG PO SCH (07:40)
[2020-07-27 07:41] VITALS: BP 157/81
--- NOTE | 2020-07-28 07:34 | DISCH ---
PRIMARY DISCHARGE DIAGNOSIS: An elective bilateral knee replacement on 07/20 for arthritis. SECONDARY DISCHARGE DIAGNOSES: 1. Steroid-dependent ankylosing spondylitis. 2. Ulcerative colitis. 3. Steroid-induced osteoporosis. 4. Previous deep vein thrombosis of the upper extremity with a previous fracture of the clavicle and recurrent infections. That is one reason why he does not take immunosuppressants. 5. History of transurethral resection of the prostate. 6. Previous multiple back surgeries. 7. Hyperlipidemia. 8. Essential hypertension. 9. 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 10.Iron deficiency anemia. 11.Obesity. 12.Sleep disorder. 13.Hypertriglyceridemia. REASON FOR ADMISSION: On the date of admission, this 75-year-old male was transferred to [facility] after a 3-day stay after bilateral knee replacement. The patient was getting scheduled tramadol 4 times a day. He actually never took a p.r.n. oxycodone dose during his stay, but reported to me that he was actually feeling quite sore and achy at night and wished he would have tried a lower dose. He was maintained on Eliquis 2.5 twice daily to prevent DVT and had no bleeding issues. His blood counts were monitored here and his hemoglobin was 10.1 on the . His kidney function was normal. His glucose was 137. The patient did have just slightly elevated blood pressures. This was felt to be related to his pain. He was on his home Lotensin. He was also on his Indocin. PHYSICAL EXAMINATION: Discharging Vitals: Today include temperature 98.1, pulse 80, blood pressure 151/78, respiratory rate 18, and O2 of 93% on room air. General: He is in no acute distress. Heart: Regular rate and rhythm. S1, S2 without murmur. Lungs: Lung sounds are clear to auscultation bilaterally without crackles or wheezes. Extremities: Warm and dry. No edema. Both knee dressings were removed. He had some drainage, some bleeding on the dressing, which is minimal. There was no redness, drainage, or discharge from his wounds with conor intact and well healed. He otherwise had no calf tenderness. No edema. Mental Status: He is alert and oriented x3. DISCHARGE PLANS AND INSTRUCTIONS: He has a followup next Monday in the ortho clinic. He will follow up with me in the clinic if needed. Otherwise, I will see him as previously planned in the fall. He was just tapered down to tramadol 3 times a day scheduled here and he may use oxycodone at bedtime as needed. He will be doing outpatient PT and can further decrease to 1/2 of a tramadol or 25 mg 3 times a day. He was given a 2-week supply. He should use his walker and support stockings and will be on Eliquis also until the . The patient will also ice his knees to help with pain. He does have family coming to stay with him. The patient should not resume driving until given the okay by Ortho. MKA: 07/27/2020 22:30:44 MODL: 07/28/2020 00:28:03 /[id number] THOMAS
== END 2020-07-27 11:35 | disposition home or self-care (01) | DRG 560 ==
LOC: VM.MS 13:39
PROVIDERS: ADMIT Internal Medicine; ATTEND Internal Medicine
DX: Z47.1 Aftercare following joint replacement surgery (principal); D84.9 Immunodeficiency, unspecified; Z96.653 Presence of artificial knee joint, bilateral; M45.9 Ankylosing spondylitis of unspecified sites in spine; M81.8 Other osteoporosis without current pathological fracture; T38.0X5A Adverse effect of glucocorticoids and synthetic analogues, initial encounter; E78.5 Hyperlipidemia, unspecified; I10 Essential (primary) hypertension; E11.9 Type 2 diabetes mellitus without complications; D50.9 Iron deficiency anemia, unspecified; E66.9 Obesity, unspecified; G47.9 Sleep disorder, unspecified; N40.0 Benign prostatic hyperplasia without lower urinary tract symptoms; E78.1 Pure hyperglyceridemia; G89.29 Other chronic pain; M54.9 Dorsalgia, unspecified; Z98.49 Cataract extraction status, unspecified eye; Z79.01 Long term (current) use of anticoagulants; Z86.718 Personal history of other venous thrombosis and embolism; Z88.1 Allergy status to other antibiotic agents; Z88.8 Allergy status to other drugs, medicaments and biological substances; Z79.52 Long term (current) use of systemic steroids; Z79.899 Other long term (current) drug therapy; Z87.442 Personal history of urinary calculi; Z98.1 Arthrodesis status
CPT/HCPCS: 36415; 80048; 85025; 97110-GP; 97140-GP; 97161-GP; 97165-GO; A9270-GY; J7512

== ENCOUNTER 2021-05-03 12:23 | Inpatient (IN) | payer MEDICARE, OTHER ==
[2021-05-03] MEDS ORDERED: Polyethylene Glycol 3350 Powder 17 GM Packet PO PRN (17:17)
[2021-05-03] MEDS ORDERED: Acetaminophen 325 MG Tab PO PRN (17:17)
[2021-05-03] MEDS: Indomethacin 25 MG Cap PO SCH (19:49)
[2021-05-04] MEDS: Apixaban 2.5 MG Tab PO SCH ×2 (08:30→20:28)
[2021-05-04] MEDS: predniSONE 5 MG Tab PO SCH (08:31)
[2021-05-04] MEDS: Cholecalciferol (Vitamin D3) 25 MCG Tab PO SCH (08:31)
[2021-05-04] MEDS: Magnesium Oxide 400 MG Tab PO SCH (08:31)
[2021-05-04] MEDS: Hydrochlorothiazide 12.5 MG Cap PO SCH (08:32)
[2021-05-04] MEDS: amLODIPine 2.5 MG Tab PO SCH (08:33)
[2021-05-04] MEDS: glipiZIDE 5 MG Tab PO SCH (08:33)
[2021-05-04] MEDS: Lisinopril 10 MG Tab PO SCH (08:33)
[2021-05-04] MEDS: Indomethacin 25 MG Cap PO SCH ×2 (08:35→20:27)
[2021-05-04] MEDS: Calcium Carbonate 750 MG Tab.Chew PO SCH (08:36)
[2021-05-05] MEDS: predniSONE 5 MG Tab PO SCH (07:37)
[2021-05-05] MEDS: Hydrochlorothiazide 12.5 MG Cap PO SCH (07:38)
[2021-05-05] MEDS: Indomethacin 25 MG Cap PO SCH ×2 (07:38→19:46)
[2021-05-05] MEDS: glipiZIDE 5 MG Tab PO SCH (07:39)
[2021-05-05] MEDS: Apixaban 2.5 MG Tab PO SCH ×2 (07:39→19:46)
[2021-05-05] MEDS: Magnesium Oxide 400 MG Tab PO SCH (07:39)
[2021-05-05] MEDS: amLODIPine 2.5 MG Tab PO SCH (07:41)
[2021-05-05] MEDS: Lisinopril 10 MG Tab PO SCH (07:41)
[2021-05-05] MEDS: Calcium Carbonate 750 MG Tab.Chew PO SCH (08:19)
[2021-05-05] MEDS: Cholecalciferol (Vitamin D3) 25 MCG Tab PO SCH (08:19)
[2021-05-06] MEDS: Indomethacin 25 MG Cap PO SCH ×2 (07:53→20:26)
[2021-05-06] MEDS: predniSONE 5 MG Tab PO SCH (07:53)
[2021-05-06] MEDS: glipiZIDE 5 MG Tab PO SCH (07:54)
[2021-05-06] MEDS: Magnesium Oxide 400 MG Tab PO SCH (07:55)
[2021-05-06] MEDS: Hydrochlorothiazide 12.5 MG Cap PO SCH (07:55)
[2021-05-06] MEDS: Cholecalciferol (Vitamin D3) 25 MCG Tab PO SCH (07:55)
[2021-05-06] MEDS: Apixaban 2.5 MG Tab PO SCH ×2 (07:55→20:26)
[2021-05-06] MEDS: amLODIPine 2.5 MG Tab PO SCH (07:56)
[2021-05-06] MEDS: Lisinopril 10 MG Tab PO SCH (07:56)
[2021-05-06] MEDS: Calcium Carbonate 750 MG Tab.Chew PO SCH (07:57)
[2021-05-07] MEDS: Apixaban 2.5 MG Tab PO SCH ×2 (07:27→19:49)
[2021-05-07] MEDS: Hydrochlorothiazide 12.5 MG Cap PO SCH (07:28)
[2021-05-07] MEDS: Cholecalciferol (Vitamin D3) 25 MCG Tab PO SCH (07:28)
[2021-05-07] MEDS: predniSONE 5 MG Tab PO SCH (07:28)
[2021-05-07] MEDS: Indomethacin 25 MG Cap PO SCH ×2 (07:29→19:49)
[2021-05-07] MEDS: glipiZIDE 5 MG Tab PO SCH (07:30)
[2021-05-07] MEDS: amLODIPine 2.5 MG Tab PO SCH (07:30)
[2021-05-07] MEDS: Magnesium Oxide 400 MG Tab PO SCH (07:31)
[2021-05-07] MEDS: Calcium Carbonate 750 MG Tab.Chew PO SCH (07:31)
[2021-05-07] MEDS: Lisinopril 10 MG Tab PO SCH (07:31)
[2021-05-08] MEDS: Indomethacin 25 MG Cap PO SCH ×2 (07:20→19:36)
[2021-05-08] MEDS: glipiZIDE 5 MG Tab PO SCH (07:21)
[2021-05-08] MEDS: Hydrochlorothiazide 12.5 MG Cap PO SCH (07:21)
[2021-05-08] MEDS: Cholecalciferol (Vitamin D3) 25 MCG Tab PO SCH (07:21)
[2021-05-08] MEDS: Apixaban 2.5 MG Tab PO SCH ×2 (07:22→19:36)
[2021-05-08] MEDS: Magnesium Oxide 400 MG Tab PO SCH (07:22)
[2021-05-08] MEDS: Calcium Carbonate 750 MG Tab.Chew PO SCH (07:22)
[2021-05-08] MEDS: predniSONE 5 MG Tab PO SCH (07:22)
[2021-05-08] MEDS: Lisinopril 10 MG Tab PO SCH (07:23)
[2021-05-08] MEDS: amLODIPine 2.5 MG Tab PO SCH (07:23)
[2021-05-09] MEDS: Lisinopril 10 MG Tab PO SCH (07:47)
[2021-05-09] MEDS: amLODIPine 2.5 MG Tab PO SCH (07:47)
[2021-05-09] MEDS: glipiZIDE 5 MG Tab PO SCH (07:47)
[2021-05-09] MEDS: predniSONE 5 MG Tab PO SCH (07:48)
[2021-05-09] MEDS: Hydrochlorothiazide 12.5 MG Cap PO SCH (07:48)
[2021-05-09] MEDS: Calcium Carbonate 750 MG Tab.Chew PO SCH (07:48)
[2021-05-09] MEDS: Cholecalciferol (Vitamin D3) 25 MCG Tab PO SCH (07:48)
[2021-05-09] MEDS: Indomethacin 25 MG Cap PO SCH ×2 (07:48→19:40)
[2021-05-09] MEDS: Magnesium Oxide 400 MG Tab PO SCH (07:48)
[2021-05-09] MEDS: Apixaban 2.5 MG Tab PO SCH ×2 (07:48→19:41)
[2021-05-10] MEDS: Apixaban 2.5 MG Tab PO SCH ×2 (07:34→20:16)
[2021-05-10] MEDS: Indomethacin 25 MG Cap PO SCH ×2 (07:35→20:16)
[2021-05-10] MEDS: Magnesium Oxide 400 MG Tab PO SCH (07:35)
[2021-05-10] MEDS: Hydrochlorothiazide 12.5 MG Cap PO SCH (07:35)
[2021-05-10] MEDS: predniSONE 5 MG Tab PO SCH (07:35)
[2021-05-10] MEDS: Cholecalciferol (Vitamin D3) 25 MCG Tab PO SCH (07:35)
[2021-05-10] MEDS: glipiZIDE 5 MG Tab PO SCH (07:35)
[2021-05-10] MEDS: Calcium Carbonate 750 MG Tab.Chew PO SCH (07:36)
[2021-05-10] MEDS: amLODIPine 2.5 MG Tab PO SCH (07:37)
[2021-05-10] MEDS: Lisinopril 10 MG Tab PO SCH (07:37)
[2021-05-11 06:39] VITALS: BP 113/56; PULSE 64
[2021-05-11] MEDS: predniSONE 5 MG Tab PO SCH (07:37)
[2021-05-11] MEDS: Apixaban 2.5 MG Tab PO SCH (07:37)
[2021-05-11] MEDS: Cholecalciferol (Vitamin D3) 25 MCG Tab PO SCH (07:37)
[2021-05-11] MEDS: Hydrochlorothiazide 12.5 MG Cap PO SCH (07:37)
[2021-05-11] MEDS: glipiZIDE 5 MG Tab PO SCH (07:38)
[2021-05-11] MEDS: Calcium Carbonate 750 MG Tab.Chew PO SCH (07:38)
[2021-05-11] MEDS: Lisinopril 10 MG Tab PO SCH (07:39)
[2021-05-11] MEDS: Magnesium Oxide 400 MG Tab PO SCH (07:40)
[2021-05-11] MEDS: amLODIPine 2.5 MG Tab PO SCH (07:40)
[2021-05-11] MEDS ORDERED: Indomethacin 25 MG Cap PO ONE (09:15)
[2021-05-11] MEDS: Indomethacin 25 MG Cap PO SCH ×2 (09:16→09:35)
== END 2021-05-11 17:50 | disposition home or self-care (01) | DRG 560 ==
LOC: VM.MS 15:26
PROVIDERS: ADMIT Internal Medicine; ATTEND Internal Medicine
DX: S82.002D Unspecified fracture of left patella, subsequent encounter for closed fracture with routine healing (principal); S82.001K Unspecified fracture of right patella, subsequent encounter for closed fracture with nonunion; K51.90 Ulcerative colitis, unspecified, without complications; M45.9 Ankylosing spondylitis of unspecified sites in spine; I10 Essential (primary) hypertension; E66.9 Obesity, unspecified; M81.0 Age-related osteoporosis without current pathological fracture; Z20.822 Contact with and (suspected) exposure to COVID-19; E78.1 Pure hyperglyceridemia; G47.9 Sleep disorder, unspecified; D50.9 Iron deficiency anemia, unspecified; E78.5 Hyperlipidemia, unspecified; G89.29 Other chronic pain; E09.9 Drug or chemical induced diabetes mellitus without complications; T38.0X5A Adverse effect of glucocorticoids and synthetic analogues, initial encounter; M54.9 Dorsalgia, unspecified; Z96.653 Presence of artificial knee joint, bilateral; G47.00 Insomnia, unspecified; G62.9 Polyneuropathy, unspecified; Z79.01 Long term (current) use of anticoagulants; Z88.0 Allergy status to penicillin; Z87.442 Personal history of urinary calculi; Z88.8 Allergy status to other drugs, medicaments and biological substances; Z86.718 Personal history of other venous thrombosis and embolism; Z88.1 Allergy status to other antibiotic agents; Z98.49 Cataract extraction status, unspecified eye; Z98.1 Arthrodesis status
CPT/HCPCS: 82947; 97110-GP; 97116-GP; 97161-GP; 97165-GO; 97530-GP; A9270-GY; J7512

== ENCOUNTER 2021-09-16 14:24 | Inpatient (IN) | payer MEDICARE, OTHER ==
[2021-09-16] MEDS ORDERED: Polyethylene Glycol 3350 Powder 17 GM Packet PO PRN (17:15)
[2021-09-16] MEDS ORDERED: Non-Formulary Medication 1 Each (Dextrose [Glucose] 4 GM Tab.Chew) PO PRN (17:15)
[2021-09-16] MEDS: Apixaban 2.5 MG Tab PO SCH (20:58)
[2021-09-16] MEDS: Cefuroxime 250 MG Tab PO SCH (20:59)
[2021-09-16] MEDS: Acetaminophen 325 MG Tab PO PRN (20:59)
[2021-09-16] MEDS ORDERED: Non-Formulary Medication 1 Each (Apixaban [Eliquis] 5 MG Tablet) PO SCH (21:00)
[2021-09-16] MEDS ORDERED: Apixaban 2.5 MG Tab PO SCH (21:00)
[2021-09-17] MEDS: Potassium Chloride 20 MEQ Tab.ER PO SCH ×2 (07:54→08:11)
[2021-09-17] MEDS: Lisinopril 10 MG Tab PO SCH (08:03)
[2021-09-17] MEDS: Apixaban 2.5 MG Tab PO SCH ×2 (08:04→19:59)
[2021-09-17] MEDS: glipiZIDE 5 MG Tab PO SCH (08:06)
[2021-09-17] MEDS: Magnesium Oxide 400 MG Tab PO SCH (08:07)
[2021-09-17] MEDS: sulfaSALAzine 500 MG Tab.EC PO SCH (08:09)
[2021-09-17] MEDS: Bumetanide 1 MG Tab PO SCH (08:09)
[2021-09-17] MEDS: predniSONE 20 MG Tab PO SCH (08:10)
[2021-09-17] MEDS: Cefuroxime 250 MG Tab PO SCH ×2 (08:10→20:00)
[2021-09-17] MEDS: Cholecalciferol (Vitamin D3) 25 MCG Tab PO SCH (08:10)
[2021-09-17] MEDS: Calcium Carbonate 750 MG Tab.Chew PO SCH (08:11)
[2021-09-17] MEDS: Insulin Lispro 100 Units/ML 3 ML Vial SUBCUT SCH ×3 (09:00→17:47)
[2021-09-17] MEDS ORDERED: Insulin Lispro 100 Units/ML 3 ML Vial SUBCUT SCH (09:00)
[2021-09-17] MEDS: Potassium Chloride 10 MEQ Tab.ER PO SCH ×3 (12:12→19:59)
[2021-09-17] MEDS: Acetaminophen 325 MG Tab PO PRN (20:00)
[2021-09-18] MEDS: sulfaSALAzine 500 MG Tab.EC PO SCH (08:25)
[2021-09-18] MEDS: Potassium Chloride 20 MEQ Tab.ER PO SCH ×2 (08:25→18:13)
[2021-09-18] MEDS: Cefuroxime 250 MG Tab PO SCH ×2 (08:25→20:07)
[2021-09-18] MEDS: predniSONE 20 MG Tab PO SCH (08:26)
[2021-09-18] MEDS: glipiZIDE 5 MG Tab PO SCH (08:26)
[2021-09-18] MEDS: Cholecalciferol (Vitamin D3) 25 MCG Tab PO SCH (08:26)
[2021-09-18] MEDS: Bumetanide 1 MG Tab PO SCH (08:27)
[2021-09-18] MEDS: Apixaban 2.5 MG Tab PO SCH ×2 (08:27→20:06)
[2021-09-18] MEDS: Lisinopril 10 MG Tab PO SCH (08:28)
[2021-09-18] MEDS: Magnesium Oxide 400 MG Tab PO SCH (08:28)
[2021-09-18 08:32] LABS: ANION GAP 11.2 mmol/L (5-15)
[2021-09-18] MEDS: Calcium Carbonate 750 MG Tab.Chew PO SCH (08:33)
[2021-09-18] MEDS: Insulin Lispro 100 Units/ML 3 ML Vial SUBCUT SCH ×3 (08:37→18:13)
[2021-09-18] MEDS: LORazepam 0.5 MG Tab PO PRN (20:06)
[2021-09-18] MEDS: Acetaminophen 325 MG Tab PO PRN (20:07)
[2021-09-19] MEDS: Bumetanide 1 MG Tab PO SCH ×2 (08:05→09:51)
[2021-09-19] MEDS: Lisinopril 10 MG Tab PO SCH (08:06)
[2021-09-19] MEDS: Cholecalciferol (Vitamin D3) 25 MCG Tab PO SCH (08:07)
[2021-09-19] MEDS: sulfaSALAzine 500 MG Tab.EC PO SCH (08:07)
[2021-09-19] MEDS: Cefuroxime 250 MG Tab PO SCH ×2 (08:07→21:15)
[2021-09-19] MEDS: glipiZIDE 5 MG Tab PO SCH (08:07)
[2021-09-19] MEDS: predniSONE 20 MG Tab PO SCH (08:07)
[2021-09-19] MEDS: Potassium Chloride 20 MEQ Tab.ER PO SCH ×2 (08:07→18:44)
[2021-09-19] MEDS: Apixaban 2.5 MG Tab PO SCH ×2 (08:07→21:28)
[2021-09-19] MEDS: Magnesium Oxide 400 MG Tab PO SCH (08:08)
[2021-09-19] MEDS: Calcium Carbonate 750 MG Tab.Chew PO SCH (08:10)
[2021-09-19] MEDS: Insulin Lispro 100 Units/ML 3 ML Vial SUBCUT SCH ×3 (08:14→18:01)
[2021-09-19] MEDS: Acetaminophen 325 MG Tab PO PRN (21:15)
[2021-09-19] MEDS: LORazepam 0.5 MG Tab PO PRN (21:16)
[2021-09-20] MEDS: Lisinopril 10 MG Tab PO SCH (08:48)
[2021-09-20] MEDS: glipiZIDE 5 MG Tab PO SCH (08:49)
[2021-09-20] MEDS: Magnesium Oxide 400 MG Tab PO SCH (08:51)
[2021-09-20] MEDS: Cefuroxime 250 MG Tab PO SCH (08:52)
[2021-09-20] MEDS: Cholecalciferol (Vitamin D3) 25 MCG Tab PO SCH (08:52)
[2021-09-20] MEDS: predniSONE 20 MG Tab PO SCH (08:53)
[2021-09-20] MEDS: sulfaSALAzine 500 MG Tab.EC PO SCH (08:53)
[2021-09-20] MEDS: Apixaban 2.5 MG Tab PO SCH ×2 (08:53→22:12)
[2021-09-20] MEDS: Insulin Lispro 100 Units/ML 3 ML Vial SUBCUT SCH ×2 (08:57→12:50)
[2021-09-20] MEDS ORDERED: Potassium Chloride 20 MEQ Tab.ER PO SCH (09:00)
[2021-09-20] MEDS: Calcium Carbonate 750 MG Tab.Chew PO SCH (09:30)
[2021-09-20] MEDS: Bumetanide 1 MG Tab PO SCH (09:39)
[2021-09-20] MEDS: valACYclovir 1,000 MG Tab PO SCH ×2 (11:37→22:12)
[2021-09-20] MEDS: Hydrochlorothiazide 25 MG Tab PO SCH (11:38)
[2021-09-21] MEDS: Potassium Chloride 20 MEQ Tab.ER PO SCH (08:45)
[2021-09-21] MEDS: predniSONE 20 MG Tab PO SCH (08:45)
[2021-09-21] MEDS: Magnesium Oxide 400 MG Tab PO SCH (08:46)
[2021-09-21] MEDS: Apixaban 2.5 MG Tab PO SCH ×2 (08:47→21:27)
[2021-09-21] MEDS: glipiZIDE 5 MG Tab PO SCH (08:47)
[2021-09-21] MEDS: sulfaSALAzine 500 MG Tab.EC PO SCH (08:47)
[2021-09-21] MEDS: Cholecalciferol (Vitamin D3) 25 MCG Tab PO SCH (08:48)
[2021-09-21] MEDS: Hydrochlorothiazide 25 MG Tab PO SCH (08:48)
[2021-09-21] MEDS: Lisinopril 10 MG Tab PO SCH (08:49)
[2021-09-21] MEDS: Calcium Carbonate 750 MG Tab.Chew PO SCH (08:52)
[2021-09-21] MEDS: Acetaminophen 325 MG Tab PO PRN (21:27)
[2021-09-21] MEDS: LORazepam 0.5 MG Tab PO PRN (21:28)
[2021-09-22] MEDS: sulfaSALAzine 500 MG Tab.EC PO SCH (08:17)
[2021-09-22] MEDS: Magnesium Oxide 400 MG Tab PO SCH (08:17)
[2021-09-22] MEDS: glipiZIDE 5 MG Tab PO SCH (08:18)
[2021-09-22] MEDS: Cholecalciferol (Vitamin D3) 25 MCG Tab PO SCH (08:18)
[2021-09-22] MEDS: Potassium Chloride 20 MEQ Tab.ER PO SCH (08:18)
[2021-09-22] MEDS: predniSONE 5 MG Tab PO SCH (08:19)
[2021-09-22] MEDS: Hydrochlorothiazide 25 MG Tab PO SCH (08:19)
[2021-09-22] MEDS: Apixaban 2.5 MG Tab PO SCH ×2 (08:19→20:32)
[2021-09-22] MEDS: Lisinopril 10 MG Tab PO SCH (08:20)
[2021-09-22] MEDS: Calcium Carbonate 750 MG Tab.Chew PO SCH (09:00)
[2021-09-22] MEDS: LORazepam 0.5 MG Tab PO PRN (20:30)
[2021-09-22] MEDS: Acetaminophen 325 MG Tab PO PRN (20:31)
[2021-09-23 06:37] VITALS: BP 123/64; PULSE 90
[2021-09-23 07:23] LABS: ANION GAP 13.9 mmol/L (5-15)
[2021-09-23] MEDS: predniSONE 5 MG Tab PO SCH (08:01)
[2021-09-23] MEDS: Apixaban 2.5 MG Tab PO SCH (08:02)
[2021-09-23] MEDS: Hydrochlorothiazide 25 MG Tab PO SCH (08:02)
[2021-09-23] MEDS: sulfaSALAzine 500 MG Tab.EC PO SCH (08:03)
[2021-09-23] MEDS: Potassium Chloride 20 MEQ Tab.ER PO SCH (08:03)
[2021-09-23] MEDS: Cholecalciferol (Vitamin D3) 25 MCG Tab PO SCH (08:04)
[2021-09-23] MEDS: Lisinopril 10 MG Tab PO SCH (08:05)
[2021-09-23] MEDS: glipiZIDE 5 MG Tab PO SCH (08:06)
[2021-09-23] MEDS: Magnesium Oxide 400 MG Tab PO SCH (08:07)
[2021-09-23] MEDS: Calcium Carbonate 750 MG Tab.Chew PO SCH (08:08)
== END 2021-09-23 12:50 | disposition home or self-care (01) | DRG 690 ==
LOC: VM.MS 16:47
PROVIDERS: ADMIT Internal Medicine; ATTEND Internal Medicine
DX: N39.0 Urinary tract infection, site not specified (principal); I82.431 Acute embolism and thrombosis of right popliteal vein; E27.3 Drug-induced adrenocortical insufficiency; E46 Unspecified protein-calorie malnutrition; I10 Essential (primary) hypertension; E87.6 Hypokalemia; R31.9 Hematuria, unspecified; N28.1 Cyst of kidney, acquired; E11.65 Type 2 diabetes mellitus with hyperglycemia; T38.0X5A Adverse effect of glucocorticoids and synthetic analogues, initial encounter; M45.9 Ankylosing spondylitis of unspecified sites in spine; E66.9 Obesity, unspecified; B00.1 Herpesviral vesicular dermatitis; R53.1 Weakness; E78.5 Hyperlipidemia, unspecified; D50.9 Iron deficiency anemia, unspecified; N40.0 Benign prostatic hyperplasia without lower urinary tract symptoms; G47.00 Insomnia, unspecified; M19.90 Unspecified osteoarthritis, unspecified site; I71.2 Thoracic aortic aneurysm, without rupture; Z68.27 Body mass index [BMI] 27.0-27.9, adult; Z88.0 Allergy status to penicillin; Z88.1 Allergy status to other antibiotic agents; Z79.899 Other long term (current) drug therapy
CPT/HCPCS: 36415; 51798; 80048; 80069; 82947; 83735; 84132; 85025; 85652; 86140; 97110-GP; 97116-GP; 97161-GP; A9270-GY; J1815-GY; J7512

== ENCOUNTER 2021-10-25 14:36 | Inpatient (IN) | payer MEDICARE, OTHER ==
[2021-10-25] MEDS: cefTRIAXone 2 GM Vial IVPUSH SCH (18:24)
[2021-10-25] MEDS ORDERED: Camphor/Menthol 0.5-0.5% Lotion 222 ML Bottle TOP PRN (21:10)
[2021-10-25] MEDS ORDERED: Bisacodyl 10 MG Supp RECTAL PRN (21:10)
[2021-10-25] MEDS ORDERED: Sodium Chloride 0.65% Nasal Spray 45 ML Bottle NASBOTH PRN (21:10)
[2021-10-25] MEDS ORDERED: Sodium Chloride 0.9% 10 ML Syringe FLUSH PRN (21:10)
[2021-10-25] MEDS ORDERED: Heparin Sodium 100 Units/ML 3 ML Syringe FLUSH PRN (21:10)
[2021-10-25] MEDS ORDERED: Polyethylene Glycol 3350 Powder 17 GM Packet PO PRN (21:10)
[2021-10-25] MEDS ORDERED: hydrOXYzine HCl 25 MG Tab PO PRN (21:10)
[2021-10-25] MEDS: HYDROmorphone 2 MG Tab PO PRN (22:32)
[2021-10-26] MEDS: Acetaminophen 325 MG Tab PO PRN ×2 (00:40→09:11)
[2021-10-26] MEDS: Melatonin 3 MG Tab PO PRN (00:41)
[2021-10-26] MEDS: Omeprazole 20 MG Cap.CR PO SCH ×2 (06:02→17:35)
[2021-10-26] MEDS: HYDROmorphone 2 MG Tab PO PRN ×4 (07:35→20:09)
[2021-10-26] MEDS: predniSONE 5 MG Tab PO SCH (08:58)
[2021-10-26] MEDS: Apixaban 2.5 MG Tab PO SCH ×2 (08:58→20:09)
[2021-10-26] MEDS: Magnesium Oxide 400 MG Tab PO SCH (08:58)
[2021-10-26] MEDS: Montelukast 10 MG Tab PO SCH (08:59)
[2021-10-26] MEDS: Hydrochlorothiazide 12.5 MG Cap PO SCH (08:59)
[2021-10-26] MEDS: Potassium Chloride 20 MEQ Tab.ER PO SCH (08:59)
[2021-10-26] MEDS: sulfaSALAzine 500 MG Tab.EC PO SCH (08:59)
[2021-10-26] MEDS: Cholecalciferol (Vitamin D3) 25 MCG Tab PO SCH (08:59)
[2021-10-26] MEDS: Calcium Carbonate 750 MG Tab.Chew PO SCH (09:00)
[2021-10-26] MEDS: cefTRIAXone 2 GM Vial IVPUSH SCH ×2 (11:17→17:35)
[2021-10-27] MEDS: Omeprazole 20 MG Cap.CR PO SCH ×2 (06:16→17:48)
[2021-10-27] MEDS: HYDROmorphone 2 MG Tab PO PRN ×3 (06:18→19:07)
[2021-10-27] MEDS: Apixaban 2.5 MG Tab PO SCH ×2 (08:43→21:07)
[2021-10-27] MEDS: sulfaSALAzine 500 MG Tab.EC PO SCH (08:43)
[2021-10-27] MEDS: Potassium Chloride 20 MEQ Tab.ER PO SCH (08:43)
[2021-10-27] MEDS: Hydrochlorothiazide 12.5 MG Cap PO SCH (08:43)
[2021-10-27] MEDS: Magnesium Oxide 400 MG Tab PO SCH (08:44)
[2021-10-27] MEDS: Montelukast 10 MG Tab PO SCH (08:44)
[2021-10-27] MEDS: predniSONE 5 MG Tab PO SCH (08:44)
[2021-10-27] MEDS: Cholecalciferol (Vitamin D3) 25 MCG Tab PO SCH (08:44)
[2021-10-27] MEDS: Calcium Carbonate 750 MG Tab.Chew PO SCH (08:48)
[2021-10-27] MEDS: cefTRIAXone 2 GM Vial IVPUSH SCH (17:47)
[2021-10-27] MEDS: Melatonin 3 MG Tab PO PRN (21:10)
[2021-10-27] MEDS: Acetaminophen 325 MG Tab PO PRN (21:11)
[2021-10-28] MEDS: HYDROmorphone 2 MG Tab PO PRN ×4 (00:43→23:05)
[2021-10-28] MEDS: Omeprazole 20 MG Cap.CR PO SCH ×2 (06:36→16:26)
[2021-10-28] MEDS: Apixaban 2.5 MG Tab PO SCH ×2 (08:04→20:56)
[2021-10-28] MEDS: predniSONE 5 MG Tab PO SCH (08:04)
[2021-10-28] MEDS: Potassium Chloride 20 MEQ Tab.ER PO SCH (08:04)
[2021-10-28] MEDS: Montelukast 10 MG Tab PO SCH (08:05)
[2021-10-28] MEDS: Cholecalciferol (Vitamin D3) 25 MCG Tab PO SCH (08:05)
[2021-10-28] MEDS: sulfaSALAzine 500 MG Tab.EC PO SCH (08:06)
[2021-10-28] MEDS: Hydrochlorothiazide 12.5 MG Cap PO SCH (08:06)
[2021-10-28] MEDS: Calcium Carbonate 750 MG Tab.Chew PO SCH (08:07)
[2021-10-28] MEDS: Magnesium Oxide 400 MG Tab PO SCH (08:07)
[2021-10-28] MEDS ORDERED: 50% Dextrose in Water 50 ML Syringe IVPUSH PRN (10:42)
[2021-10-28] MEDS ORDERED: Glucagon,Human Recombinant 1 MG Vial IM PRN (10:42)
[2021-10-28] MEDS: Insulin Glarg,Human.Rec.Analog 100 Unit/ML SUBCUT SCH (11:17)
[2021-10-28] MEDS: cefTRIAXone 2 GM Vial IVPUSH SCH (17:32)
[2021-10-28] MEDS: LORazepam 0.5 MG Tab PO PRN (20:55)
[2021-10-28] MEDS: Melatonin 3 MG Tab PO PRN (20:56)
[2021-10-28] MEDS: Acetaminophen 325 MG Tab PO PRN (20:57)
[2021-10-29] MEDS: Omeprazole 20 MG Cap.CR PO SCH ×2 (06:16→17:12)
[2021-10-29] MEDS: HYDROmorphone 2 MG Tab PO PRN ×4 (06:20→23:40)
[2021-10-29] MEDS: predniSONE 5 MG Tab PO SCH (08:55)
[2021-10-29] MEDS: Apixaban 2.5 MG Tab PO SCH ×2 (08:57→20:35)
[2021-10-29] MEDS: sulfaSALAzine 500 MG Tab.EC PO SCH (08:58)
[2021-10-29] MEDS: Hydrochlorothiazide 12.5 MG Cap PO SCH (08:58)
[2021-10-29] MEDS: Potassium Chloride 20 MEQ Tab.ER PO SCH (08:58)
[2021-10-29] MEDS: Montelukast 10 MG Tab PO SCH (08:59)
[2021-10-29] MEDS: Magnesium Oxide 400 MG Tab PO SCH (08:59)
[2021-10-29] MEDS: Cholecalciferol (Vitamin D3) 25 MCG Tab PO SCH (08:59)
[2021-10-29] MEDS: Calcium Carbonate 750 MG Tab.Chew PO SCH (08:59)
[2021-10-29] MEDS: Insulin Glarg,Human.Rec.Analog 100 Unit/ML SUBCUT SCH (09:00)
[2021-10-29] MEDS: cefTRIAXone 2 GM Vial IVPUSH SCH (17:11)
[2021-10-29] MEDS: Melatonin 3 MG Tab PO PRN (20:36)
[2021-10-29] MEDS: LORazepam 0.5 MG Tab PO PRN (20:36)
[2021-10-30] MEDS: HYDROmorphone 2 MG Tab PO PRN ×3 (05:58→19:37)
[2021-10-30] MEDS: Omeprazole 20 MG Cap.CR PO SCH ×2 (06:04→18:02)
[2021-10-30] MEDS: Apixaban 2.5 MG Tab PO SCH ×2 (09:51→20:00)
[2021-10-30] MEDS: predniSONE 5 MG Tab PO SCH (09:52)
[2021-10-30] MEDS: Magnesium Oxide 400 MG Tab PO SCH (09:52)
[2021-10-30] MEDS: Cholecalciferol (Vitamin D3) 25 MCG Tab PO SCH (09:52)
[2021-10-30] MEDS: sulfaSALAzine 500 MG Tab.EC PO SCH (09:52)
[2021-10-30] MEDS: Potassium Chloride 20 MEQ Tab.ER PO SCH (09:53)
[2021-10-30] MEDS: Hydrochlorothiazide 12.5 MG Cap PO SCH (09:53)
[2021-10-30] MEDS: Montelukast 10 MG Tab PO SCH (09:53)
[2021-10-30] MEDS: Insulin Glarg,Human.Rec.Analog 100 Unit/ML SUBCUT SCH (09:54)
[2021-10-30] MEDS: Calcium Carbonate 750 MG Tab.Chew PO SCH (09:55)
[2021-10-30] MEDS: cefTRIAXone 2 GM Vial IVPUSH SCH (18:01)
[2021-10-30] MEDS: Melatonin 3 MG Tab PO PRN (19:58)
[2021-10-30] MEDS: LORazepam 0.5 MG Tab PO PRN (20:00)
[2021-10-31] MEDS: HYDROmorphone 2 MG Tab PO PRN (01:28)
[2021-10-31] MEDS: Omeprazole 20 MG Cap.CR PO SCH ×2 (06:08→16:53)
[2021-10-31] MEDS: Montelukast 10 MG Tab PO SCH (10:13)
[2021-10-31] MEDS: Potassium Chloride 20 MEQ Tab.ER PO SCH (10:13)
[2021-10-31] MEDS: Cholecalciferol (Vitamin D3) 25 MCG Tab PO SCH (10:13)
[2021-10-31] MEDS: Magnesium Oxide 400 MG Tab PO SCH (10:13)
[2021-10-31] MEDS: Apixaban 2.5 MG Tab PO SCH ×2 (10:13→20:44)
[2021-10-31] MEDS: Calcium Carbonate 750 MG Tab.Chew PO SCH (10:14)
[2021-10-31] MEDS: Hydrochlorothiazide 12.5 MG Cap PO SCH (10:14)
[2021-10-31] MEDS: sulfaSALAzine 500 MG Tab.EC PO SCH (10:14)
[2021-10-31] MEDS: predniSONE 5 MG Tab PO SCH (10:14)
[2021-10-31] MEDS: Insulin Glarg,Human.Rec.Analog 100 Unit/ML SUBCUT SCH (10:15)
[2021-10-31] MEDS: Acetaminophen 325 MG Tab PO PRN ×2 (13:59→20:45)
[2021-10-31] MEDS: cefTRIAXone 2 GM Vial IVPUSH SCH (18:43)
[2021-10-31] MEDS: LORazepam 0.5 MG Tab PO PRN (20:45)
[2021-10-31] MEDS: Melatonin 3 MG Tab PO PRN (20:46)
[2021-11-01] MEDS: Omeprazole 20 MG Cap.CR PO SCH ×2 (06:09→17:32)
[2021-11-01 09:01] LABS: ANION GAP 10.9 mmol/L (5-15)
[2021-11-01] MEDS: sulfaSALAzine 500 MG Tab.EC PO SCH (09:35)
[2021-11-01] MEDS: Hydrochlorothiazide 12.5 MG Cap PO SCH (09:35)
[2021-11-01] MEDS: Magnesium Oxide 400 MG Tab PO SCH (09:35)
[2021-11-01] MEDS: Montelukast 10 MG Tab PO SCH (09:35)
[2021-11-01] MEDS: Cholecalciferol (Vitamin D3) 25 MCG Tab PO SCH (09:35)
[2021-11-01] MEDS: Apixaban 2.5 MG Tab PO SCH ×2 (09:36→20:11)
[2021-11-01] MEDS: predniSONE 5 MG Tab PO SCH (09:36)
[2021-11-01] MEDS: Calcium Carbonate 750 MG Tab.Chew PO SCH (09:36)
[2021-11-01] MEDS: Insulin Glarg,Human.Rec.Analog 100 Unit/ML SUBCUT SCH (09:37)
[2021-11-01] MEDS: Potassium Chloride 20 MEQ Tab.ER PO SCH ×4 (10:01→20:11)
[2021-11-01] MEDS: Acetaminophen 325 MG Tab PO PRN ×2 (13:19→20:10)
[2021-11-01] MEDS: HYDROmorphone 2 MG Tab PO PRN (15:42)
[2021-11-01] MEDS: cefTRIAXone 2 GM Vial IVPUSH SCH (17:33)
[2021-11-01] MEDS: LORazepam 0.5 MG Tab PO PRN (20:12)
[2021-11-01] MEDS: Melatonin 3 MG Tab PO PRN (20:12)
[2021-11-02] MEDS: Omeprazole 20 MG Cap.CR PO SCH ×2 (06:11→17:01)
[2021-11-02] MEDS: Cholecalciferol (Vitamin D3) 25 MCG Tab PO SCH (08:48)
[2021-11-02] MEDS: Magnesium Oxide 400 MG Tab PO SCH (08:48)
[2021-11-02] MEDS: Montelukast 10 MG Tab PO SCH (08:48)
[2021-11-02] MEDS: Acetaminophen 325 MG Tab PO PRN ×2 (08:48→20:51)
[2021-11-02] MEDS: sulfaSALAzine 500 MG Tab.EC PO SCH (08:48)
[2021-11-02] MEDS: predniSONE 5 MG Tab PO SCH (08:48)
[2021-11-02] MEDS: Potassium Chloride 20 MEQ Tab.ER PO SCH ×3 (08:49→20:51)
[2021-11-02] MEDS: Hydrochlorothiazide 12.5 MG Cap PO SCH (08:49)
[2021-11-02] MEDS: Apixaban 2.5 MG Tab PO SCH ×2 (08:49→20:50)
[2021-11-02] MEDS: Calcium Carbonate 750 MG Tab.Chew PO SCH (08:50)
[2021-11-02] MEDS: Insulin Glarg,Human.Rec.Analog 100 Unit/ML SUBCUT SCH (08:53)
[2021-11-02] MEDS: cefTRIAXone 2 GM Vial IVPUSH SCH (17:40)
[2021-11-02] MEDS: Melatonin 3 MG Tab PO PRN (20:50)
[2021-11-02] MEDS: LORazepam 0.5 MG Tab PO PRN (20:51)
[2021-11-03] MEDS: Omeprazole 20 MG Cap.CR PO SCH ×2 (06:19→17:33)
[2021-11-03 06:57] LABS: ANION GAP 13.3 mmol/L (5-15)
[2021-11-03] MEDS: Apixaban 2.5 MG Tab PO SCH ×2 (08:43→20:36)
[2021-11-03] MEDS: sulfaSALAzine 500 MG Tab.EC PO SCH (08:43)
[2021-11-03] MEDS: predniSONE 5 MG Tab PO SCH (08:43)
[2021-11-03] MEDS: Hydrochlorothiazide 12.5 MG Cap PO SCH (08:44)
[2021-11-03] MEDS: Cholecalciferol (Vitamin D3) 25 MCG Tab PO SCH (08:44)
[2021-11-03] MEDS: Magnesium Oxide 400 MG Tab PO SCH (08:44)
[2021-11-03] MEDS: Calcium Carbonate 750 MG Tab.Chew PO SCH (08:44)
[2021-11-03] MEDS: Potassium Chloride 20 MEQ Tab.ER PO SCH ×2 (08:44→20:36)
[2021-11-03] MEDS: Montelukast 10 MG Tab PO SCH (08:44)
[2021-11-03] MEDS: Insulin Glarg,Human.Rec.Analog 100 Unit/ML SUBCUT SCH (08:45)
[2021-11-03] MEDS ORDERED: Potassium Chloride 20 MEQ Tab.ER PO SCH (09:00)
[2021-11-03] MEDS: Acetaminophen 325 MG Tab PO PRN ×2 (09:53→20:37)
[2021-11-03] MEDS: cefTRIAXone 2 GM Vial IVPUSH SCH (17:34)
[2021-11-03] MEDS: Melatonin 3 MG Tab PO PRN (20:36)
[2021-11-03] MEDS: LORazepam 0.5 MG Tab PO PRN (20:37)
[2021-11-04] MEDS: Omeprazole 20 MG Cap.CR PO SCH ×2 (06:11→18:35)
[2021-11-04] MEDS: sulfaSALAzine 500 MG Tab.EC PO SCH (08:57)
[2021-11-04] MEDS: Magnesium Oxide 400 MG Tab PO SCH (08:57)
[2021-11-04] MEDS: Potassium Chloride 20 MEQ Tab.ER PO SCH ×2 (08:57→20:23)
[2021-11-04] MEDS: Cholecalciferol (Vitamin D3) 25 MCG Tab PO SCH (08:58)
[2021-11-04] MEDS: Apixaban 2.5 MG Tab PO SCH ×2 (08:58→20:23)
[2021-11-04] MEDS: predniSONE 5 MG Tab PO SCH (08:58)
[2021-11-04] MEDS: Montelukast 10 MG Tab PO SCH (08:58)
[2021-11-04] MEDS: Hydrochlorothiazide 12.5 MG Cap PO SCH (08:58)
[2021-11-04] MEDS: Insulin Glarg,Human.Rec.Analog 100 Unit/ML SUBCUT SCH (08:59)
[2021-11-04] MEDS: Calcium Carbonate 750 MG Tab.Chew PO SCH (09:01)
[2021-11-04] MEDS: Acetaminophen 325 MG Tab PO PRN ×2 (13:57→20:24)
[2021-11-04] MEDS: cefTRIAXone 2 GM Vial IVPUSH SCH (18:35)
[2021-11-04] MEDS: LORazepam 0.5 MG Tab PO PRN (20:23)
[2021-11-04] MEDS: Melatonin 3 MG Tab PO PRN (20:23)
[2021-11-05] MEDS: Omeprazole 20 MG Cap.CR PO SCH ×2 (06:07→17:18)
[2021-11-05] MEDS: Insulin Glarg,Human.Rec.Analog 100 Unit/ML SUBCUT SCH (09:10)
[2021-11-05] MEDS: Calcium Carbonate 750 MG Tab.Chew PO SCH (09:12)
[2021-11-05] MEDS: Hydrochlorothiazide 12.5 MG Cap PO SCH (09:12)
[2021-11-05] MEDS: Montelukast 10 MG Tab PO SCH (09:12)
[2021-11-05] MEDS: predniSONE 5 MG Tab PO SCH (09:13)
[2021-11-05] MEDS: Magnesium Oxide 400 MG Tab PO SCH (09:13)
[2021-11-05] MEDS: Cholecalciferol (Vitamin D3) 25 MCG Tab PO SCH (09:13)
[2021-11-05] MEDS: Potassium Chloride 20 MEQ Tab.ER PO SCH ×2 (09:13→20:43)
[2021-11-05] MEDS: sulfaSALAzine 500 MG Tab.EC PO SCH (09:13)
[2021-11-05] MEDS: Apixaban 2.5 MG Tab PO SCH ×2 (09:13→20:43)
[2021-11-05] MEDS: Acetaminophen 325 MG Tab PO PRN ×2 (13:01→20:42)
[2021-11-05] MEDS: cefTRIAXone 2 GM Vial IVPUSH SCH (17:17)
[2021-11-05] MEDS: LORazepam 0.5 MG Tab PO PRN (20:43)
[2021-11-05] MEDS: Melatonin 3 MG Tab PO PRN (20:43)
[2021-11-06] MEDS: Omeprazole 20 MG Cap.CR PO SCH ×2 (06:54→17:29)
[2021-11-06] MEDS: Insulin Glarg,Human.Rec.Analog 100 Unit/ML SUBCUT SCH (09:11)
[2021-11-06] MEDS: Calcium Carbonate 750 MG Tab.Chew PO SCH (09:13)
[2021-11-06] MEDS: Apixaban 2.5 MG Tab PO SCH ×2 (09:14→21:17)
[2021-11-06] MEDS: sulfaSALAzine 500 MG Tab.EC PO SCH (09:14)
[2021-11-06] MEDS: Hydrochlorothiazide 12.5 MG Cap PO SCH (09:14)
[2021-11-06] MEDS: Potassium Chloride 20 MEQ Tab.ER PO SCH ×2 (09:14→21:16)
[2021-11-06] MEDS: predniSONE 5 MG Tab PO SCH (09:14)
[2021-11-06] MEDS: Montelukast 10 MG Tab PO SCH (09:15)
[2021-11-06] MEDS: Magnesium Oxide 400 MG Tab PO SCH (09:15)
[2021-11-06] MEDS: Cholecalciferol (Vitamin D3) 25 MCG Tab PO SCH (09:15)
[2021-11-06] MEDS: cefTRIAXone 2 GM Vial IVPUSH SCH (17:29)
[2021-11-06] MEDS: Melatonin 3 MG Tab PO PRN (21:17)
[2021-11-06] MEDS: Acetaminophen 325 MG Tab PO PRN (21:18)
[2021-11-06] MEDS: LORazepam 0.5 MG Tab PO PRN (21:18)
[2021-11-07] MEDS: Omeprazole 20 MG Cap.CR PO SCH ×2 (06:33→16:27)
[2021-11-07] MEDS: Cholecalciferol (Vitamin D3) 25 MCG Tab PO SCH (08:40)
[2021-11-07] MEDS: Magnesium Oxide 400 MG Tab PO SCH (08:40)
[2021-11-07] MEDS: Apixaban 2.5 MG Tab PO SCH ×2 (08:40→21:02)
[2021-11-07] MEDS: Hydrochlorothiazide 12.5 MG Cap PO SCH (08:40)
[2021-11-07] MEDS: Montelukast 10 MG Tab PO SCH (08:41)
[2021-11-07] MEDS: sulfaSALAzine 500 MG Tab.EC PO SCH (08:41)
[2021-11-07] MEDS: predniSONE 5 MG Tab PO SCH (08:41)
[2021-11-07] MEDS: Potassium Chloride 20 MEQ Tab.ER PO SCH ×2 (08:41→21:02)
[2021-11-07] MEDS: Calcium Carbonate 750 MG Tab.Chew PO SCH (08:42)
[2021-11-07] MEDS: Insulin Glarg,Human.Rec.Analog 100 Unit/ML SUBCUT SCH (08:42)
[2021-11-07] MEDS: cefTRIAXone 2 GM Vial IVPUSH SCH (17:15)
[2021-11-07] MEDS: Acetaminophen 325 MG Tab PO PRN (21:03)
[2021-11-07] MEDS: Melatonin 3 MG Tab PO PRN (21:03)
[2021-11-07] MEDS: LORazepam 0.5 MG Tab PO PRN (21:04)
[2021-11-09] MEDS ORDERED: Melatonin 3 MG Tab PO PRN (08:30)
[2021-11-09] MEDS ORDERED: Omeprazole 20 MG Cap.CR PO PRN (08:30)
[2021-11-10 11:48] LABS: ANION GAP 10.6 mmol/L (5-15)
[2021-11-15] MEDS ORDERED: Potassium Chloride 20 MEQ Tab.ER ONE ×2 (15:18→17:20)
[2021-11-15] MEDS ORDERED: Magnesium Oxide 400 MG Tab ONE (18:09)
[2021-11-16] MEDS ORDERED: Potassium Chloride 20 MEQ Tab.ER ONE ×2 (12:20→17:46)
[2021-11-16] MEDS ORDERED: Magnesium Oxide 400 MG Tab ONE (17:45)
[2021-11-17] MEDS ORDERED: Potassium Chloride 20 MEQ Tab.ER ONE ×2 (10:32→18:01)
[2021-11-17] MEDS ORDERED: Magnesium Oxide 400 MG Tab ONE (18:00)
[2021-11-19] MEDS ORDERED: Potassium Chloride 20 MEQ Tab.ER ONE ×2 (12:11→18:23)
[2021-11-19] MEDS ORDERED: Magnesium Oxide 400 MG Tab ONE (18:23)
[2021-11-21] MEDS ORDERED: Potassium Chloride 20 MEQ Tab.ER ONE ×3 (09:32→17:52)
[2021-11-21] MEDS ORDERED: Magnesium Oxide 400 MG Tab ONE (20:16)
[2021-11-22 07:10] LABS: ANION GAP 8.6 mmol/L (5-15)
[2021-11-22] MEDS ORDERED: Potassium Chloride 20 MEQ Tab.ER ONE ×3 (09:05→17:10)
[2021-11-22] MEDS ORDERED: Magnesium Oxide 400 MG Tab ONE (20:41)
[2021-11-23] MEDS ORDERED: Potassium Chloride 20 MEQ Tab.ER ONE ×3 (07:38→16:47)
[2021-11-23] MEDS ORDERED: Potassium Chloride 20 MEQ Tab.ER PO SCH (14:49)
[2021-11-23] MEDS: Apixaban 2.5 MG Tab PO SCH ×10 (15:48→20:47)
[2021-11-23] MEDS: Potassium Chloride 20 MEQ Tab.ER PO SCH ×15 (15:49→18:21)
[2021-11-23] MEDS: Hydrochlorothiazide 12.5 MG Cap PO SCH ×7 (15:49→16:42)
[2021-11-23] MEDS: Insulin Glarg,Human.Rec.Analog 100 Unit/ML SUBCUT SCH ×7 (15:51→16:42)
[2021-11-23] MEDS: Heparin Sodium 100 Units/ML 3 ML Syringe ONE ×2 (15:53→16:29)
[2021-11-23] MEDS: Heparin Sodium 100 Units/ML 3 ML Syringe FLUSH SCH ×3 (15:53→18:20)
[2021-11-23] MEDS: predniSONE 5 MG Tab PO SCH ×5 (16:26→16:42)
[2021-11-23] MEDS: Calcium Carbonate 750 MG Tab.Chew PO SCH ×5 (16:27→16:43)
[2021-11-23] MEDS: sulfaSALAzine 500 MG Tab.EC PO SCH ×5 (16:27→16:43)
[2021-11-23] MEDS: Cholecalciferol (Vitamin D3) 25 MCG Tab PO SCH ×5 (16:27→16:43)
[2021-11-23] MEDS: Montelukast 10 MG Tab PO SCH ×5 (16:27→16:43)
[2021-11-23] MEDS: cefTRIAXone 2 GM Vial IVPUSH SCH ×7 (16:28→18:19)
[2021-11-23] MEDS: Magnesium Oxide 400 MG Tab PO SCH ×12 (16:28→20:48)
[2021-11-23] MEDS: Sodium Chloride 0.9% 10 ML Syringe FLUSH SCH ×2 (16:29→18:20)
[2021-11-23] MEDS ORDERED: cefTRIAXone 2 GM Vial ONE (16:47)
[2021-11-24 06:10] VITALS: BP 134/60; PULSE 74
[2021-11-24] MEDS: Calcium Carbonate 750 MG Tab.Chew PO SCH (09:23)
[2021-11-24] MEDS: Cholecalciferol (Vitamin D3) 25 MCG Tab PO SCH (09:24)
[2021-11-24] MEDS: Hydrochlorothiazide 12.5 MG Cap PO SCH (09:24)
[2021-11-24] MEDS: Montelukast 10 MG Tab PO SCH (09:24)
[2021-11-24] MEDS: sulfaSALAzine 500 MG Tab.EC PO SCH (09:24)
[2021-11-24] MEDS: Insulin Glarg,Human.Rec.Analog 100 Unit/ML SUBCUT SCH (09:25)
[2021-11-24] MEDS: Apixaban 2.5 MG Tab PO SCH (09:25)
[2021-11-24] MEDS: Potassium Chloride 20 MEQ Tab.ER PO SCH ×2 (09:25→12:38)
[2021-11-24] MEDS: predniSONE 5 MG Tab PO SCH (09:25)
[2021-11-24] MEDS: Magnesium Oxide 400 MG Tab PO SCH (09:26)
[2021-11-24] MEDS: cefTRIAXone 2 GM Vial IVPUSH SCH (17:09)
[2021-11-24] MEDS: Sodium Chloride 0.9% 10 ML Syringe FLUSH SCH (17:10)
[2021-11-24] MEDS: Heparin Sodium 100 Units/ML 3 ML Syringe FLUSH SCH (17:14)
== END 2021-11-24 17:30 | disposition home health service (06) | DRG 561 ==
LOC: VM.MS 15:36
PROVIDERS: ADMIT Internal Medicine; ATTEND Internal Medicine
DX: Z47.1 Aftercare following joint replacement surgery (principal); Z96.653 Presence of artificial knee joint, bilateral; Z88.8 Allergy status to other drugs, medicaments and biological substances; Z79.899 Other long term (current) drug therapy; Z79.01 Long term (current) use of anticoagulants; Z86.718 Personal history of other venous thrombosis and embolism; Z87.440 Personal history of urinary (tract) infections; G89.29 Other chronic pain; M54.9 Dorsalgia, unspecified; E78.5 Hyperlipidemia, unspecified; I10 Essential (primary) hypertension; D50.9 Iron deficiency anemia, unspecified; E66.9 Obesity, unspecified; M19.90 Unspecified osteoarthritis, unspecified site; E78.1 Pure hyperglyceridemia; G47.00 Insomnia, unspecified; N40.1 Benign prostatic hyperplasia with lower urinary tract symptoms; R33.8 Other retention of urine; M45.9 Ankylosing spondylitis of unspecified sites in spine; T38.0X5A Adverse effect of glucocorticoids and synthetic analogues, initial encounter; E11.9 Type 2 diabetes mellitus without complications; Z98.1 Arthrodesis status
CPT/HCPCS: 36415; 80048; 80053; 82947; 83735; 85025; 86140; 97110-GP; 97116-GP; 97161-GP; A9270-GY; J0696; J1642; J3490; J7512

== ENCOUNTER 2023-09-21 07:23 | Emergency (ER) | payer MEDICARE, OTHER ==
[2023-09-21 07:49] LABS: BASOPHILS PERCENT AUTO 0.3 % (0.2-1.2); EOSINOPHILS PERCENT AUTO 0.6 % (0.0-4.0); HEMATOCRIT 40.2 % (40.0-52.0); HEMOGLOBIN 13.8 g/dL (14.0-18.0); IMMATURE GRAN ABSOLUTE AUTO 0.05 x10^3/uL (0.00-0.07); LYMPHOCYTES ABSOLUTE AUTO 1.5 x10^3/uL (1.0-4.8); LYMPHOCYTES PERCENT AUTO 23.8 % (25.0-50.0); MEAN CORPUSCULAR HEMOGLOBIN 31.9 pg (26.0-32.0); MEAN CORPUSCULAR HGB CONC 34.3 g/dL (32.0-36.0); MEAN CORPUSCULAR VOLUME 93.1 fL (78.0-93.0); MONOCYTES ABSOLUTE AUTO 0.4 x10^3/uL (0.0-0.8); MONOCYTES PERCENT AUTO 5.7 % (2.0-11.0); NEUTROPHILS ABSOLUTE AUTO 4.4 x10^3/uL (1.8-7.7); NEUTROPHILS PERCENT AUTO 68.8 % (50.0-80.0); PLATELET COUNT,PLT 200 x10^3/uL (130-400); RED BLOOD CELL COUNT 4.32 x10^6/uL (4.5-6.0); WHITE BLOOD CELL COUNT,WBC 6.4 x10^3/uL (4.0-10.0)
[2023-09-21 08:05] LABS: A/G RATIO 1.81; ALANINE AMINOTRANSFERASE,ALT 56 U/L (16-63); ALBUMIN 3.8 g/dL (3.4-5.0); ALKALINE PHOSPHATASE 60 U/L (46-116); ASPARTATE AMNIOTRANSFERASE,AST 42 U/L (15-37); BILIRUBIN TOTAL 0.6 mg/dL (0.2-1.0); BLOOD UREA NITROGEN,BUN 22 mg/dL (7-18); CALCIUM 8.9 mg/dL (8.5-10.1); CARBON DIOXIDE,CO2 27 mmol/L (21-32); CHLORIDE,CL 102 mmol/L (98-107); CREATININE 0.9 mg/dL (0.70-1.30); GLUCOSE RANDOM 271 mg/dL (70-99); POTASSIUM,K 3.8 mmol/L (3.5-5.1); PROTEIN TOTAL,TP 5.9 g/dL (6.4-8.2); SODIUM,NA 139 mmol/L (136-145)
[2023-09-21 08:06] LABS: ANION GAP 13.8 mmol/L (5-15); ESTIMATED GFR 87 mL/min (>=60); INR 1.1 (0.9-1.1); PROTHROMBIN TIME 10.9 SEC (8.9-11.5)
[2023-09-21 12:56] VITALS: BP 124/64; PULSE 67
== END 2023-09-21 14:36 | disposition short-term general hospital (02) ==
LOC: VM.ED 07:23
DX: S72.321A Displaced transverse fracture of shaft of right femur, initial encounter for closed fracture (principal); I10 Essential (primary) hypertension; E78.00 Pure hypercholesterolemia, unspecified; E66.9 Obesity, unspecified; Z79.899 Other long term (current) drug therapy; Z79.01 Long term (current) use of anticoagulants; Z79.4 Long term (current) use of insulin; Z88.8 Allergy status to other drugs, medicaments and biological substances; Z88.0 Allergy status to penicillin; Z88.1 Allergy status to other antibiotic agents; X50.9XXA Other and unspecified overexertion or strenuous movements or postures, initial encounter; Y93.01 Activity, walking, marching and hiking; Y92.000 Kitchen of unspecified non-institutional (private) residence as the place of occurrence of the external cause
CPT/HCPCS: 36415; 73030-RT; 80053; 85025; 85610; 99285

== ENCOUNTER 2023-09-25 13:37 | Inpatient (IN) | payer MEDICARE, OTHER ==
[2023-09-25] MEDS ORDERED: oxyCODONE 5 MG Tab PO PRN (16:44)
[2023-09-25] MEDS ORDERED: Indomethacin 25 MG Cap PO PRN (16:47)
[2023-09-25] MEDS: Sennosides/Docusate Sodium 50-8.6 MG Tab PO SCH (20:13)
[2023-09-25] MEDS: Acetaminophen 500 MG Tab PO SCH (20:13)
[2023-09-25] MEDS: Calcium Citrate/Vitamin D3 315 MG-250 Unit Tab PO SCH (20:13)
[2023-09-25] MEDS: INDOMETHACIN 75 MG PO ONE (20:14)
[2023-09-25] MEDS: Enoxaparin 40 MG/0.4 ML Syringe SUBCUT SCH (20:14)
[2023-09-26] MEDS: Cholecalciferol (Vitamin D3) 25 MCG Tab PO SCH (08:49)
[2023-09-26] MEDS: Lisinopril 10 MG Tab PO SCH (08:49)
[2023-09-26] MEDS: Hydrochlorothiazide 25 MG Tab PO SCH (08:50)
[2023-09-26] MEDS: Magnesium Oxide 400 MG Tab PO SCH (08:51)
[2023-09-26] MEDS: predniSONE 10 MG Tab PO SCH (08:53)
[2023-09-26] MEDS: Potassium Chloride 20 MEQ Tab.ER PO SCH (08:53)
[2023-09-26] MEDS: Polyethylene Glycol 3350 Powder 17 GM Packet PO SCH (08:54)
[2023-09-27] MEDS: sulfaSALAzine 500 MG Tab.EC PO SCH (08:41)
[2023-09-28 07:23] LABS: BASOPHILS ABSOLUTE AUTO 0.1 x10^3/uL (0.0-0.2); BASOPHILS PERCENT AUTO 0.5 % (0.2-1.2); EOSINOPHILS ABSOLUTE AUTO 0.4 x10^3/uL (0.0-0.5); EOSINOPHILS PERCENT AUTO 4.6 % (0.0-4.0); HEMATOCRIT 35.6 % (40.0-52.0); IMMATURE GRAN ABSOLUTE AUTO 0.05 x10^3/uL (0.00-0.07); LYMPHOCYTES ABSOLUTE AUTO 3.2 x10^3/uL (1.0-4.8); MEAN CORPUSCULAR HEMOGLOBIN 32.3 pg (26.0-32.0); MEAN CORPUSCULAR HGB CONC 33.7 g/dL (32.0-36.0); MONOCYTES ABSOLUTE AUTO 0.8 x10^3/uL (0.0-0.8); MONOCYTES PERCENT AUTO 8.8 % (2.0-11.0); NEUTROPHILS ABSOLUTE AUTO 4.9 x10^3/uL (1.8-7.7); NEUTROPHILS PERCENT AUTO 51.6 % (50.0-80.0); PLATELET COUNT,PLT 312 x10^3/uL (130-400); RED BLOOD CELL COUNT 3.71 x10^6/uL (4.5-6.0); WHITE BLOOD CELL COUNT,WBC 9.4 x10^3/uL (4.0-10.0)
[2023-09-28 07:31] LABS: ANION GAP 10.3 mmol/L (5-15); CALCIUM 9.3 mg/dL (8.5-10.1); CREATININE 0.8 mg/dL (0.70-1.30); EST CRCL DRUG DOSING (CG) 72.44 mL/min; POTASSIUM,K 3.3 mmol/L (3.5-5.1)
[2023-09-30] MEDS: INDOMETHACIN 75 MG PO PRN (08:53)
[2023-10-02] MEDS: INDOMETHACIN 75 MG PO SCH (17:56)
[2023-10-03 06:54] LABS: BASOPHILS PERCENT AUTO 0.6 % (0.2-1.2); EOSINOPHILS ABSOLUTE AUTO 0.4 x10^3/uL (0.0-0.5); EOSINOPHILS PERCENT AUTO 6.5 % (0.0-4.0); HEMATOCRIT 37.1 % (40.0-52.0); HEMOGLOBIN 12.6 g/dL (14.0-18.0); IMMATURE GRAN ABSOLUTE AUTO 0.03 x10^3/uL (0.00-0.07); LYMPHOCYTES ABSOLUTE AUTO 2.3 x10^3/uL (1.0-4.8); LYMPHOCYTES PERCENT AUTO 34.6 % (25.0-50.0); MEAN CORPUSCULAR HEMOGLOBIN 32.5 pg (26.0-32.0); MEAN CORPUSCULAR VOLUME 95.6 fL (78.0-93.0); MONOCYTES ABSOLUTE AUTO 0.5 x10^3/uL (0.0-0.8); MONOCYTES PERCENT AUTO 8.2 % (2.0-11.0); NEUTROPHILS ABSOLUTE AUTO 3.2 x10^3/uL (1.8-7.7); NEUTROPHILS PERCENT AUTO 49.6 % (50.0-80.0); PLATELET COUNT,PLT 284 x10^3/uL (130-400); RED BLOOD CELL COUNT 3.88 x10^6/uL (4.5-6.0); WHITE BLOOD CELL COUNT,WBC 6.5 x10^3/uL (4.0-10.0)
[2023-10-03 07:03] LABS: CALCIUM 8.7 mg/dL (8.5-10.1); CREATININE 0.8 mg/dL (0.70-1.30); EST CRCL DRUG DOSING (CG) 72.44 mL/min; POTASSIUM,K 3.9 mmol/L (3.5-5.1)
[2023-10-03 07:14] LABS: ANION GAP 9.9 mmol/L (5-15)
[2023-10-03] MEDS: Famotidine 20 MG Tab PO SCH (08:39)
[2023-10-10 07:04] LABS: CALCIUM 8.2 mg/dL (8.5-10.1); CREATININE 0.7 mg/dL (0.70-1.30); EST CRCL DRUG DOSING (CG) 82.79 mL/min
[2023-10-10 07:11] LABS: BASOPHILS PERCENT AUTO 0.8 % (0.2-1.2); EOSINOPHILS ABSOLUTE AUTO 0.2 x10^3/uL (0.0-0.5); EOSINOPHILS PERCENT AUTO 4.5 % (0.0-4.0); HEMATOCRIT 35.7 % (40.0-52.0); HEMOGLOBIN 12.1 g/dL (14.0-18.0); IMMATURE GRAN ABSOLUTE AUTO 0.02 x10^3/uL (0.00-0.07); LYMPHOCYTES ABSOLUTE AUTO 2.3 x10^3/uL (1.0-4.8); LYMPHOCYTES PERCENT AUTO 42.9 % (25.0-50.0); MEAN CORPUSCULAR HEMOGLOBIN 32.8 pg (26.0-32.0); MEAN CORPUSCULAR HGB CONC 33.9 g/dL (32.0-36.0); MEAN CORPUSCULAR VOLUME 96.7 fL (78.0-93.0); MONOCYTES ABSOLUTE AUTO 0.5 x10^3/uL (0.0-0.8); MONOCYTES PERCENT AUTO 9.2 % (2.0-11.0); NEUTROPHILS ABSOLUTE AUTO 2.3 x10^3/uL (1.8-7.7); NEUTROPHILS PERCENT AUTO 42.2 % (50.0-80.0); PLATELET COUNT,PLT 305 x10^3/uL (130-400); RED BLOOD CELL COUNT 3.69 x10^6/uL (4.5-6.0); WHITE BLOOD CELL COUNT,WBC 5.3 x10^3/uL (4.0-10.0)
[2023-10-11] MEDS ORDERED: Polyethylene Glycol 3350 Powder 17 GM Packet PO PRN (08:26)
[2023-10-11] MEDS ORDERED: Sennosides/Docusate Sodium 50-8.6 MG Tab PO PRN (08:52)
[2023-10-11] MEDS: Hydrochlorothiazide 12.5 MG Cap PO SCH (09:33)
[2023-10-16 07:07] LABS: BASOPHILS PERCENT AUTO 0.3 % (0.2-1.2); CALCIUM 8.7 mg/dL (8.5-10.1); CREATININE 0.8 mg/dL (0.70-1.30); EOSINOPHILS ABSOLUTE AUTO 0.1 x10^3/uL (0.0-0.5); EOSINOPHILS PERCENT AUTO 1.8 % (0.0-4.0); EST CRCL DRUG DOSING (CG) 72.44 mL/min; HEMATOCRIT 38.5 % (40.0-52.0); HEMOGLOBIN 12.6 g/dL (14.0-18.0); IMMATURE GRAN ABSOLUTE AUTO 0.02 x10^3/uL (0.00-0.07); LYMPHOCYTES ABSOLUTE AUTO 3.3 x10^3/uL (1.0-4.8); LYMPHOCYTES PERCENT AUTO 49.6 % (25.0-50.0); MEAN CORPUSCULAR HEMOGLOBIN 32.2 pg (26.0-32.0); MEAN CORPUSCULAR HGB CONC 32.7 g/dL (32.0-36.0); MEAN CORPUSCULAR VOLUME 98.5 fL (78.0-93.0); MONOCYTES ABSOLUTE AUTO 0.6 x10^3/uL (0.0-0.8); MONOCYTES PERCENT AUTO 9.4 % (2.0-11.0); NEUTROPHILS ABSOLUTE AUTO 2.6 x10^3/uL (1.8-7.7); NEUTROPHILS PERCENT AUTO 38.6 % (50.0-80.0); PLATELET COUNT,PLT 293 x10^3/uL (130-400); POTASSIUM,K 3.8 mmol/L (3.5-5.1); RED BLOOD CELL COUNT 3.91 x10^6/uL (4.5-6.0); WHITE BLOOD CELL COUNT,WBC 6.7 x10^3/uL (4.0-10.0)
[2023-10-16 07:08] LABS: ANION GAP 12.8 mmol/L (5-15)
[2023-10-18] MEDS ORDERED: Acetaminophen 500 MG Tab PO PRN (19:44)
[2023-10-23 07:21] LABS: BASOPHILS PERCENT AUTO 0.2 % (0.2-1.2); EOSINOPHILS ABSOLUTE AUTO 0.1 x10^3/uL (0.0-0.5); EOSINOPHILS PERCENT AUTO 1.8 % (0.0-4.0); HEMATOCRIT 38.6 % (40.0-52.0); HEMOGLOBIN 12.9 g/dL (14.0-18.0); IMMATURE GRAN ABSOLUTE AUTO 0.03 x10^3/uL (0.00-0.07); LYMPHOCYTES ABSOLUTE AUTO 2.8 x10^3/uL (1.0-4.8); LYMPHOCYTES PERCENT AUTO 45.7 % (25.0-50.0); MEAN CORPUSCULAR HEMOGLOBIN 32.7 pg (26.0-32.0); MEAN CORPUSCULAR HGB CONC 33.4 g/dL (32.0-36.0); MONOCYTES ABSOLUTE AUTO 0.6 x10^3/uL (0.0-0.8); MONOCYTES PERCENT AUTO 10.2 % (2.0-11.0); NEUTROPHILS ABSOLUTE AUTO 2.6 x10^3/uL (1.8-7.7); NEUTROPHILS PERCENT AUTO 41.6 % (50.0-80.0); PLATELET COUNT,PLT 252 x10^3/uL (130-400); RED BLOOD CELL COUNT 3.94 x10^6/uL (4.5-6.0); WHITE BLOOD CELL COUNT,WBC 6.2 x10^3/uL (4.0-10.0)
[2023-10-23 07:25] LABS: CALCIUM 9.2 mg/dL (8.5-10.1); CREATININE 0.8 mg/dL (0.70-1.30); EST CRCL DRUG DOSING (CG) 72.44 mL/min; POTASSIUM,K 3.6 mmol/L (3.5-5.1)
[2023-10-23 08:09] LABS: ANION GAP 9.6 mmol/L (5-15)
[2023-10-30 07:04] LABS: BASOPHILS PERCENT AUTO 0.1 % (0.2-1.2); EOSINOPHILS ABSOLUTE AUTO 0.1 x10^3/uL (0.0-0.5); EOSINOPHILS PERCENT AUTO 1.5 % (0.0-4.0); HEMATOCRIT 40.4 % (40.0-52.0); HEMOGLOBIN 13.5 g/dL (14.0-18.0); IMMATURE GRAN ABSOLUTE AUTO 0.02 x10^3/uL (0.00-0.07); LYMPHOCYTES ABSOLUTE AUTO 3.7 x10^3/uL (1.0-4.8); LYMPHOCYTES PERCENT AUTO 46.8 % (25.0-50.0); MEAN CORPUSCULAR HEMOGLOBIN 32.8 pg (26.0-32.0); MEAN CORPUSCULAR HGB CONC 33.4 g/dL (32.0-36.0); MEAN CORPUSCULAR VOLUME 98.3 fL (78.0-93.0); MONOCYTES ABSOLUTE AUTO 0.7 x10^3/uL (0.0-0.8); MONOCYTES PERCENT AUTO 8.8 % (2.0-11.0); NEUTROPHILS ABSOLUTE AUTO 3.4 x10^3/uL (1.8-7.7); NEUTROPHILS PERCENT AUTO 42.5 % (50.0-80.0); PLATELET COUNT,PLT 274 x10^3/uL (130-400); RED BLOOD CELL COUNT 4.11 x10^6/uL (4.5-6.0); WHITE BLOOD CELL COUNT,WBC 7.9 x10^3/uL (4.0-10.0)
[2023-10-30 07:16] LABS: CALCIUM 9.3 mg/dL (8.5-10.1); CREATININE 0.8 mg/dL (0.70-1.30); EST CRCL DRUG DOSING (CG) 72.44 mL/min; POTASSIUM,K 4.4 mmol/L (3.5-5.1)
[2023-10-30 07:27] LABS: ANION GAP 11.4 mmol/L (5-15)
[2023-11-06 07:39] LABS: BASOPHILS PERCENT AUTO 0.4 % (0.2-1.2); EOSINOPHILS ABSOLUTE AUTO 0.1 x10^3/uL (0.0-0.5); EOSINOPHILS PERCENT AUTO 1.8 % (0.0-4.0); HEMATOCRIT 40.2 % (40.0-52.0); HEMOGLOBIN 13.5 g/dL (14.0-18.0); IMMATURE GRAN ABSOLUTE AUTO 0.01 x10^3/uL (0.00-0.07); LYMPHOCYTES ABSOLUTE AUTO 2.8 x10^3/uL (1.0-4.8); LYMPHOCYTES PERCENT AUTO 41.9 % (25.0-50.0); MEAN CORPUSCULAR HEMOGLOBIN 32.4 pg (26.0-32.0); MEAN CORPUSCULAR HGB CONC 33.6 g/dL (32.0-36.0); MEAN CORPUSCULAR VOLUME 96.4 fL (78.0-93.0); MONOCYTES ABSOLUTE AUTO 0.7 x10^3/uL (0.0-0.8); MONOCYTES PERCENT AUTO 9.7 % (2.0-11.0); NEUTROPHILS ABSOLUTE AUTO 3.1 x10^3/uL (1.8-7.7); NEUTROPHILS PERCENT AUTO 46.1 % (50.0-80.0); PLATELET COUNT,PLT 263 x10^3/uL (130-400); RED BLOOD CELL COUNT 4.17 x10^6/uL (4.5-6.0); WHITE BLOOD CELL COUNT,WBC 6.8 x10^3/uL (4.0-10.0)
[2023-11-06 07:54] LABS: CALCIUM 9.2 mg/dL (8.5-10.1); CREATININE 0.9 mg/dL (0.70-1.30); EST CRCL DRUG DOSING (CG) 64.39 mL/min; POTASSIUM,K 3.6 mmol/L (3.5-5.1)
[2023-11-06 08:02] LABS: ANION GAP 8.6 mmol/L (5-15)
[2023-11-11] MEDS: Menthol Lozenge MUCMEM PRN (18:37)
[2023-11-20 06:13] VITALS: PULSE 76
[2023-11-21 06:20] VITALS: BP 117/59
== END 2023-11-21 16:40 | disposition home or self-care (01) | DRG 560 ==
LOC: VM.MS 14:34
PROVIDERS: ADMIT Internal Medicine; ATTEND Internal Medicine
DX: M97.11XD Periprosthetic fracture around internal prosthetic right knee joint, subsequent encounter (principal); D84.9 Immunodeficiency, unspecified; K51.90 Ulcerative colitis, unspecified, without complications; M80.061D Age-related osteoporosis with current pathological fracture, right lower leg, subsequent encounter for fracture with routine healing; I10 Essential (primary) hypertension; G89.29 Other chronic pain; M54.9 Dorsalgia, unspecified; E78.5 Hyperlipidemia, unspecified; M19.90 Unspecified osteoarthritis, unspecified site; D50.9 Iron deficiency anemia, unspecified; M81.0 Age-related osteoporosis without current pathological fracture; E11.65 Type 2 diabetes mellitus with hyperglycemia; D64.9 Anemia, unspecified; E66.9 Obesity, unspecified; M45.9 Ankylosing spondylitis of unspecified sites in spine; K21.9 Gastro-esophageal reflux disease without esophagitis; Z88.0 Allergy status to penicillin; Z98.1 Arthrodesis status; Z68.28 Body mass index [BMI] 28.0-28.9, adult; Z98.890 Other specified postprocedural states; Z87.442 Personal history of urinary calculi; X58.XXXD Exposure to other specified factors, subsequent encounter
CPT/HCPCS: 36415; 73030-RT; 80048; 82947; 85025; 87651-QW; 95851-GO; 97110-GP; 97116-GP; 97161-GP; 97165-GO; 97530-GO; 97530-GP; 97535-GO; A9270-GY; J1650; J7512; U0002

== ENCOUNTER 2024-01-29 09:36 | Inpatient (IN) | payer MEDICARE, OTHER ==
[2024-01-29] MEDS ORDERED: Ondansetron 4 MG Tab.DIS PO PRN (13:06)
[2024-01-29] MEDS ORDERED: HYDROmorphone 0.5 MG/0.5 ML Syringe IVPUSH PRN (13:06)
[2024-01-29] MEDS ORDERED: Polyethylene Glycol 3350 Powder 17 GM Packet PO PRN (13:12)
[2024-01-29] MEDS ORDERED: SULFASALAZINE 500 MG SCH (13:15)
[2024-01-29] MEDS: Acetaminophen 500 MG Tab PO SCH (18:01)
[2024-01-29] MEDS: Calcium Citrate/Vitamin D3 315 MG-250 Unit Tab PO SCH (18:02)
[2024-01-29] MEDS: INDOMETHACIN 75 MG PO SCH (18:02)
[2024-01-29] MEDS: sulfaSALAzine 500 MG Tab.EC PO SCH (21:20)
[2024-01-30 07:18] LABS: HEMATOCRIT 31.3 % (40.0-52.0); HEMOGLOBIN 10.2 g/dL (14.0-18.0); MEAN CORPUSCULAR HEMOGLOBIN 31.7 pg (26.0-32.0); MEAN CORPUSCULAR HGB CONC 32.6 g/dL (32.0-36.0); MEAN CORPUSCULAR VOLUME 97.2 fL (78.0-93.0); RED BLOOD CELL COUNT 3.22 x10^6/uL (4.5-6.0); WHITE BLOOD CELL COUNT,WBC 7.6 x10^3/uL (4.0-10.0)
[2024-01-30] MEDS: traMADol 50 MG Tab PO PRN (08:19)
[2024-01-30] MEDS: Lisinopril 10 MG Tab PO SCH (08:20)
[2024-01-30] MEDS: Hydrochlorothiazide 12.5 MG Cap PO SCH (08:20)
[2024-01-30] MEDS: Zinc Sulfate 220 MG Cap PO SCH (08:20)
[2024-01-30] MEDS: sulfaSALAzine 500 MG Tab.EC PO SCH (08:21)
[2024-01-30] MEDS: Calcium Carbonate/Vitamin D3 1250 MG-5 MCG Tab PO SCH (08:24)
[2024-01-30] MEDS: predniSONE 5 MG Tab PO SCH (08:24)
[2024-01-30] MEDS: Potassium Chloride 20 MEQ Tab.ER PO SCH (08:24)
[2024-01-30] MEDS: Cholecalciferol (Vitamin D3) 25 MCG Tab PO SCH (08:25)
[2024-01-30] MEDS: Magnesium Oxide 400 MG Tab PO SCH (08:26)
[2024-01-30] MEDS: Enoxaparin 40 MG/0.4 ML Syringe SUBCUT SCH (08:26)
[2024-01-30] MEDS ORDERED: Non-Formulary Medication 1 Each (Prednisone [Prednisone] 2.5 MG Tablet) PO SCH (09:00)
[2024-01-30] MEDS ORDERED: BENAZEPRIL 10 MG PO SCH (09:00)
[2024-01-30] MEDS ORDERED: Non-Formulary Medication 1 Each (Magnesium Oxide [Magnesium] 500 MG Capsule) PO SCH (09:00)
[2024-01-31 08:38] LABS: HEMOGLOBIN 10.4 g/dL (14.0-18.0); MEAN CORPUSCULAR HEMOGLOBIN 31.7 pg (26.0-32.0); MEAN CORPUSCULAR HGB CONC 32.5 g/dL (32.0-36.0); MEAN CORPUSCULAR VOLUME 97.6 fL (78.0-93.0); RED BLOOD CELL COUNT 3.28 x10^6/uL (4.5-6.0); WHITE BLOOD CELL COUNT,WBC 6.4 x10^3/uL (4.0-10.0)
[2024-02-01 07:57] LABS: HEMATOCRIT 32.7 % (40.0-52.0); HEMOGLOBIN 10.8 g/dL (14.0-18.0); RED BLOOD CELL COUNT 3.37 x10^6/uL (4.5-6.0); WHITE BLOOD CELL COUNT,WBC 8.6 x10^3/uL (4.0-10.0)
[2024-02-02 07:19] LABS: HEMATOCRIT 31.5 % (40.0-52.0); HEMOGLOBIN 10.4 g/dL (14.0-18.0); MEAN CORPUSCULAR HEMOGLOBIN 32.2 pg (26.0-32.0); MEAN CORPUSCULAR VOLUME 97.5 fL (78.0-93.0); RED BLOOD CELL COUNT 3.23 x10^6/uL (4.5-6.0); WHITE BLOOD CELL COUNT,WBC 7.9 x10^3/uL (4.0-10.0)
[2024-02-09 07:14] LABS: BASOPHILS PERCENT AUTO 0.4 % (0.2-1.2); EOSINOPHILS ABSOLUTE AUTO 0.1 x10^3/uL (0.0-0.5); EOSINOPHILS PERCENT AUTO 1.7 % (0.0-4.0); HEMATOCRIT 35.7 % (40.0-52.0); HEMOGLOBIN 11.5 g/dL (14.0-18.0); IMMATURE GRAN ABSOLUTE AUTO 0.01 x10^3/uL (0.00-0.07); LYMPHOCYTES ABSOLUTE AUTO 2.8 x10^3/uL (1.0-4.8); LYMPHOCYTES PERCENT AUTO 52.2 % (25.0-50.0); MEAN CORPUSCULAR HEMOGLOBIN 31.7 pg (26.0-32.0); MEAN CORPUSCULAR HGB CONC 32.2 g/dL (32.0-36.0); MEAN CORPUSCULAR VOLUME 98.3 fL (78.0-93.0); MONOCYTES ABSOLUTE AUTO 0.5 x10^3/uL (0.0-0.8); MONOCYTES PERCENT AUTO 9.2 % (2.0-11.0); NEUTROPHILS PERCENT AUTO 36.3 % (50.0-80.0); PLATELET COUNT,PLT 353 x10^3/uL (130-400); RED BLOOD CELL COUNT 3.63 x10^6/uL (4.5-6.0); WHITE BLOOD CELL COUNT,WBC 5.4 x10^3/uL (4.0-10.0)
[2024-02-09 07:42] LABS: ALBUMIN 3.3 g/dL (3.4-5.0); CALCIUM 8.8 mg/dL (8.5-10.1); CREATININE 0.8 mg/dL (0.70-1.30); EST CRCL DRUG DOSING (CG) 67.57 mL/min; PHOSPHORUS 3.1 mg/dL (2.6-4.7); POTASSIUM,K 3.6 mmol/L (3.5-5.1)
[2024-02-19 07:47] LABS: HEMATOCRIT 35.6 % (40.0-52.0); HEMOGLOBIN 11.7 g/dL (14.0-18.0); MEAN CORPUSCULAR HEMOGLOBIN 32.1 pg (26.0-32.0); MEAN CORPUSCULAR HGB CONC 32.9 g/dL (32.0-36.0); MEAN CORPUSCULAR VOLUME 97.8 fL (78.0-93.0); PLATELET COUNT,PLT 282 x10^3/uL (130-400); RED BLOOD CELL COUNT 3.64 x10^6/uL (4.5-6.0); WHITE BLOOD CELL COUNT,WBC 4.8 x10^3/uL (4.0-10.0)
[2024-02-19] MEDS: Sennosides/Docusate Sodium 50-8.6 MG Tab PO PRN (08:10)
[2024-02-19 08:47] LABS: EOSINOPHILS PERCENT MAN 1 % (0-4); LYMPHOCYTES ABSOLUTE MAN 2.4 x10^3/uL (1.0-4.8); LYMPHOCYTES PERCENT MAN 51 % (25-50); MONOCYTES ABSOLUTE MAN 0.2 x10^3/uL (0.0-0.8); MONOCYTES PERCENT MAN 5 % (2-11); NEUTROPHILS ABSOLUTE MAN 2.1 x10^3/uL (1.8-7.7); SEG NEUTROPHILS PERCENT MAN 43 % (50-80)
[2024-02-27 06:46] LABS: BASOPHILS PERCENT AUTO 0.4 % (0.2-1.2); EOSINOPHILS ABSOLUTE AUTO 0.1 x10^3/uL (0.0-0.5); EOSINOPHILS PERCENT AUTO 1.8 % (0.0-4.0); HEMATOCRIT 37.9 % (40.0-52.0); HEMOGLOBIN 12.5 g/dL (14.0-18.0); IMMATURE GRAN ABSOLUTE AUTO 0.01 x10^3/uL (0.00-0.07); LYMPHOCYTES ABSOLUTE AUTO 2.5 x10^3/uL (1.0-4.8); LYMPHOCYTES PERCENT AUTO 44.7 % (25.0-50.0); MEAN CORPUSCULAR HEMOGLOBIN 31.6 pg (26.0-32.0); MEAN CORPUSCULAR VOLUME 95.9 fL (78.0-93.0); MONOCYTES ABSOLUTE AUTO 0.6 x10^3/uL (0.0-0.8); MONOCYTES PERCENT AUTO 11.2 % (2.0-11.0); NEUTROPHILS ABSOLUTE AUTO 2.3 x10^3/uL (1.8-7.7); NEUTROPHILS PERCENT AUTO 41.7 % (50.0-80.0); PLATELET COUNT,PLT 275 x10^3/uL (130-400); RED BLOOD CELL COUNT 3.95 x10^6/uL (4.5-6.0); WHITE BLOOD CELL COUNT,WBC 5.6 x10^3/uL (4.0-10.0)
[2024-02-27 07:03] LABS: ANION GAP 11.6 mmol/L (5-15); CALCIUM 8.9 mg/dL (8.5-10.1); CREATININE 0.8 mg/dL (0.70-1.30); EST CRCL DRUG DOSING (CG) 67.57 mL/min; POTASSIUM,K 3.6 mmol/L (3.5-5.1)
[2024-02-28 07:09] LABS: CALCIUM 9.1 mg/dL (8.5-10.1); CREATININE 0.7 mg/dL (0.70-1.30); EST CRCL DRUG DOSING (CG) 77.22 mL/min; POTASSIUM,K 3.9 mmol/L (3.5-5.1)
[2024-02-28 07:11] LABS: ANION GAP 9.9 mmol/L (5-15)
[2024-03-06] MEDS: Acetaminophen 325 MG Tab PO PRN (10:05)
[2024-03-11] MEDS: Menthol Lozenge MUCMEM PRN (06:28)
[2024-03-14] MEDS: Sodium Chloride 0.65% Nasal Spray 45 ML Bottle NAS SCH (10:16)
[2024-03-14] MEDS: Ipratropium 0.06% Nasal Spray 15 ML Bottle NASBOTH SCH (10:17)
[2024-03-15] MEDS ORDERED: predniSONE 10 MG Tab PO SCH (01:00)
[2024-03-15] MEDS: predniSONE 10 MG Tab PO SCH (01:54)
[2024-03-15 01:59] VITALS: BP 133/66; PULSE 88
== END 2024-03-15 03:45 | disposition home or self-care (01) | DRG 560 ==
LOC: VM.MS 12:44
PROVIDERS: ADMIT Family Medicine; ATTEND Internal Medicine
DX: S72.001D Fracture of unspecified part of neck of right femur, subsequent encounter for closed fracture with routine healing (principal); D62 Acute posthemorrhagic anemia; K51.90 Ulcerative colitis, unspecified, without complications; D84.9 Immunodeficiency, unspecified; E78.00 Pure hypercholesterolemia, unspecified; I10 Essential (primary) hypertension; M19.90 Unspecified osteoarthritis, unspecified site; M81.0 Age-related osteoporosis without current pathological fracture; E66.9 Obesity, unspecified; G89.18 Other acute postprocedural pain; Z66 Do not resuscitate; M45.9 Ankylosing spondylitis of unspecified sites in spine; E11.9 Type 2 diabetes mellitus without complications; E87.6 Hypokalemia; Z98.890 Other specified postprocedural states; Z88.1 Allergy status to other antibiotic agents; Z88.0 Allergy status to penicillin; Z88.8 Allergy status to other drugs, medicaments and biological substances; Z79.899 Other long term (current) drug therapy; Z79.01 Long term (current) use of anticoagulants; Z87.81 Personal history of (healed) traumatic fracture; Z68.28 Body mass index [BMI] 28.0-28.9, adult; Z98.49 Cataract extraction status, unspecified eye; X58.XXXD Exposure to other specified factors, subsequent encounter
CPT/HCPCS: 36415; 80048; 80069; 85025; 85027; 87428-QW; 87651-QW; 97110-GO; 97110-GP; 97116-GP; 97161-GP; 97165-GO; 97530-GO; 97530-GP; 97535-GO; A9270-GY; J1650; J7512

== ENCOUNTER 2024-03-16 08:39 | Inpatient (IN) | payer MEDICARE, OTHER ==
[2024-03-20] MEDS: Enoxaparin 30 MG/0.3 ML Syringe SUBCUT SCH (14:43)
[2024-03-20] MEDS ORDERED: Sennosides/Docusate Sodium 50-8.6 MG Tab PO PRN (15:29)
[2024-03-20] MEDS ORDERED: Polyethylene Glycol 3350 Powder 17 GM Packet PO PRN (15:29)
[2024-03-20] MEDS: Ipratropium 0.06% Nasal Spray 15 ML Bottle NASBOTH SCH (16:00)
[2024-03-20] MEDS: Sodium Chloride 0.65% Nasal Spray 45 ML Bottle NASBOTH SCH (16:00)
[2024-03-20] MEDS: Calcium Citrate/Vitamin D3 315 MG-250 Unit Tab PO SCH (18:45)
[2024-03-20] MEDS: Acetaminophen 500 MG Tab PO SCH (21:13)
[2024-03-20] MEDS: DAPTOmycin 500 MG Vial IV SCH (21:17)
[2024-03-21] MEDS: Sodium Chloride 0.9% 10 ML Syringe FLUSH PRN (01:47)
[2024-03-21] MEDS: traMADol 50 MG Tab PO PRN ×2 (08:51→11:49)
[2024-03-21] MEDS: sulfaSALAzine 500 MG Tab.EC PO SCH ×2 (08:57→22:01)
[2024-03-21] MEDS: predniSONE 5 MG Tab PO SCH (08:57)
[2024-03-21] MEDS: metFORMIN 500 MG Tab PO SCH (08:58)
[2024-03-21] MEDS: Cholecalciferol (Vitamin D3) 25 MCG Tab PO SCH (08:59)
[2024-03-21] MEDS: Magnesium Oxide 400 MG Tab PO SCH (08:59)
[2024-03-21] MEDS ORDERED: [UNRECOGNIZED DRUG - OTHER] IV SCH (09:00)
[2024-03-21] MEDS ORDERED: Non-Formulary Medication 1 Each (Prednisone [Prednisone] 2.5 MG Tablet) PO SCH (09:00)
[2024-03-21] MEDS ORDERED: DAPTOMYCIN IV SCH (09:00)
[2024-03-21] MEDS ORDERED: SOD CHLOR 0.9% IV SCH (09:00)
[2024-03-21] MEDS: Ascorbic Acid 500 MG Tab PO SCH (09:02)
[2024-03-21] MEDS: Ferrous Sulfate 325 MG Tab PO SCH (09:02)
[2024-03-21] MEDS: Potassium Chloride 20 MEQ Tab.ER PO SCH (09:03)
[2024-03-21] MEDS: Lisinopril 10 MG Tab PO SCH (09:05)
[2024-03-21] MEDS: Heparin Sodium 100 Units/ML 3 ML Syringe IVPUSH SCH (22:01)
[2024-03-22] MEDS: sulfaSALAzine 500 MG Tab.EC PO SCH (08:21)
[2024-03-22] MEDS: metFORMIN 500 MG Tab PO SCH (08:22)
[2024-03-22] MEDS: Menthol Lozenge MUCMEM PRN (22:15)
[2024-03-23] MEDS: Acetaminophen 500 MG Tab PO PRN (00:23)
[2024-03-23] MEDS: traMADol 50 MG Tab PO PRN (13:00)
[2024-03-23] MEDS: sulfaSALAzine 500 MG Tab.EC PO SCH (18:20)
[2024-03-24] MEDS: Ondansetron 4 MG Tab.DIS PO PRN (11:27)
[2024-03-25 07:05] LABS: BASOPHILS PERCENT AUTO 0.1 % (0.2-1.2); EOSINOPHILS ABSOLUTE AUTO 0.2 x10^3/uL (0.0-0.5); EOSINOPHILS PERCENT AUTO 1.6 % (0.0-4.0); HEMATOCRIT 26.1 % (40.0-52.0); HEMOGLOBIN 8.6 g/dL (14.0-18.0); IMMATURE GRAN ABSOLUTE AUTO 0.06 x10^3/uL (0.00-0.07); LYMPHOCYTES PERCENT AUTO 13.6 % (25.0-50.0); MEAN CORPUSCULAR HEMOGLOBIN 31.5 pg (26.0-32.0); MEAN CORPUSCULAR VOLUME 95.6 fL (78.0-93.0); MONOCYTES ABSOLUTE AUTO 1.1 x10^3/uL (0.0-0.8); MONOCYTES PERCENT AUTO 7.7 % (2.0-11.0); NEUTROPHILS PERCENT AUTO 76.6 % (50.0-80.0); PLATELET COUNT,PLT 345 x10^3/uL (130-400); RED BLOOD CELL COUNT 2.73 x10^6/uL (4.5-6.0); WHITE BLOOD CELL COUNT,WBC 14.4 x10^3/uL (4.0-10.0)
[2024-03-25 07:24] LABS: ALBUMIN 2.1 g/dL (3.4-5.0); C-REACTIVE PROTEIN 24.52 mg/dL (<=0.50); CALCIUM 8.8 mg/dL (8.5-10.1); CREATININE 0.8 mg/dL (0.70-1.30); EST CRCL DRUG DOSING (CG) 67.57 mL/min; PHOSPHORUS 3.5 mg/dL (2.6-4.7); POTASSIUM,K 4.3 mmol/L (3.5-5.1)
[2024-03-26 06:32] VITALS: BP 117/56; PULSE 99
[2024-03-26 06:48] LABS: BASOPHILS PERCENT AUTO 0.1 % (0.2-1.2); EOSINOPHILS ABSOLUTE AUTO 0.1 x10^3/uL (0.0-0.5); EOSINOPHILS PERCENT AUTO 0.8 % (0.0-4.0); HEMATOCRIT 26.5 % (40.0-52.0); HEMOGLOBIN 8.8 g/dL (14.0-18.0); IMMATURE GRAN ABSOLUTE AUTO 0.07 x10^3/uL (0.00-0.07); LYMPHOCYTES ABSOLUTE AUTO 2.2 x10^3/uL (1.0-4.8); LYMPHOCYTES PERCENT AUTO 14.8 % (25.0-50.0); MEAN CORPUSCULAR HEMOGLOBIN 31.4 pg (26.0-32.0); MEAN CORPUSCULAR HGB CONC 33.2 g/dL (32.0-36.0); MEAN CORPUSCULAR VOLUME 94.6 fL (78.0-93.0); MONOCYTES ABSOLUTE AUTO 1.1 x10^3/uL (0.0-0.8); MONOCYTES PERCENT AUTO 7.2 % (2.0-11.0); NEUTROPHILS ABSOLUTE AUTO 11.3 x10^3/uL (1.8-7.7); NEUTROPHILS PERCENT AUTO 76.6 % (50.0-80.0); PLATELET COUNT,PLT 401 x10^3/uL (130-400); WHITE BLOOD CELL COUNT,WBC 14.8 x10^3/uL (4.0-10.0)
[2024-03-26 06:58] LABS: CALCIUM 8.9 mg/dL (8.5-10.1); CREATININE 0.7 mg/dL (0.70-1.30); EST CRCL DRUG DOSING (CG) 77.22 mL/min; POTASSIUM,K 4.1 mmol/L (3.5-5.1)
[2024-03-26 07:00] LABS: ANION GAP 13.1 mmol/L (5-15)
[2024-03-26] MEDS: Promethazine 25 MG Tab PO PRN (08:21)
== END 2024-03-26 12:30 | disposition short-term general hospital (02) | DRG 949 ==
LOC: VM.MS 03-20 12:13
PROVIDERS: ADMIT Internal Medicine; ATTEND Internal Medicine
DX: T84.53XD Infection and inflammatory reaction due to internal right knee prosthesis, subsequent encounter (principal); D62 Acute posthemorrhagic anemia; E87.1 Hypo-osmolality and hyponatremia; E87.29 Other acidosis; K51.90 Ulcerative colitis, unspecified, without complications; E46 Unspecified protein-calorie malnutrition; Z66 Do not resuscitate; M45.9 Ankylosing spondylitis of unspecified sites in spine; E11.9 Type 2 diabetes mellitus without complications; M81.0 Age-related osteoporosis without current pathological fracture; M54.9 Dorsalgia, unspecified; G89.29 Other chronic pain; E78.5 Hyperlipidemia, unspecified; I10 Essential (primary) hypertension; E78.1 Pure hyperglyceridemia; E66.9 Obesity, unspecified; M19.90 Unspecified osteoarthritis, unspecified site; E83.51 Hypocalcemia; E87.6 Hypokalemia; Z79.899 Other long term (current) drug therapy; Z88.0 Allergy status to penicillin; Z88.8 Allergy status to other drugs, medicaments and biological substances; Z87.81 Personal history of (healed) traumatic fracture; Z68.28 Body mass index [BMI] 28.0-28.9, adult; Z98.1 Arthrodesis status; Y83.1 Surgical operation with implant of artificial internal device as the cause of abnormal reaction of the patient, or of later complication, without mention of misadventure at the time of the procedure
CPT/HCPCS: 36415; 71046; 73030-RT; 80048; 80069; 82550; 84460; 85018; 85025; 86140; 87070; 97110-GP; 97116-GP; 97162-GP; 97165-GO; 97530-GO; 97535-GO; A9270-GY; J0878; J1642; J1650; J7512; Q0169

== ENCOUNTER 2024-04-04 08:05 | Inpatient (IN) | payer MEDICARE, OTHER ==
[2024-04-04] MEDS ORDERED: oxyCODONE 5 MG Tab PO PRN (13:35)
[2024-04-04] MEDS ORDERED: Polyethylene Glycol 3350 Powder 17 GM Packet PO PRN (13:35)
[2024-04-04] MEDS ORDERED: Heparin Sodium 100 Units/ML 3 ML Syringe FLUSH PRN (13:35)
[2024-04-04] MEDS ORDERED: Naloxone 0.4 MG/ML SDV IV PRN (13:35)
[2024-04-04] MEDS: Acetaminophen 325 MG Tab PO SCH (14:36)
[2024-04-04] MEDS: Sodium Chloride 0.65% Nasal Spray 45 ML Bottle NASBOTH SCH (14:36)
[2024-04-04] MEDS: oxyCODONE 5 MG Tab PO PRN (15:25)
[2024-04-04] MEDS: Calcium Citrate/Vitamin D3 315 MG-250 Unit Tab PO SCH (18:33)
[2024-04-04] MEDS: sulfaSALAzine 500 MG Tab.EC PO SCH (18:33)
[2024-04-04] MEDS: DAPTOmycin 500 MG Vial IVPUSH SCH (18:35)
[2024-04-04] MEDS: Sodium Chloride 0.9% 10 ML Syringe IVPUSH PRN (18:35)
[2024-04-04] MEDS: Heparin Sodium 100 Units/ML 3 ML Syringe FLUSH SCH (18:42)
[2024-04-04] MEDS: Aspirin 81 MG Tab.EC PO SCH (20:37)
[2024-04-04] MEDS: Ipratropium 0.06% Nasal Spray 15 ML Bottle NASBOTH SCH (20:37)
[2024-04-05] MEDS ORDERED: DAPTOmycin 500 MG Vial IV SCH (09:00)
[2024-04-05] MEDS ORDERED: Enoxaparin 30 MG/0.3 ML Syringe SUBCUT SCH (09:00)
[2024-04-05] MEDS: Fluconazole 100 MG Tab PO SCH (09:37)
[2024-04-05] MEDS: Lactobacillus Rhamnosus GG (Probiotic) Cap PO SCH (09:37)
[2024-04-05] MEDS: predniSONE 5 MG Tab PO SCH (09:37)
[2024-04-05] MEDS: sulfaSALAzine 500 MG Tab.EC PO SCH (09:37)
[2024-04-05] MEDS: Cholecalciferol (Vitamin D3) 25 MCG Tab PO SCH (09:38)
[2024-04-05] MEDS: Lisinopril 10 MG Tab PO SCH (09:38)
[2024-04-05] MEDS: Ascorbic Acid 500 MG Tab PO SCH (09:38)
[2024-04-05] MEDS: Ferrous Sulfate 325 MG Tab PO SCH (09:38)
[2024-04-05] MEDS: Magnesium Oxide 400 MG Tab PO SCH (09:38)
[2024-04-05] MEDS: Zinc Sulfate 220 MG Cap PO SCH (09:38)
[2024-04-05] MEDS: Potassium Chloride 20 MEQ Tab.ER PO SCH (09:45)
[2024-04-05] MEDS: Dronabinol 2.5 MG Cap PO SCH (11:26)
[2024-04-05] MEDS: TERIPARATIDE SQ SCH (12:24)
[2024-04-05] MEDS: traMADol 50 MG Tab PO PRN (13:19)
[2024-04-05] MEDS: Sodium Chloride 0.65% Nasal Spray 45 ML Bottle NASBOTH PRN (21:13)
[2024-04-07] MEDS: oxyCODONE 5 MG Tab PO ONE (23:39)
[2024-04-08 07:45] LABS: ALBUMIN 2.2 g/dL (3.4-5.0); CALCIUM 8.6 mg/dL (8.5-10.1); CREATININE 0.7 mg/dL (0.70-1.30); EST CRCL DRUG DOSING (CG) 85.57 mL/min; PHOSPHORUS 2.8 mg/dL (2.6-4.7); POTASSIUM,K 4.3 mmol/L (3.5-5.1)
[2024-04-08 07:50] LABS: HEMATOCRIT 30.9 % (40.0-52.0); MEAN CORPUSCULAR HEMOGLOBIN 30.6 pg (26.0-32.0); MEAN CORPUSCULAR HGB CONC 32.4 g/dL (32.0-36.0); MEAN CORPUSCULAR VOLUME 94.5 fL (78.0-93.0); PLATELET COUNT,PLT 592 x10^3/uL (130-400); RED BLOOD CELL COUNT 3.27 x10^6/uL (4.5-6.0); WHITE BLOOD CELL COUNT,WBC 12.4 x10^3/uL (4.0-10.0)
[2024-04-08 08:01] LABS: C-REACTIVE PROTEIN 6.96 mg/dL (<=0.50)
[2024-04-08 08:15] LABS: EOSINOPHILS ABSOLUTE MAN 0.2 x10^3/uL (0.0-0.5); EOSINOPHILS PERCENT MAN 2 % (0-4); LYMPHOCYTES ABSOLUTE MAN 2.7 x10^3/uL (1.0-4.8); LYMPHOCYTES PERCENT MAN 22 % (25-50); MONOCYTES PERCENT MAN 8 % (2-11); NEUTROPHILS ABSOLUTE MAN 8.4 x10^3/uL (1.8-7.7); SEG NEUTROPHILS PERCENT MAN 68 % (50-80); STOMATOCYTES 1+ SLIGHT
[2024-04-08 08:17] LABS: HYPOCHROMASIA 1+ SLIGHT; PLATELET COUNT ESTIMATE INCREASED
[2024-04-08] MEDS: Ondansetron 4 MG Tab.DIS PO PRN (11:40)
[2024-04-11] MEDS: Sennosides/Docusate Sodium 50-8.6 MG Tab PO PRN (18:51)
[2024-04-11] MEDS: Al and Mag Hydroxide/Diphenhydramine/Lidocaine/Simethicone 237 ML Bottle PO PRN (20:25)
[2024-04-12 07:06] LABS: BASOPHILS PERCENT AUTO 0.1 % (0.2-1.2); EOSINOPHILS ABSOLUTE AUTO 0.1 x10^3/uL (0.0-0.5); EOSINOPHILS PERCENT AUTO 0.8 % (0.0-4.0); HEMATOCRIT 30.1 % (40.0-52.0); HEMOGLOBIN 9.6 g/dL (14.0-18.0); LYMPHOCYTES ABSOLUTE AUTO 1.7 x10^3/uL (1.0-4.8); LYMPHOCYTES PERCENT AUTO 16.4 % (25.0-50.0); MEAN CORPUSCULAR HEMOGLOBIN 29.8 pg (26.0-32.0); MEAN CORPUSCULAR HGB CONC 31.9 g/dL (32.0-36.0); MEAN CORPUSCULAR VOLUME 93.5 fL (78.0-93.0); MONOCYTES ABSOLUTE AUTO 0.9 x10^3/uL (0.0-0.8); MONOCYTES PERCENT AUTO 8.2 % (2.0-11.0); NEUTROPHILS ABSOLUTE AUTO 7.8 x10^3/uL (1.8-7.7); NEUTROPHILS PERCENT AUTO 73.6 % (50.0-80.0); PLATELET COUNT,PLT 492 x10^3/uL (130-400); RED BLOOD CELL COUNT 3.22 x10^6/uL (4.5-6.0); WHITE BLOOD CELL COUNT,WBC 10.6 x10^3/uL (4.0-10.0)
[2024-04-12 07:22] LABS: CALCIUM 8.3 mg/dL (8.5-10.1); CREATININE 0.7 mg/dL (0.70-1.30); EST CRCL DRUG DOSING (CG) 85.57 mL/min; POTASSIUM,K 4.6 mmol/L (3.5-5.1)
[2024-04-12 07:24] LABS: ANION GAP 11.6 mmol/L (5-15)
[2024-04-12] MEDS: hydrOXYzine HCl 25 MG Tab PO SCH (20:44)
[2024-04-15 07:19] LABS: HEMATOCRIT 31.5 % (40.0-52.0); HEMOGLOBIN 10.1 g/dL (14.0-18.0); MEAN CORPUSCULAR HEMOGLOBIN 29.6 pg (26.0-32.0); MEAN CORPUSCULAR HGB CONC 32.1 g/dL (32.0-36.0); MEAN CORPUSCULAR VOLUME 92.4 fL (78.0-93.0); PLATELET COUNT,PLT 495 x10^3/uL (130-400); RED BLOOD CELL COUNT 3.41 x10^6/uL (4.5-6.0); WHITE BLOOD CELL COUNT,WBC 10.9 x10^3/uL (4.0-10.0)
[2024-04-15 07:38] LABS: CREATININE 0.7 mg/dL (0.70-1.30); EST CRCL DRUG DOSING (CG) 84.17 mL/min
[2024-04-15 07:44] LABS: C-REACTIVE PROTEIN 8.94 mg/dL (<=0.50)
[2024-04-15 07:55] LABS: BAND PERCENT MAN 4 % (0-6); LYMPHOCYTES % ATYPICAL MANUAL 8 % (0); LYMPHOCYTES ABSOLUTE MAN 2.4 x10^3/uL (1.0-4.8); LYMPHOCYTES PERCENT MAN 14 % (25-50); MONOCYTES PERCENT MAN 9 % (2-11); NEUTROPHILS ABSOLUTE MAN 7.5 x10^3/uL (1.8-7.7); SEG NEUTROPHILS PERCENT MAN 65 % (50-80)
[2024-04-15 07:56] LABS: HYPOCHROMASIA 1+ SLIGHT; PLATELET COUNT ESTIMATE INCREASED
[2024-04-15] MEDS ORDERED: Al and Mag Hydroxide/Diphenhydramine/Lidocaine/Simethicone 237 ML Bottle PO PRN (15:11)
[2024-04-15] MEDS: Sodium Chloride 1 GM Tab PO SCH (16:09)
[2024-04-16 09:45] LABS: BASOPHILS PERCENT AUTO 0.2 % (0.2-1.2); EOSINOPHILS PERCENT AUTO 0.3 % (0.0-4.0); HEMATOCRIT 31.4 % (40.0-52.0); HEMOGLOBIN 10.1 g/dL (14.0-18.0); IMMATURE GRAN ABSOLUTE AUTO 0.12 x10^3/uL (0.00-0.07); LYMPHOCYTES ABSOLUTE AUTO 1.2 x10^3/uL (1.0-4.8); LYMPHOCYTES PERCENT AUTO 11.7 % (25.0-50.0); MEAN CORPUSCULAR HEMOGLOBIN 29.5 pg (26.0-32.0); MEAN CORPUSCULAR HGB CONC 32.2 g/dL (32.0-36.0); MEAN CORPUSCULAR VOLUME 91.8 fL (78.0-93.0); MONOCYTES ABSOLUTE AUTO 0.9 x10^3/uL (0.0-0.8); MONOCYTES PERCENT AUTO 8.7 % (2.0-11.0); NEUTROPHILS ABSOLUTE AUTO 7.9 x10^3/uL (1.8-7.7); NEUTROPHILS PERCENT AUTO 77.9 % (50.0-80.0); PLATELET COUNT,PLT 463 x10^3/uL (130-400); RED BLOOD CELL COUNT 3.42 x10^6/uL (4.5-6.0); WHITE BLOOD CELL COUNT,WBC 10.2 x10^3/uL (4.0-10.0)
[2024-04-16 10:07] LABS: A/G RATIO 0.71; ALBUMIN 2.5 g/dL (3.4-5.0); BILIRUBIN TOTAL 0.4 mg/dL (0.2-1.0); CALCIUM 8.3 mg/dL (8.5-10.1); CREATININE 0.8 mg/dL (0.70-1.30); EST CRCL DRUG DOSING (CG) 73.65 mL/min; POTASSIUM,K 4.2 mmol/L (3.5-5.1)
[2024-04-16 10:09] LABS: ANION GAP 12.2 mmol/L (5-15)
[2024-04-16 10:25] LABS: CORONAVIRUS COVID-19 NAA NEGATIVE (NEGATIVE); INFLUENZA A NAA NEGATIVE (NEGATIVE); INFLUENZA B NAA NEGATIVE (NEGATIVE); RESPIRATORY SYNCYTIAL VIR NAA NEGATIVE (NEGATIVE)
[2024-04-16] MEDS: Sodium Chloride 0.9% 500 ML IV ONE (11:26)
[2024-04-16] MEDS: hydrOXYzine HCl 25 MG Tab PO PRN (20:09)
[2024-04-17] MEDS: INDOMETHACIN 75 MG PO SCH (09:44)
[2024-04-22 07:04] LABS: BASOPHILS PERCENT AUTO 0.1 % (0.2-1.2); EOSINOPHILS ABSOLUTE AUTO 0.1 x10^3/uL (0.0-0.5); EOSINOPHILS PERCENT AUTO 1.1 % (0.0-4.0); HEMATOCRIT 30.4 % (40.0-52.0); HEMOGLOBIN 9.8 g/dL (14.0-18.0); IMMATURE GRAN ABSOLUTE AUTO 0.07 x10^3/uL (0.00-0.07); LYMPHOCYTES ABSOLUTE AUTO 1.7 x10^3/uL (1.0-4.8); LYMPHOCYTES PERCENT AUTO 21.4 % (25.0-50.0); MEAN CORPUSCULAR HEMOGLOBIN 29.2 pg (26.0-32.0); MEAN CORPUSCULAR HGB CONC 32.2 g/dL (32.0-36.0); MEAN CORPUSCULAR VOLUME 90.5 fL (78.0-93.0); MONOCYTES ABSOLUTE AUTO 0.6 x10^3/uL (0.0-0.8); MONOCYTES PERCENT AUTO 7.8 % (2.0-11.0); NEUTROPHILS ABSOLUTE AUTO 5.4 x10^3/uL (1.8-7.7); NEUTROPHILS PERCENT AUTO 68.7 % (50.0-80.0); PLATELET COUNT,PLT 400 x10^3/uL (130-400); RED BLOOD CELL COUNT 3.36 x10^6/uL (4.5-6.0); WHITE BLOOD CELL COUNT,WBC 7.9 x10^3/uL (4.0-10.0)
[2024-04-22 07:11] LABS: CREATININE 0.7 mg/dL (0.70-1.30); EST CRCL DRUG DOSING (CG) 84.17 mL/min
[2024-04-22 07:18] LABS: C-REACTIVE PROTEIN 2.91 mg/dL (<=0.50)
[2024-04-23] MEDS: DULoxetine 20 MG Cap PO SCH (16:04)
[2024-04-23] MEDS: Omeprazole 20 MG Cap.CR PO SCH (16:04)
[2024-04-23] MEDS: ceFAZolin 2 GM Vial IVPUSH SCH (17:50)
[2024-04-23] MEDS: Heparin Sodium 100 Units/ML 3 ML Syringe FLUSH SCH (17:52)
[2024-04-27] MEDS: Ipratropium 0.06% Nasal Spray 15 ML Bottle NASBOTH PRN (13:09)
[2024-04-29 07:25] LABS: C-REACTIVE PROTEIN 1.12 mg/dL (<=0.50); CALCIUM 8.4 mg/dL (8.5-10.1); CREATININE 0.6 mg/dL (0.70-1.30); EST CRCL DRUG DOSING (CG) 98.19 mL/min; POTASSIUM,K 3.8 mmol/L (3.5-5.1)
[2024-04-29 07:26] LABS: ANION GAP 8.8 mmol/L (5-15)
[2024-04-29 07:31] LABS: HEMATOCRIT 31.2 % (40.0-52.0); HEMOGLOBIN 9.9 g/dL (14.0-18.0); MEAN CORPUSCULAR HEMOGLOBIN 28.7 pg (26.0-32.0); MEAN CORPUSCULAR HGB CONC 31.7 g/dL (32.0-36.0); MEAN CORPUSCULAR VOLUME 90.4 fL (78.0-93.0); PLATELET COUNT,PLT 349 x10^3/uL (130-400); RED BLOOD CELL COUNT 3.45 x10^6/uL (4.5-6.0); WHITE BLOOD CELL COUNT,WBC 5.9 x10^3/uL (4.0-10.0)
[2024-04-29 07:54] LABS: CREATININE 0.6 mg/dL (0.70-1.30); EST CRCL DRUG DOSING (CG) 98.19 mL/min
[2024-04-29 08:05] LABS: EOSINOPHILS ABSOLUTE MAN 0.2 x10^3/uL (0.0-0.5); EOSINOPHILS PERCENT MAN 3 % (0-4); LYMPHOCYTES ABSOLUTE MAN 1.5 x10^3/uL (1.0-4.8); LYMPHOCYTES PERCENT MAN 26 % (25-50); MONOCYTES ABSOLUTE MAN 0.6 x10^3/uL (0.0-0.8); MONOCYTES PERCENT MAN 10 % (2-11); NEUTROPHILS ABSOLUTE MAN 3.6 x10^3/uL (1.8-7.7); SEG NEUTROPHILS PERCENT MAN 61 % (50-80)
[2024-04-29 08:06] LABS: HYPOCHROMASIA 1+ SLIGHT; PLATELET COUNT ESTIMATE ADEQUATE
[2024-04-29 08:07] LABS: ROULEAUX 1+ SLIGHT
[2024-04-30] MEDS: Cefadroxil 500 MG Cap PO SCH (20:17)
[2024-05-01] MEDS: predniSONE 20 MG Tab PO ONE (14:32)
[2024-05-01] MEDS: Famotidine 20 MG Tab PO SCH (20:16)
[2024-05-02] MEDS: predniSONE 5 MG Tab PO SCH (08:17)
[2024-05-04] MEDS: TERIPARATIDE SQ SCH (08:31)
[2024-05-06 07:02] LABS: HEMATOCRIT 32.4 % (40.0-52.0); HEMOGLOBIN 10.2 g/dL (14.0-18.0); MEAN CORPUSCULAR HEMOGLOBIN 28.1 pg (26.0-32.0); MEAN CORPUSCULAR HGB CONC 31.5 g/dL (32.0-36.0); MEAN CORPUSCULAR VOLUME 89.3 fL (78.0-93.0); PLATELET COUNT,PLT 344 x10^3/uL (130-400); RED BLOOD CELL COUNT 3.63 x10^6/uL (4.5-6.0); WHITE BLOOD CELL COUNT,WBC 7.7 x10^3/uL (4.0-10.0)
[2024-05-06 07:28] LABS: ALANINE AMINOTRANSFERASE,ALT 21 U/L (16-63); ANION GAP 11.9 mmol/L (5-15); BLOOD UREA NITROGEN,BUN 19 mg/dL (7-18); CALCIUM 8.5 mg/dL (8.5-10.1); CARBON DIOXIDE,CO2 27 mmol/L (21-32); CHLORIDE,CL 104 mmol/L (98-107); CREATINE KINASE,CK 21 U/L (39-308); CREATININE 0.6 mg/dL (0.70-1.30); EST CRCL DRUG DOSING (CG) 91.81 mL/min; ESTIMATED GFR 98 mL/min (>=60); GLUCOSE RANDOM 102 mg/dL (70-99); POTASSIUM,K 3.9 mmol/L (3.5-5.1); SODIUM,NA 139 mmol/L (136-145)
[2024-05-06 07:29] LABS: C-REACTIVE PROTEIN < 0.50 mg/dL (<=0.50)
[2024-05-06 07:48] LABS: BAND PERCENT MAN 3 % (0-6); EOSINOPHILS ABSOLUTE MAN 0.3 x10^3/uL (0.0-0.5); EOSINOPHILS PERCENT MAN 4 % (0-4); HYPERSEGMENTED NEUTROPHILS FEW; HYPOCHROMASIA 2+ MODERATE; LYMPHOCYTES ABSOLUTE MAN 1.8 x10^3/uL (1.0-4.8); LYMPHOCYTES PERCENT MAN 24 % (25-50); MONOCYTES ABSOLUTE MAN 1.2 x10^3/uL (0.0-0.8); MONOCYTES PERCENT MAN 15 % (2-11); NEUTROPHILS ABSOLUTE MAN 4.4 x10^3/uL (1.8-7.7); OVALOCYTES 1+ SLIGHT; PLATELET COUNT ESTIMATE ADEQUATE; SEG NEUTROPHILS PERCENT MAN 54 % (50-80)
[2024-05-13 07:07] LABS: BASOPHILS PERCENT AUTO 0.4 % (0.2-1.2); EOSINOPHILS ABSOLUTE AUTO 0.1 x10^3/uL (0.0-0.5); EOSINOPHILS PERCENT AUTO 1.3 % (0.0-4.0); HEMATOCRIT 35.2 % (40.0-52.0); HEMOGLOBIN 10.9 g/dL (14.0-18.0); IMMATURE GRAN ABSOLUTE AUTO 0.02 x10^3/uL (0.00-0.07); LYMPHOCYTES ABSOLUTE AUTO 2.5 x10^3/uL (1.0-4.8); LYMPHOCYTES PERCENT AUTO 31.9 % (25.0-50.0); MEAN CORPUSCULAR HEMOGLOBIN 27.3 pg (26.0-32.0); MEAN CORPUSCULAR VOLUME 88.2 fL (78.0-93.0); MONOCYTES ABSOLUTE AUTO 0.7 x10^3/uL (0.0-0.8); MONOCYTES PERCENT AUTO 9.3 % (2.0-11.0); NEUTROPHILS ABSOLUTE AUTO 4.5 x10^3/uL (1.8-7.7); NEUTROPHILS PERCENT AUTO 56.8 % (50.0-80.0); PLATELET COUNT,PLT 298 x10^3/uL (130-400); RED BLOOD CELL COUNT 3.99 x10^6/uL (4.5-6.0); WHITE BLOOD CELL COUNT,WBC 7.8 x10^3/uL (4.0-10.0)
[2024-05-13 07:38] LABS: CREATININE 0.8 mg/dL (0.70-1.30); EST CRCL DRUG DOSING (CG) 68.85 mL/min
[2024-05-17] MEDS: Furosemide 20 MG Tab PO SCH (09:01)
[2024-05-17 15:54] VITALS: PULSE 90
[2024-05-17 15:56] VITALS: BP 138/76
== END 2024-05-17 15:45 | disposition home or self-care (01) | DRG 949 ==
LOC: VM.MS 11:32
PROVIDERS: ADMIT Internal Medicine; ATTEND Internal Medicine
DX: T84.53XD Infection and inflammatory reaction due to internal right knee prosthesis, subsequent encounter (principal); E87.1 Hypo-osmolality and hyponatremia; K51.90 Ulcerative colitis, unspecified, without complications; D50.0 Iron deficiency anemia secondary to blood loss (chronic); E09.9 Drug or chemical induced diabetes mellitus without complications; T38.0X5A Adverse effect of glucocorticoids and synthetic analogues, initial encounter; I10 Essential (primary) hypertension; Z66 Do not resuscitate; M45.9 Ankylosing spondylitis of unspecified sites in spine; F43.20 Adjustment disorder, unspecified; M80.00XD Age-related osteoporosis with current pathological fracture, unspecified site, subsequent encounter for fracture with routine healing; Z88.0 Allergy status to penicillin; Z88.8 Allergy status to other drugs, medicaments and biological substances; Z79.82 Long term (current) use of aspirin; Z79.899 Other long term (current) drug therapy
CPT/HCPCS: 0241U; 36415; 80048; 80053; 80069; 82550; 82565; 84295; 84460; 85025; 86140; 97110-GO; 97110-GP; 97116-GP; 97162-GP; 97164-GP; 97166-GO; 97530-GO; 97530-GP; 97535-GO; A9270-GY; J0690; J0878; J1642; J7040; J7512; Q0167; Q3014

== ENCOUNTER 2024-10-03 20:48 | Emergency (ER) | payer MEDICARE, OTHER ==
[2024-10-03 21:13] LABS: BASOPHILS ABSOLUTE AUTO 0.0 x10^3/uL (0.0-0.2); BASOPHILS PERCENT AUTO 0.4 % (0.2-1.2); EOSINOPHILS ABSOLUTE AUTO 0.1 x10^3/uL (0.0-0.5); EOSINOPHILS PERCENT AUTO 0.9 % (0.0-4.0); IMMATURE GRAN ABSOLUTE AUTO 0.02 x10^3/uL (0.00-0.07); IMMATURE GRAN PERCENT AUTO 0.30 % (0.00-0.43); LYMPHOCYTES ABSOLUTE AUTO 2.8 x10^3/uL (1.0-4.8); LYMPHOCYTES PERCENT AUTO 36.3 % (25.0-50.0); MONOCYTES ABSOLUTE AUTO 0.9 x10^3/uL (0.0-0.8); MONOCYTES PERCENT AUTO 11.3 % (2.0-11.0); NEUTROPHILS ABSOLUTE AUTO 4.0 x10^3/uL (1.8-7.7); NEUTROPHILS PERCENT AUTO 50.8 % (50.0-80.0); PLATELET COUNT,PLT 292 x10^3/uL (130-400); RED BLOOD CELL COUNT 3.84 x10^6/uL (4.5-6.0); WHITE BLOOD CELL COUNT,WBC 7.8 x10^3/uL (4.0-10.0)
[2024-10-03 21:30] LABS: A/G RATIO 1.44; ALANINE AMINOTRANSFERASE,ALT 19 U/L (16-63); ASPARTATE AMNIOTRANSFERASE,AST 24 U/L (15-37); BILIRUBIN TOTAL 0.4 mg/dL (0.2-1.0); BLOOD UREA NITROGEN,BUN 25 mg/dL (7-18); CARBON DIOXIDE,CO2 29 mmol/L (21-32); CHLORIDE,CL 99 mmol/L (98-107); CREATININE 1.3 mg/dL (0.70-1.30); GLUCOSE RANDOM 246 mg/dL (70-99); POTASSIUM,K 3.3 mmol/L (3.5-5.1); PROTEIN TOTAL,TP 6.1 g/dL (6.4-8.2); SODIUM,NA 140 mmol/L (136-145)
[2024-10-03 21:31] LABS: ESTIMATED GFR 56 mL/min (>=60)
[2024-10-03] MEDS ORDERED: Zoledronic Acid in Water 5 MG in Premix Bag 1 BAG IV ONE (21:52)
[2024-10-04 00:08] VITALS: BP 140/66; PULSE 88
== END 2024-10-04 00:05 | disposition short-term general hospital (02) ==
LOC: VM.ED 20:48
DX: E83.52 Hypercalcemia (principal); S12.600A Unspecified displaced fracture of seventh cervical vertebra, initial encounter for closed fracture; E78.00 Pure hypercholesterolemia, unspecified; I10 Essential (primary) hypertension; Z88.1 Allergy status to other antibiotic agents; Z88.0 Allergy status to penicillin; Z79.899 Other long term (current) drug therapy; Z88.8 Allergy status to other drugs, medicaments and biological substances; W18.39XA Other fall on same level, initial encounter; Y93.89 Activity, other specified
CPT/HCPCS: 70450; 71045; 72125; 72170; 80053; 83735; 85025; 96360; 96361; 99284; 99285-25; J7030